=== PATIENT | male | born 1940 | race African-American/Black ===

== ENCOUNTER 2025-03-29 10:08 | Outpatient (CLI) | payer MEDICARE, SELFPAY ==
--- NOTE | 2025-03-29 10:11 | XR_ITS ---
FINAL REPORT CLINICAL HISTORY: Left knee pain FINDINGS: LEFT KNEE Three views were obtained. There is no fracture or dislocation. There are moderate to severe degenerative changes. The bones are osteopenic. No soft tissue abnormality is identified. IMPRESSION: Moderate to severe degenerative changes. Reviewed, Interpreted and Dictated by Kevin Cantor MD Transcribed by Shari Gatica Authenticated and [facility]
== END 2025-03-29 23:59 | disposition home or self-care (01) ==
LOC: RAD 10:09
PROVIDERS: PCP Internal Medicine; Visit Provider Physician Assistant
DX: M17.12 Unilateral primary osteoarthritis, left knee (principal); M85.862 Other specified disorders of bone density and structure, left lower leg
CPT/HCPCS: 73562

== ENCOUNTER 2025-06-08 10:24 | Outpatient (CLI) | payer MEDICARE, SELFPAY ==
--- OUTSIDE RECORDS SUMMARY | 2021-10-30 08:15 | XMS_ITS | Continuity of Care Document ---
Author Organization [facility] Address [address] [facility] [address] [place] [address] Phone Care Team Providers Care Rn Neurosurgical Name Role Phone Jignesh Cowart MD Unavailable [...] Visual Field Gomez No Offic/outpt E&m [facility] 45 Advance Directives Directive Yes / No Effective Date File Name No Information Encounters Encounter Description Practice Location Reason(s) For Visit Diagnoses Date Provider Providers Copied on Encounter [facility], [address], [place], [address] [place] [address] , tel:[phone] [facility] Dermatochalasis of both upper eyelidsDermatoch alasis of left upper eyelid 1 [facility] E[place]. [address], [address] [place] [address], . tel:[phone] Referring Provider: Jignesh Shields, [address], [address] [place] [address]. tel:[phone] [facility], [address] [place] [address], [address] [place] [address] , tel:[phone] [facility] No Information 1 [facility]. [address], [address] [place] [address], . tel:[phone] Referring Provider: Jignesh Shields, [address], [address] [place] [address]. tel:[phone] [facility] [address], [address] [place] [address] , tel:[phone] [facility] No Information 1 [facility]. [address], [address] [place] [address], . tel:[phone] Referring Provider: Jignesh Shields, [address], [place], [address] [place] [address]. tel:[phone] [facility], [address] , [place], [address] [place] [address] , tel:[phone] [facility] No Information 1 Lesly Hernandez. [address] [facility] [address] , [place], [address] [place] [address], . tel:[phone] [facility], [address], [place], [place], [id number] , tel:[phone] [facility] Dermatochalasis of both upper eyelidsDermatoch alasis of left upper eyelid 1 [facility] [place]. [address], [place], [address] [place] [address], . tel:[phone] Referring Provider: Jignesh Shields, [address] [facility], [place], [address] [place] [address]. [phone] [facility], [address] [facility], [place], [address] [place] [address] , tel:[phone] [facility] Dermatochalasis of left upper eyelidDermatocha lasis of both upper eyelids 1 Sup[facility] Egan. [address], [place], [address] [place] [address], . tel:[phone] Referring Provider: Jignesh Shields, [address] [facility] , [place], [address] [place] [address]. tel:[phone] Offic/outpt E&m [place] 45 [facility], [address] , [place], [address] [place] [address] , tel:[phone] [facility] Dermatochalasis of both upper eyelidsDermatoch alasis of left upper eyelid 1 Sup[facility] Egan. [address], [place], [place], [id number], . tel:[phone] Referring Provider: Bernie Mabry , [address] [place] [address], [address]. tel:[phone] Family History Family Member Type Diagnosis Age At Onset No Information Payers Payer name Insurance type Covered constitution party ID Authoriza tisadia(s) [employer] Dual Medicare CI [id number] Social History Type Description Quantity Date Captured [...]
--- OUTSIDE RECORDS SUMMARY | 2025-04-06 04:17 | XMS_ITS | Continuity of Care Document ---
Author Organization [facility] Address [address] [place] [address] Phone Care Team Providers Care Chiropractic Care Name Role Phone Moe MSN, TALENT CONSULTANT, Jessica Unavailable Unavai lable Allergies, Adverse Reactions, Alerts Substance Reaction Status Criticality NO KNOWN ALLERGIES Active No Inform ation Medications Medication Instructions Dosage Effective Dates (start - stop) Status Comments metoprolol succinate ER 50 mg tablet,extended release 24 hr take 1 tablet by oral route every day 50 MG - Active aspirin 81 mg tablet,delayed release take 1 tablet by oral route every day 81 MG - Active vitamin E 670 mg (1,000 unit) capsule take one tablet daily - Active diclofenac 1 % topical gel apply 2 gram by topical route 4 times every day to the affected area(s) 2.00 gram - Active metformin ER 500 mg tablet,extended release 24hr (osmotic) take 1 tablet by oral route 2 times every day with the evening meal 500 MG - Active pantoprazole 20 mg tablet,delayed release take 1 tablet by oral route every day 20 MG - Active valsartan 40 mg tablet take 1 tablet by oral route every day 40 MG - Active Jardiance 10 mg tablet take 1 tablet by oral route every day in the morning 10 MG - Active sertraline 25 mg tablet take 1 tablet by oral route every day 25 MG - Active Advance Directives Directive Yes / No Effective Date File Name No Information Encounters Encounter Description Practice Location Reason(s) For Visit Diagnoses Date Provider [facility], [address] [place], [address], [place] tel:[phone] No Information 5 Rosa Jessica. [address], [place], [id number] , [place]. tel: [phone] [facility], [address] [place] [address], [facility], tel:[phone] [facility] Vitamin B12 deficiency 5 Rosa Jessica. [address], [place], [id number] , [place]. tel: [phone] [facility], [address] [place] [address], [facility], tel:[phone] 72 [facility] [place] b12 # 2 of 6 (chief complaint) Vitamin D deficiencyVitamin B12 deficiency 5 Rosa Jessica. [address], [place], [address] [place] [address] , [place]. tel: [phone] [facility], [address] [place] [address], [facility], tel:[phone] 72 [facility] Follow up on labs (chief complaint) Left Knee Pain (chief complaint) Vitamin B12 deficiencyPain in left kneeType 2 diabetes mellitus without complicationsVitamin D deficiencyBody mass index [BMI] 27.0-27.9, adult Feb- 5 Rosa Jessica. [address], [place], [id number] , [place]. tel: [phone] [facility], [address] [place] [address], [facility], [place] tel:[phone] [facility] No Information 5 Rosa Jessica. [address] [place], [place], [address] [place] [address] , . tel: [phone] [facility], [address] [place] [address], [facility], [place] tel:[phone] [place] new to establish (chief complaint) Depression screening (chief complaint) Prapare (chief complaint) Essential tremorExtreme povertyLess than a high school diplomaEncounter for screening for depressionChronic atrial fibrillation, unspecifiedEssential (primary) hypertensionType 2 diabetes mellitus without complicationsBody mass index [BMI] 28.0-28.9, adultDepressionAnxiety 5 Moe Lopez. [address] [place], [id number] , . tel: [phone] Family History Family Member Type Diagnosis Age At Onset Daughter Problem Alive and well Daughter Problem cause of , complication s from DM Sister Problem Alive and well Daughter Problem Diabetes mellitus Daughter Problem Alive and well Daughter Problem Alive and well Son Problem cause of , complication s of DM Father Problem was shot while in the line o f duty, motorcycle police officer Mother Problem natural causes Son Problem Alive and well Daughter Problem Alive and well Son Problem Diabetes mellitus Son Problem Diabetes mellitus Daughter Problem Diabetes mellitus Payers Payer name Insurance type Covered green party ID Authormarciala berenice(s) [facility] [employer] CI [id number] Social History Type Description Quantity Date Captured Comments Alcohol Use Details Unknown Caffeine Use Details Unknown Tobacco Use Status No Information Smoking Status No Information Sex Male Sexual Orientation Straight or heterosexual Feb Gender Identity Male Chief Complaint And Reason For Visit No Information Plan Of Treatment Date Type Action Status Goal Diabetes screening. Due on A due Goal Vitamin B12. Due on 026 due Goal Hemoglobin A1C. Due on due Goal GFR. Due on due Goal Pneumococcal vaccine. Due on due Goal Foot exam. Due on due Goal Obtain Height, Weight, and B IL. Due on due Goal Tobacco screening. Due on Ap due Goal ECG. Due on due Goal Urine microalbumin. Due on A due Goal CBC. Due on due Goal Generalized Anxi ety Disorder - 7 (MANJINDER-7). Due on due Goal Follow up Plan f or abnormal BMI (Less than 18.5, greater than 25). Due on due Goal Dental exam. Due on due Goal Influenza vaccine. Due on Ma due Goal Depression screening. Due on due Goal CMP. Due on due Goal Lipid panel. Due on due Goal Vitamin D. Due on due Goal Urinalysis due Goal Dilated eye exam. Due on March due Goal Obtain blood Pressure. Due o n due Goal Drug Abuse Scree clotilde Test (DAST-10). Due on due Goal Tobacco Use Screening. Due o n due Goal Unhealthy drug use screening due Goal Tobacco screening. Due on Ap due Goal Follow up Plan f or abnormal BMI (Less than 18.5, greater than 25). Due on due Goal Urinalysis due Goal Generalized Anxi ety Disorder - 7 (MANJINDER-7). Due on due Goal Obtain blood Pressure. Due o n due Goal Lipid panel. Due on due Goal Pneumococcal vaccine. Due on due Goal Vitamin B12. Due on due Goal CMP. Due on due Goal Obtain Height, Weight, and B IL. Due on due Goal Hemoglobin A1C. Due on due Goal Depression screening. Due on due Goal Influenza vaccine. Due on due Goal Tobacco Use Screening. Due o n due Goal Vitamin D. Due on due Goal CBC. Due on due Goal ECG. Due on due Goal GFR. Due on due Goal Diabetes screening. Due on A due Goal Urine microalbumin. Due on A due Goal Dilated eye exam. Due on March due Goal Drug Abuse Scree clotilde Test (DAST-10). Due on due Goal Foot exam. Due on due Goal Unhealthy drug use screening due Goal Dental exam. Due on 025 due Goal Urine microalbumin. Due on A due Goal Follow up Plan f or abnormal BMI (Less than 18.5, greater than 25). Due on due Goal Lipid panel. Due on due Goal CMP. Due on due Goal Tobacco Use Screening. Due o n due Goal Tobacco screening. Due on Ap due Goal ECG. Due on due Goal Drug Abuse Scree clotilde Test (DAST-10). Due on due Goal Generalized Anxi ety Disorder - 7 (MANJINDER-7). Due on due Goal Vitamin D. Due on due Goal Obtain Height, Weight, and B IL. Due on due Goal Influenza vaccine. Due on due Goal Dental exam. Due on due Goal Obtain blood Pressure. Due o n due Goal Foot exam. Due on due Goal CBC. Due on due Goal Vitamin B12. Due on due Goal Dilated eye exam. Due on March due Goal Hemoglobin A1C. Due on due Goal Pneumococcal vaccine. Due on due Goal Unhealthy drug use screening due Goal Urinalysis due Goal GFR. Due on due Goal Depression screening. Due on due Goal Diabetes screening. Due on A due Goal Obtain blood Pressure. Due o n due Goal Obtain Height, Weight, and B IL. Due on due Goal Influenza vaccine. Due on due Goal Vitamin B12. Due on due Goal Follow up Plan f or abnormal BMI (Less than 18.5, greater than 25). Due on due Goal Tobacco Use Screening. Due o n due Goal Generalized Anxi ety Disorder - 7 (MANJINDER-7). Due on due Goal Urinalysis due Goal Vitamin D. Due on due Goal Tobacco screening. Due on due Goal Foot exam. Due on due Goal Dilated eye exam. Due on Feb due Goal Unhealthy drug use screening due Goal Depression screening. Due on due Goal Hemoglobin A1C. Due on due Goal Lipid panel. Due on 026 due Goal Dental exam. Due on 025 due Goal Pneumococcal vaccine. Due on due Goal Drug Abuse Scree clotilde Test (DAST-10). Due on due Goal ECG. Due on due Goal Urine microalbumin. Due on A due Goal Diabetes screening. Due on A due Goal GFR. Due on due Goal CBC. Due on due Goal CMP. Due on due Goal Obtain blood Pressure. Due o n due Goal Diabetes screening. Due on A due Goal Tobacco screening. Due on due Goal Generalized Anxi ety Disorder - 7 (MANJINDER-7). Due on due Goal Vitamin D. Due on due Goal Depression screening. Due on due Goal Dilated eye exam. Due on Feb due Goal Influenza vaccine. Due on due Goal Vitamin B12. Due on due Goal Pneumococcal vaccine. Due on due Goal CMP. Due on due Goal Urinalysis due Goal Drug Abuse Scree clotilde Test (DAST-10). Due on due Goal Unhealthy drug use screening due Goal Tobacco Use Screening. Due o n due Goal Follow up Plan f or abnormal BMI (Less than 18.5, greater than 25). Due on due Goal ECG. Due on due Goal Foot exam. Due on due Goal Dental exam. Due on due Goal CBC. Due on due Goal Obtain Height, Weight, and B IL. Due on due Goal Lipid panel. Due on due Goal Hemoglobin A1C. Due on due Goal GFR. Due on due Goal Urine microalbumin. Due on A due Goal Lifestyle education regardin g diet completed Goal Influenza vaccine. Due on due Goal Dilated eye exam. Due on Feb due Goal GFR. Due on due Goal Obtain blood Pressure. Due o n due Goal Urinalysis due Goal Urine microalbumin. Due on A due Goal Foot exam. Due on due Goal Pneumococcal vaccine. Due on due Goal Diabetes screening. Due on A due Goal Dental exam. Due on due Goal ECG. Due on due Goal Depression screening. Due on due Goal Hemoglobin A1C. Due on due Goal Tobacco Use Screening. Due o n due Goal CMP. Due on due Goal Vitamin B12. Due on due Goal Follow up Plan f or abnormal BMI (Less than 18.5, greater than 25). Due on due Goal Unhealthy drug use screening due Goal Drug Abuse Scree clotilde Test (DAST-10). Due on due Goal Lipid panel. Due on due Goal Vitamin D. Due on due Goal CBC. Due on due Goal Tobacco screening. Due on Ap due Goal Obtain Height, Weight, and B IL. Due on due Goal Generalized Anxi ety Disorder - 7 (MANJINDER-7). Due on due Goal Lifestyle education regardin g diet completed Referral Referred To: [facility] Ordered: Referrals: Cardiology. [facility]. Location: [place]. Evaluate and treat Appointment date/timeframe: 03/16/2025 ordered History Of Present Illness Encounter Date Complaint History Of Prese nt Illness b12 # 2 of 6 Demario is here t kemal for b12 # 2 of 6RTC 1 week for next injection Left Knee Pain It occurs consta ntly and is worsening. Location: left knee. The pain is aching and sharp. Context: there is no injury. The pain is aggravated by movement. Associated symptoms include decreased mobility, joint tenderness, limping and swelling. Pertinent negatives include bruising, crepitus and joint instability. Additional information: long standing osteo arthritis, and joint effusion of left knee. (previously hospitalized in [place] for his knee). Follow up on labs Demario's labs are back today. Provider is going to go over labs with patient.He is a newer pt to us, and today reports he has been out of his medications for months.He recently relocated here from [place] to live with his daughter.Alk Phos is 130LDL 63, trigs 221b12 209B12 injection given today in clinic. Pt to rtc in 1 week for second b12 injection.will do series of 6, then change to monthlyVit D 20.2TSH okBP: 148/96- started on Valsartan 40 mg and was taking 50 mg of metoprolol succhas been out of medications, but has been sent to our pharmacy- and medications have arrivedhe reports is taking now. new to establish Demario is an 84 yo Male here today to establish care. His daughter and are here with him. Daughter is reporting signs of early dementia, possible parkinson disease. She reports he has a tremor when writing or eating. Has Hx of a-fib- sees cardiology monthlyHTN- on medication- does not know what medication at this timeType 2 DM- on ozempic currentlyBIL Knee pain- hx of getting steroid injection in both knees-osteoarthritis.Demario has relocated from [place], [place] to live here with his daughter r/t his health disparities.He is out of some of his medicationsHe does not know what medication he is takingI have called [facility] in [place], [place] [phone] and left message to fax a current list of medication ( pharmacy was closed for lunch)- they did fax over a list of his medication in the past three months, only sertraline 50 mg was on his list.He has been on Metformin, but this causes him too much loose stools. She reports he is on Ozempic as well, however, does not know the dose, or when the last time he had it. He wears a depends r/t incontinence and decreased mobility. He is a falls risk.Per his daughter and his report, he has not had any falls, but walks in a shuffle, with two canes, and has tremors. He would benefit from a walker, and some other DME at his home: potty chair, shower chair, depends. He is currently without insurance at this time and cannot afford these things. She would like him to be evaluated for Parkinson disease, and referral to Neurology.- but again cannot go at this time r/t lack of insurance. She is filing for insurance currently, and would like to wait until it is in place.BP- 145/83 uncontrolled, hx of a-fib. Will start [id number] 9.4- has not had DM eye exam in 2 years- will start Jardiance and Metformin ERnon-fasting labs collected today- will review with results in 1-2 weeks. Dwain Prakash complete d 03/01/25. -mamadou ERICKSON Depression screening Depression screening completed 03/01/25. Pt scored 0, provider aware. -MAMADOU ERICKSON Instructions Date Instruction Additional Infor letty 15 minutes of sun ex posure daily to naturally raise vitamin D levelsstart taking weekly vit D supplement Related to Vitamin D deficiency Patient educated on the importance of improved glycemic control. Counseled on diet, exercise and other lifestyle modifications. Monitor blood glucose and keep a log as instructed by checking fasting glucose in the AM and non fasting before bedtime with any additional checks as instructed. Patient instructed to bring glucose log to all scheduled appointments. Instructed on the importance of taking all medications as prescribed. Patient aware of the importance of diabetic eye exams, dental check ups, foot exams and diabetic foot care. Patient verbalized understanding. Related to Type 2 diabetes mellitus without complications rest, ice, compressi on as instructed to reduce post joint injection(s) pain and swelling Related to Pain in left knee B-12 injection given in office today. Eat foods rich in B-12. Additional oral B12 replacement if indicated. Related to Vitamin B12 deficiency Giving encouragement to exercise Related to Body mass index [BMI] 27.0-27.9, adult Lifestyle education regarding di et Related to Body mass index [BMI] 27.0-27.9, adult Discussed stress red uction techniques. Take medications as prescribed. Limit caffeine and nicotine. Try to follow a set sleep schedule. Get daily moderate exercise if able to tolerate. Related to Anxiety Patient instructed o f the importance of taking medications as prescribed, following a low salt diet as well as getting physical activity as tolerated. Patient advised to keep BP log daily checking each morning and before bed. Patient to call the clinic if systolic blood pressure is greater than 150 and/or diastolic blood pressure is staying greater than 90. Related to Essential (primary) hypertension Patient educated on the importance of maintaining glycemic control. Counseled on diet, exercise and other lifestyle factors that can impact glucose control. Monitor blood glucose and keep a log as instructed by checking fasting glucose in the AM and non fasting before bedtime with any additional checks as instructed. Patient instructed to bring glucose log to all scheduled appointments. Instructed on the importance of taking all medications as prescribed. Patient aware of the importance of diabetic eye exams, dental check ups, foot exams and diabetic foot care. Patient verbalized understanding. Related to Type 2 diabetes mellitus without complications Giving encouragement to exercise Related to Body mass index [BMI] 28.0-28.9, adult Lifestyle education regarding di et Related to Body mass index [BMI] 28.0-28.9, adult Assessments Type Assessment Date No Information
--- OUTSIDE RECORDS SUMMARY | 2025-04-10 21:15 | XMS_ITS ---
Author Organization [employer] Address [address] [place] [address] Care Team Providers Care Bee Breeder Name Role Phone Unique Mckeon Primary Care Provider REASON FOR VISIT Lab Encounters Encounter Location Date Provider Diagnosis [facility] [address] [place], [place] [phone] 04/11/2025 Unique Mckeon Plan Of Treatment No Information Progress Notes * Demario KEVIN SDOB: (85 yo M)Acc No.[id number]:04/11/2025 UNLOCKED PROGRESS NOTE Patient: Cornelius gonzalezDemario quick Provider: Madeleine Mckeon :1940 A ge:84 Y S ex:Male Date:04/11/2025 Address:[address] [place] [address], [address] [place], [place] [id number] Subjective: * Chief Complaints: * L ab [...] Temp:98.0F, Ht:67in, Wt:151.0lbs, BMI:23.65Index, Oxygen Sat:94%, Pain Scale:-10 * 10/10/2024 BP:133/83mm Hg, RR:16/min, P ulse:78/min, Temp:98.2F, Ht:67in, Wt:147.8lbs, BMI:23.15Index, Oxygen Sat:94%, Pain Scale:01-10 * Electronic signature of Murali Mckeon MD on 06/08/2025 at 10:27 AM EDT Sign off status: Pending * Provider: Madeleine Mckeon Date: 0 04/11/2025 Generated for Marii tong/Julian/Maribel on: 0 06/08/2025 10:27 AM EDT
--- OUTSIDE RECORDS SUMMARY | 2025-04-11 09:15 | XMS_ITS ---
Author Organization [employer] Address [address] [place] [address] Care Team Providers Care Medical Clinic Manager Name Role Phone Unique Mckeon Primary Care Provider [phone] REASON FOR VISIT Lab Encounters Encounter Location Date Provider Diagnosis [facility] [address] [place], [place] [phone] 04/11/2025 Unique Mckeon Plan Of Treatment No Information Progress Notes * Demario KEVIN SDOB: (85 yo M)Acc No.[id number]:04/11/2025 UNLOCKED PROGRESS NOTE Patient: Cornelius gonzalezDemario quick Provider: Madeleine Mckeon :1940 A ge:84 Y S ex:Male Date:04/11/2025 Address:[address] [place] [address], [address] [place], [place] [phone] Subjective: * Chief Complaints: * L ab [...] of Murali Mckeon MD on 06/08/2025 at 10:28 AM EDT Sign off status: Pending * Provider: Madeleine Mckeon Date: 0 04/11/2025 Generated for Marii tong/Julian/Maribel on: 0 06/08/2025 10:28 AM EDT
--- OUTSIDE RECORDS SUMMARY | 2025-04-19 10:20 | XMS_ITS ---
Author Organization [employer] Address [address] [place] [address] Care Team Providers Care Laminator Printed Circuit Boards Name Role Phone Unique Mckeon Primary Care Provider REASON FOR VISIT routine visit Encounters Encounter Location Date Provider Diagnosis [facility] [address] [place], [place] [phone] 04/19/2025 Unique Mckeon Plan Of Treatment No Information Progress Notes * Demario KEVIN SDOB: (85 yo M)Acc No.[id number]:04/19/2025 UNLOCKED PROGRESS NOTE Progress Notes Patient: Cornelius villeda Demario [place] Provider: Madeleine Mckeon :1940 A ge:84 Y S ex:Male Date:04/19/2025 Address:[address] [place] [address], [address] [place], [place] [id number] Subjective: * Chief Complaints: * R outine visit Objective: Past Vitals:* 02/08/2025 BP:139/87mm Hg, RR:15/min, [...] Temp:98.2F, Ht:67in, Wt:147.8lbs, BMI:23.15Index, Oxygen Sat:94%, Pain Scale:-10 * Electronic signature of Murali Mckeon MD on 06/08/2025 at 10:28 AM EDT Sign off status: Pending * Provider: Madeleine Mckeon Date: 0 04/19/2025 Generated for Marii tong/Julian/Maribel on: 0 06/08/2025 10:28 AM EDT
--- NOTE | 2025-06-08 10:15 | CA_ITS ---
FINAL REPORT CLINICAL HISTORY: Afib on blood thinners, S/p fall with extensive bruising to posterior leg with pain and edema. FINDINGS: DUPLEX VENOUS SONOGRAPHY OF THE LEFT LOWER EXTREMITY Multiple transverse and longitudinal scans were performed of the femoropopliteal deep venous system, with augmentation and compression maneuvers. FINDINGS: Normal phasic flow was noted in the visualized deep venous system. No intraluminal increased echogenicity is noted to suggest thrombus. There is normal compression and augmentation of the venous structures. No abnormal venous collaterals are seen. IMPRESSION: No evidence of deep venous thrombosis of the left lower extremity. Reviewed, Interpreted and Dictated by Dasha Ly MD Transcribed by Keyonna Terry Authenticated and [facility]
--- OUTSIDE RECORDS SUMMARY | 2025-06-08 10:27 | XMS_ITS | Patient Health Record ---
Author Organization [facility] Address [address] [place] [id number] Care Team Providers Care Business Resiliency Manager Name Role Phone LindaUnique Primary Care Provider Allergies Allergen (clinical drug ingredient) Drug/Non Drug Allergy documented on EMR Reaction Allergy Type Onset Date Status angiotensin-converting enzyme inhibitor (FN) ALFONZO Inhibitors Angioedema Drug Allergy 05/06/2021 Acti ve Results Component Value Reference Range Flag Notes DEPRESSION SCREENING Reviewed date:01/05/2025 12:48:06 PM Interpretation: Performing Lab: Notes/Report: Advance Directive Reviewed date:01/05/2025 12:48:17 PM Interpretation: Performing Lab: Notes/Report: MONITORING/COUNSELING PHYSIC AL ACTIVITY Reviewed date:01/05/2025 12:48:29 PM Interpretation: Performing Lab: Notes/Report: FALL RISK ASSESSMENT Reviewed date:01/05/2025 12:48:39 PM Interpretation: Performing Lab: Notes/Report: A1c w/GlycoMark(R) Reflex Reviewed date:10/10/2024 09:43:11 AM Interpretation: Performing Lab:[facility] [address] [id number], Phone - [phone], Director - Sameer Notes/Report: Hb A1c Diabetic Assessment 13.3 H Note: A reflex test was ordered on this specimen. If A1c results are between a value of 6.0 to 8.0 (including 6.0 and 8.0), GlycoMark testing is performed. GlycoMark reflects post prandial glucose spikes from the past 2 weeks, where as A1c reflects average glycemic control over the past 3 months. Reference Range: Normal: <5.7 Increased risk for diabetes: 5.7 - 6.4 Ongoing Hyperglycemia: >6.4 Glycemic control for adults with diabetes: <7.0 (ADA) Estimated Average Glucose 335 GlycoMark(R)(1,5 AG) TNP Testing Not Indicated GlycoMark(TM) is intended for use with managing glycemic control in diabetic patients. A low result corresponds to high glucose peaks. 1, 5-AG blood levels can be affected by clinical conditions or medications. Please refer to the directory of services or [facility] website test menu for detailed list of limitations. Vitamin B12 and Folate Reviewed date:01/12/2025 07:43:51 AM Interpretation: Performing Lab:[facility] [address] [id number], Phone - [phone], Director - Sameer Notes/Report: Vitamin B12 776 163-7078 pg/mL Folate (Folic Acid), Serum 16.2 >3.0 ng/mL A serum folate concentration of less than 3.1 ng/mL is considered to represent clinical deficiency. Hemoglobin A1C Reviewed date:01/12/2025 07:43:51 AM Interpretation: Performing Lab:[facility] [place], [address] [place] [id number], Phone - [phone], Director - Sameer Notes/Report: Hemoglobin A1c 11.7 4.8-5.6 % H . Prediabetes: 5.7 - 6.4 Diabetes: >6.4 Glycemic control for adults with diabetes: <7.0 Hemoglobin A1C Reviewed date:07/08/2024 08:21:57 AM Interpretation: Performing Lab:[facility] [address] [id number], Phone - [phone], Director - Sameer Notes/Report: Hemoglobin A1c 12.4 4.8-5.6 % H . Prediabetes: 5.7 - 6.4 Diabetes: >6.4 Glycemic control for adults with diabetes: <7.0 Lipid Panel With LDL/HDL Rat io Reviewed date:10/10/2024 09:43:11 AM Interpretation: Performing Lab:[facility] [address] [id number], Phone - [phone], Director - Sameer Notes/Report: Cholesterol, Total 138 100-199 mg/dL Triglycerides 163 0-149 mg/dL H HDL Cholesterol 47 >39 mg/dL VLDL Cholesterol Miguel 28 5-40 mg/dL LDL Chol Calc (RUST) 63 0-99 mg/dL LDL/HDL Ratio 1.3 0.0-3.6 ratio LDL/HDL Ratio Men Women 1/2 Avg.Risk 1.0 1.5 Avg.Risk 3.6 3.2 2X Avg.Risk 6.2 5.0 3X Avg.Risk 8.0 6.1 Comprehensive Metabolic Pane l 14 (CMP) Reviewed date:10/10/2024 09:43:11 AM Interpretation: Performing Lab:[facility] [address] [id number], Phone - [phone], Director - Sameer Notes/Report: Glucose 454 70-99 mg/dL H BUN 13 8-27 mg/dL Creatinine 0.68 0.76-1.27 mg/dL L eGFR 91 >59 mL/min/1.73 BUN/Creatinine Ratio 19 10-24 Sodium 135 134-144 mmol/L Potassium 4.5 3.5-5.2 mmol/L Chloride 100 96-106 mmol/L Carbon Dioxide, Total 22 20-29 mmol/L Calcium 8.7 8.6-10.2 mg/dL Protein, Total 6.4 6.0-8.5 g/dL Albumin 3.9 3.7-4.7 g/dL Globulin, Total 2.5 1.5-4.5 g/dL Bilirubin, Total 0.5 0.0-1.2 mg/dL Alkaline Phosphatase 164 44-121 IU/L H AST (SGOT) 15 0-40 IU/L ALT (SGPT) 13 0-44 IU/L Comprehensive Metabolic Pane l 14 (CMP) Reviewed date:01/12/2025 07:43:52 AM Interpretation: Performing Lab:[facility] [place] [address] [place], [place] [id number], Phone - [phone], Director - Sameer Notes/Report: Glucose 67 70-99 mg/dL L BUN 21 8-27 mg/dL Creatinine 0.82 0.76-1.27 mg/dL eGFR 86 >59 mL/min/1.73 BUN/Creatinine Ratio 26 10-24 H Sodium 137 134-144 mmol/L Potassium 4.4 3.5-5.2 mmol/L Chloride 102 96-106 mmol/L Carbon Dioxide, Total 20 20-29 mmol/L Calcium 9.7 8.6-10.2 mg/dL Protein, Total 7.4 6.0-8.5 g/dL Albumin 4.0 3.7-4.7 g/dL Globulin, Total 3.4 1.5-4.5 g/dL Bilirubin, Total 0.3 0.0-1.2 mg/dL Alkaline Phosphatase 135 44-121 IU/L H AST (SGOT) 22 0-40 IU/L ALT (SGPT) 13 0-44 IU/L Written Authorization Reviewed date:07/08/2024 08:21:57 AM Interpretation: Performing Lab:[facility] [address] [id number], Phone - [phone], Director - Sameer Notes/Report: Written Authorization Written Authorization Received. Authorization received from SIGNATURE ON FILE 06-30-2024 Logged by Freya Candelario FUNCTIONAL STATUS ASSESSMENT Reviewed date:01/05/2025 12:48:52 PM Interpretation: Performing Lab: Notes/Report: MEDICATION REVIEW Reviewed date:01/05/2025 12:49:02 PM Interpretation: Performing Lab: Notes/Report: TOBACCO SCREENING Reviewed date:01/05/2025 12:49:15 PM Interpretation: Performing Lab: Notes/Report: BLADDER CONTROL ASSESSMENT Reviewed date:01/05/2025 12:49:25 PM Interpretation: Performing Lab: Notes/Report: Pain Screening - No Pain Pre sent Reviewed date:01/05/2025 12:49:35 PM Interpretation: Performing Lab: Notes/Report: Lipid Panel Reviewed date:06/27/2024 03:34:00 PM Interpretation: Performing Lab:[facility] [address] [id number], Phone - [phone], Director - Sameer Notes/Report: Cholesterol, Total 156 100-199 mg/dL Triglycerides 180 0-149 mg/dL H HDL Cholesterol 51 >39 mg/dL VLDL Cholesterol Miguel 30 5-40 mg/dL LDL Chol Calc (NIH) 75 0-99 mg/dL Lipid Panel Reviewed date:01/12/2025 07:43:52 AM Interpretation: Performing Lab:[address] [id number], Phone - [phone], Director - Sameer Notes/Report: Cholesterol, Total 123 100-199 mg/dL Triglycerides 55 0-149 mg/dL HDL Cholesterol 65 >39 mg/dL VLDL Cholesterol Miguel 12 5-40 mg/dL LDL Chol Calc (RUST) 46 0-99 mg/dL Elder Abuse Suspicion Index (EASI) Reviewed date:01/05/2025 12:49:51 PM Interpretation: Performing Lab: Notes/Report: TSH reflex to T4 Reviewed date:10/10/2024 09:43:11 AM Interpretation: Performing Lab:[address] [id number], Phone - [phone], Director - Sameer Notes/Report: TSH 2.300 0.450-4.500 uIU/mL Microalb/Creat Ratio, Randm Ur Reviewed date:01/12/2025 07:43:52 AM Interpretation: Performing Lab:[facility] [id number], Phone - [phone], Director - Sameer Notes/Report: Creatinine, Urine 89.2 Not Estab. mg/dL Albumin, Urine 38.8 Not Estab. ug/mL Alb/Creat Ratio 43 0-29 mg/g creat H Normal: 0 - 29 Moderately increased: 30 - 300 Severely increased: >300 Vitamin D, 25-Hydroxy Reviewed date:01/12/2025 07:43:52 AM Interpretation: Performing Lab:[facility] [id number], Phone - [phone], Director - Sameer Notes/Report: Vitamin D, 25-Hydroxy 26.6 30.0-100.0 ng/mL L CBC with Diff, Platelet, NLR Reviewed date:10/10/2024 09:43:11 AM Interpretation: Performing Lab:[address] [id number], Phone - [phone], Director - Sameer Notes/Report: WBC 7.8 3.4-10.8 x10E3/uL Effective October 10, 2024 profile [id number] WBC will be made non-orderable as a stand-alone order code. RBC 4.13 4.14-5.80 x10E6/uL L Hemoglobin 12.8 13.0-17.7 g/dL L Hematocrit 38.1 37.5-51.0 % MCV 92 79-97 fL MCH 31.0 26.6-33.0 pg MCHC 33.6 31.5-35.7 g/dL RDW 13.2 11.6-15.4 % Platelets 190 150-450 x10E3/uL Neutrophils 62 Not Estab. % Lymphs 26 Not Estab. % Monocytes 8 Not Estab. % Eos 2 Not Estab. % Basos 1 Not Estab. % Neutrophils (Absolute) 5.0 1.4-7.0 x10E3/uL Lymphs (Absolute) 2.0 0.7-3.1 x10E3/uL Neut/Lymph Ratio 2.5 0.0-2.9 ratio Published COVID-19 studies suggest: Low likelihood of severe COVID-19 disease progression 0.0-2.9 High likelihood of severe COVID-19 disease progression >4.9 Monocytes(Absolute) 0.6 0.1-0.9 x10E3/uL Eos (Absolute) 0.2 0.0-0.4 x10E3/uL Baso (Absolute) 0.0 0.0-0.2 x10E3/uL Immature Granulocytes 1 Not Estab. % Immature Grans (Abs) 0.0 0.0-0.1 x10E3/uL TSH Reviewed date:06/27/2024 03:34:00 PM Interpretation: Performing Lab:[facility] [place], [address] [place] [id number], Phone - [phone], - Sameer Notes/Report: TSH 2.500 0.450-4.500 uIU/mL TSH Reviewed date:01/12/2025 07:43:52 AM Interpretation: Performing Lab:[facility] [place], [address] [place] [id number], Phone - [phone], - Sameer Notes/Report: TSH 4.650 0.450-4.500 uIU/mL H CMP14 Reviewed date:06/27/2024 03:34:00 PM Interpretation: Performing Lab:[facility] [address] [place] [id number], Phone - [phone], Director - Sameer Notes/Report: Glucose 440 70-99 mg/dL H BUN 15 8-27 mg/dL Creatinine 0.82 0.76-1.27 mg/dL eGFR 86 >59 mL/min/1.73 BUN/Creatinine Ratio 18 10-24 Sodium 136 134-144 mmol/L Potassium 4.6 3.5-5.2 mmol/L Chloride 101 96-106 mmol/L Carbon Dioxide, Total 23 20-29 mmol/L Anion Gap 12.0 10.0-18.0 mmol/L Calcium 9.5 8.6-10.2 mg/dL Protein, Total 6.3 6.0-8.5 g/dL Albumin 4.0 3.7-4.7 g/dL Globulin, Total 2.3 1.5-4.5 g/dL Bilirubin, Total 0.4 0.0-1.2 mg/dL Alkaline Phosphatase 129 44-121 IU/L H AST (SGOT) 15 0-40 IU/L ALT (SGPT) 13 0-44 IU/L CBC/D/Plt Reviewed date:06/27/2024 03:34:01 PM Interpretation: Performing Lab:[facility] [address] [place] [id number], Phone - [phone], Director - Sameer Notes/Report: WBC 6.8 3.4-10.8 x10E3/uL RBC 4.70 4.14-5.80 x10E6/uL Hemoglobin 12.6 13.0-17.7 g/dL L Hematocrit 39.2 37.5-51.0 % MCV 83 79-97 fL MCH 26.8 26.6-33.0 pg MCHC 32.1 31.5-35.7 g/dL RDW 18.7 11.6-15.4 % H Platelets 244 150-450 x10E3/uL Neutrophils 60 Not Estab. % Lymphs 29 Not Estab. % Monocytes 8 Not Estab. % Eos 2 Not Estab. % Basos 0 Not Estab. % Neutrophils (Absolute) 4.1 1.4-7.0 x10E3/uL Lymphs (Absolute) 1.9 0.7-3.1 x10E3/uL Monocytes(Absolute) 0.5 0.1-0.9 x10E3/uL Eos (Absolute) 0.1 0.0-0.4 x10E3/uL Baso (Absolute) 0.0 0.0-0.2 x10E3/uL Immature Granulocytes 1 Not Estab. % Immature Grans (Abs) 0.0 0.0-0.1 x10E3/uL Vitamin B12 490 654-3761 pg/mL Folate (Folic Acid), Serum 10.2 >3.0 ng/mL A serum folate concentration of less than 3.1 ng/mL is considered to represent clinical deficiency. Ferritin 45 30-400 ng/mL Reticulocyte Count 1.8 0.6-2.6 % Iron Bind.Cap.(TIBC) 272 250-450 ug/dL UIBC 224 111-343 ug/dL Iron 48 38-169 ug/dL Iron Saturation 18 15-55 % CBC/D/Plt Reviewed date:01/12/2025 07:43:52 AM Interpretation: Performing Lab:[facility] [place], [address] [place] [address], [place], [place] [id number], Phone - [phone], Director - Sameer Notes/Report: WBC 10.3 3.4-10.8 x10E3/uL RBC 4.78 4.14-5.80 x10E6/uL Hemoglobin 14.4 13.0-17.7 g/dL Hematocrit 44.6 37.5-51.0 % MCV 93 79-97 fL MCH 30.1 26.6-33.0 pg MCHC 32.3 31.5-35.7 g/dL RDW 13.4 11.6-15.4 % Platelets 318 150-450 x10E3/uL Neutrophils 68 Not Estab. % Lymphs 21 Not Estab. % Monocytes 8 Not Estab. % Eos 2 Not Estab. % Basos 1 Not Estab. % Neutrophils (Absolute) 7.0 1.4-7.0 x10E3/uL Lymphs (Absolute) 2.2 0.7-3.1 x10E3/uL Monocytes(Absolute) 0.8 0.1-0.9 x10E3/uL Eos (Absolute) 0.2 0.0-0.4 x10E3/uL Baso (Absolute) 0.1 0.0-0.2 x10E3/uL Immature Granulocytes 0 Not Estab. % Immature Grans (Abs) 0.0 0.0-0.1 x10E3/uL Reason For Referral Reason Follow Up Urology DO S 09/06/24 Diagnosis 1 Phimosis (N47.1) Referral Organization [facility] Referring Provider First Name Uniqeu Referring Provider Last Name Linda Referring Provider Speciality Internal edicine Referred Provider Altaf Jimenez Referred Provider Specialty Urology Procedure 1 Established - Detail ed (69348) Procedure 2 Urinalysis (w/o micr o Auto) (57379) General Notes Taylor Adan 12/16 03:10:12 PM >has not been seen since 03/08/24 Clinical Notes Ana Maria Davis 2023 01:29:15 PM >CM reviewed background information and deems this referral as approved.Linda Anika 09/05/2024 12:50:20 PM >Approved. Referral Priority Routine Referral Appointment Date 09/06/2024 Reason Diabetic pt recently admitted at [facility] for hyperglycemia, all records scanned into chart Diagnosis 1 Type 2 diabetes jarrod itus with hyperglycemia (E11.65) [facility] Referring Provider First Name Unique Referring Provider Last Name Linda [facility] Internal edicine Referred Provider Specialty Health Inter vention, Disease Mgmt General Notes Jessica Monk 01/18 09:00:32 AM >Attempted to contact patient to initiate follow up calls. LVM requesting a return call to [phone]. [place] Nurse will follow up.Lacho Melissa 01/30/2025 09:41:10 AM >Attempted to contact patient to initiate follow up calls. LVM requesting a return call to [phone]. [place] Nurse will follow up.Lacho Melissa 02/03/2025 02:03:45 PM >Attempted to contact patient to initiate follow up calls. LVM requesting a return call to [phone]. UTR sent, please have patient reach out to [place] Team nurse to initiate follow up calls. Referral Priority Routine Reason New Patient Fax [place] Diagnosis 1 Knee pain (M25.569) Referral Organization [facility] Referring Provider First Name Unique Referring Provider Last Name Linda Referring Provider Speciality Internal M edicine Referred Provider Yin Hargrove Referred Provider Specialty Orthopedic S urgery Procedure 1 New Patient - Compre hensive/Moderate (06893) Procedure 2 Depo-Medrol, 1mg (J1 010) Procedure 3 INJ BETAMETHSN ACTAT &SOD PHOSPH-3MG (J0702) Procedure 4 DRAIN/INJECT, JOINT/ BURSA, MAJOR (56201) Procedure 5 X-RAY EXAM, KNEE, 4 OR MORE (14450) General Notes Ana Maria Davis 2024 10:59:48 AM >This is a f/u from hospitalization after having his lindsay cyst drainined. CM reviewed background information and deems this referral as approved., Unique Mckeon 01/06/2025 12:26:09 PM >Approved., Taylor Adan 03/07/2025 09:40:17 AM >faxed request Referral Priority Routine Referral Appointment Date 01/11/2026 Medications Medication SIG (Take, Route, Frequency, Duration) Notes Start Date End Date Status Ozempic (0.25 or 0.5 MG/DOSE) 2 MG/3ML Solution Pen-injector INJECT 1 MG WEEKLY UNDER THE SKIN (stomach, thigh, upper arm; rotate) - STORE IN FRIDGE Subcutaneous OTHER; Duration: 0 days PT GETTING MED THROUGH ASSISTANCE PROGRAM THROUGH [employer] [facility] . CONTACT [facility] PHARMACIST FOR ANY CHANGES. DO NOT SEND TO LOCAL PHARMACY. per .22-25 [facility] admission 03/17/2024 Active Centrum Silver - Tablet TAKE 1 TABLET Daily In The Morning Oral DAILY; Duration: 0 days per .22-25 [facility] admission 11/29/2018 Active metFORMIN HCl 1000 MG Tablet TAKE 1 TABLET BY MOUTH TWICE DAILY (IN THE MORNING AND EVENING); Duration: 28 Active OneTouch Delica Plus [id number] - Miscellaneous ; Duration: 90 days 04/01/2022 Active Pantoprazole Sodium 40 MG Tablet Delayed Release TAKE 1 TABLET BY MOUTH ONCE A DAY HALF AN HOUR BEFORE FOOD IN THE MORNING (FOR BLISTER PACK); Duration: 28 Active Ondansetron 4 MG Tablet Disintegrating DISSOLVE 1 MG BY MOUTH EVERY 8 HOURS NEEDED FOR NAUSEA Oral OTHER; Duration: 5 days per [facility] admission 05/28/2023 Active Multi-Vitamin/Iron - Tablet Oral; Duration: 0 days per [facility] admission 04/04/2022 Active Aspirin 81 MG Tablet Delayed Release TAKE 1 TABLET DAILY IN THE EVENING; Duration: 28 per [facility] admission Active Clotrimazole 1 % Cream APPLY SPARINGLY T O AFFECTED AREA(S) TWICE DAILY External TWICE DAILY; Duration: 0 days per [facility] admission 09/30/2023 Active Iron 325 (65 Fe) MG Tablet TAKE 1 TABLET BY MOUTH ONCE DAILY Oral OTHER; Duration: 0 days per [facility] admission 03/17/2024 Active Capptain Reflect w/Device Kit ; Duration: 1 days 04/01/2022 Active Metoprolol Succinate ER 50 MG Tablet Extended Release 24 Hour TAKE 1 TABLET BY MOUTH EVERY DAY; Duration: 28 Active Sertraline HCl 50 MG Tablet TAKE 1 TABLET BY MOUTH ONCE DAILY; Duration: 90 Active Eye Allergy Itch/Redness Rel 0.1 % Solution INSTILL 1 DROP IN BOTH EYES TWICE DAILY Ophthalmic OTHER; Duration: 25 days per [facility] admission 07/09/2022 Active B-12 1000 MCG Tablet TAKE 1 TABLET BY MOUTH EVERY DAY DIRECTED Oral OTHER; Duration: 0 days per [facility] admission 03/17/2024 Active Lantus 100 UNIT/ML Solution 45 unit(s) Subcutaneous daily per [facility] admission Active Vitamin D3 1.25 MG (98938 UT) Capsule 1 capsule Orally once a week x 12 weeks then take OTC vitamin D 2000 units daily; Duration: 90 day(s) 01/17/2025 Active Acetaminophen 325 MG Tablet 1 tablet as needed Orally every 6 hrs per [facility] admission Active True Metrix Blood Glucose Test - Strip TEST 3 TIMES DAILY. In Vitro 3 TIMES DAILY; Duration: 0 days 03/28/2022 Active Vitamin B-12 6000 MCG Tablet Sublingual Sublingual; Duration: 0 days per 2024. [facility] admission 04/04/2022 Active Tamsulosin HCl 0.4 MG Capsule TAKE 1 CAPSULE BY MOUTH AT BEDTIME (FOR BLISTER PACK) Oral OTHER; Duration: 28 days per 25 [facility] admission 01/06/2019 Active Triamcinolone Acetonide 0.1 % Cream APPLY 2-3 TIMES DAILY TO AFFECTED AREA(S). External 3 TIMES DAILY; Duration: 0 days per [facility] admission 01/16/2020 Active Immunizations Vaccine Route Administration Date Status Comme nts COVID-19 ([employer]), Single Dose IM Intramuscular 01/18/2021 Administered COVID-19 ([employer]), generic/dose unspecified IM Intramuscular 11/07/2021 Administered Fluad Unknown 12/07/2019 Administered Fluad Vaccine, Quadrivalent PFS IM Intramuscular 08/30/2022 Administered Fluarix Vaccine, Quadrivalent IM Intramuscular 08/24/2018 Administered Fluarix Vaccine, Quadrivalent IM Intramuscular 09/04/2021 Administered Flucelvax Vaccine, Quadrivalent PFS IM Intramuscular 08/08/2020 Administered Influenza Vaccine Unknown 08/19/2011 Administered Prevnar 20 (PCV20) IM Intramuscular 08/30/2022 Administere d Social History Social History Elder Abuse Suspicion Index Social Info Question Answer Notes EASI 1. Have you relied o n people for any of the following: bathing, dressing, shopping or meals? No 2. Has anyone prevented you from getting food, clothes, medications, glasses, hearing aids or medical care, or from being with people you wanted to be with? No 3. Have you been upset becau se someone talked to you in a way that made you feel shamed or threatened? No 4. Has anyone tried to force you to sign papers or to use your money against your will? No 5. Has anyone made you afrai d, touched you in ways that you did not want, or hurt you physically? No Bladder Control Assessment Social Info Question Answer Notes Questionnaire 1. In the past six m [facility], have you accidentally leaked urine? No Tobacco Control Assessment Social Info Question Answer Notes Questionnaire 1. Do you currently use any form or forms of tobacco or nicotine? No 2. Have you in the past used any form or forms of tobacco or nicotine? No 3. Have you been/are you cur rently exposed to second hand smoke? No Interpretation: Non-smoker/Never smo ked (less than 100 cigarettes during individual's lifetime) Physical Activity Assessment Social Info Question Answer Notes Physical Activity Assessment 1. How physically active are you? Not at all active Additional Details Category Social Info Options Details Migrated Social History Migrated Social History Former smoker : , Consumes alcohol : , No recent foreign travel : Problems Problem Type SNOMED Code ICD Code Onset Dates Problem Status W/U Status Risk Notes Problem Anemia (058107918) Anemia, unspecified (D64.9) 2018 Active confirmed - VERA Problem Non-thrombocytope toan purpura (883790008) Other nonthrombocytopen ic purpura (D69.2) 2020 Active confirmed Problem Type 2 diabetes mellitus with peripheral angiopathy (942567746) Type 2 diabetes mellitus with diabetic peripheral angiopathy without gangrene (E11.51) 2018 Active confirmed Problem Type 2 diabetes mellitus with other specified complication (E11.69) 2018 Active confirmed DM + HLD Problem Essential tremor (878720287) Essential tremor (G25.0) 2018 Active confirmed Problem Myasthenia gravis without exacerbation (93291514394483) Myasthenia gravis without (acute) exacerbation (G70.00) 2019 Active confirmed -Positive acetylcholine receptor binding antibodies, acetylcholine receptor blocking antibodies, acetylcholine receptor modulating antibodies and antis triation antibodies in July 2020 Problem 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 Problem Stricture of artery (62692714) Stricture of artery (I77.1) 2018 Active confirmed -chest xr done on 07/21/16 Problem History of artificial joint (120516864) Presence of left artificial hip joint (Z96.642) 2020 Active confirmed [id number]/ 10/2021, IMPRESSION: 12/27/2020 By: Unique Mckeon - -Uneventful surgery -Continue aspirin twice daily for DVT prophylaxis -Continue oxycodone until finished -Continue therapy at home -Follow-up scheduled with the orthopedics in 5 days . Problem Vitamin D deficiency (54234754) Vitamin D deficiency (E55.9) Active confirmed Problem Hyperglycemia due to type 2 diabetes mellitus (765232585876285) Type 2 diabetes mellitus with hyperglycemia (E11.65) 2022 Active confirmed Problem Mixed hyperlipidemia (780316410) Mixed hyperlipidemia (E78.2) 2018 Active confirmed Problem Hypertensive heart disease (57671455) Hypertensive heart disease (I11.9) Active confirmed Problem Benign prostatic hypertrophy without outflow obstruction (490634607) Benign prostatic hyperplasia without lower urinary tract symptoms (N40.0) 2018 Active confirmed Problem Anxiety disorder (254295428) Anxiety disorder, unspecified (F41.9) 2023 Active confirmed Problem 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 Problem Supraventricular tachycardia (disorder) (6601249) Supraventricular tachycardia, unspecified (I47.10) 2022 Active confirmed Vital Signs Temperature 98.2 degrees Fahrenheit 02/08/2025 Respiratory Rate 15 /min 02/08/2025 Oximetry 98 % 02/08/2025 Blood pressure diastolic 87 mm Hg 02/08/2025 Height 67 in 02/08/2025 Blood pressure systolic 139 mm Hg 02/08/2025 Weight 148.0 lbs 02/08/2025 BMI 23.18 kg/m2 02/08/2025 Encounters Encounter Location Date Provider Diagnosis [facility] [address] [place], [place] [phone] 06/23/2024 Unique Linda [facility] [address] [place], [place] [id number] 06/23/2024 Unique Linda Essential (primary) hypertension I10 ; Type 2 diabetes mellitus with other specified complication E11.69 and Anemia, unspecified D64.9 [facility] [address] [place], [place] [phone] 06/23/2024 Unique Linda [facility] [address] [place], [place] [phone] 06/24/2024 Unique Linda [facility] [address] [place], [place] [phone] 07/08/2024 Unique Linda [facility] [address] [place], [place] [phone] 07/14/2024 Unique Linda [facility] [place] [facility] [address] [place], [place] [phone] 08/29/2024 Unique Linda [facility] [address] [place], [place] [id number] 10/10/2024 Unique Lidna Essential (primary) hypertension I10 ; Type 2 diabetes mellitus with other specified complication E11.69 and 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 [facility] [address] [place], [place] [id number] 10/03/2024 Unique Linda Myasthenia gravis wi thout (acute) exacerbation G70.00 ; Type 2 diabetes mellitus with other specified complication E11.69 ; Hyperlipidemia, unspecified E78.5 and Essential (primary) hypertension I10 [facility] [address] [place], [place] [id number] 01/10/2025 Unique Linda Type 2 diabetes jarrod itus with other specified complication E11.69 ; Other nonthrombocytopenic purpura D69.2 ; Anemia, unspecified D64.9 ; Myasthenia gravis without (acute) exacerbation G70.00 ; Mixed hyperlipidemia E78.2 ; Type 2 diabetes mellitus with hyperglycemia E11.65 ; Iron deficiency anemia, unspecified iron deficiency anemia type D50.9 and Hypertensive heart disease I11.9 [facility] [address] [place], [place] [id number] 10/12/2024 Unique Linda [facility] [address] [place], [place] [id number] 12/28/2024 Unique Linda [facility] [address] [place], [place] [id number] 01/02/2025 Unique Linda [facility] [address] [place], [place] [id number] 01/04/2025 Unique Linda [facility] [address] [place], [place] [id number] 01/05/2025 Unique Jaimesr Encounter for genera l adult medical examination with abnormal findings Z00.01 ; Hospital discharge follow-up Z09 ; Type 2 diabetes mellitus with other specified complication E11.69 ; 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 ; Other nonthrombocytopenic purpura D69.2 ; Type 2 diabetes mellitus with diabetic peripheral angiopathy without gangrene E11.51 ; Essential tremor G25.0 ; Myasthenia gravis without (acute) exacerbation G70.00 ; Unspecified atherosclerosis of [place] arteries of extremities, right leg I70.201 ; Stricture of artery I77.1 ; Type 2 diabetes mellitus with hyperglycemia E11.65 ; Mixed hyperlipidemia E78.2 ; Supraventricular tachycardia, unspecified I47.10 ; Brain atrophy G31.9 and Hypertensive heart disease I11.9 [facility] [address] [place], [place] [id number] 01/04/2025 Unique Linda [facility] [address] [place], [place] [id number] 01/05/2025 [facility] [address] [place], [place] [id number] 01/06/2025 Unique Linda [facility] [address] [place], [place] [id number] 01/09/2025 Unique Linda Type 2 diabetes jarrod itus with other specified complication E11.69 ; Other nonthrombocytopenic purpura D69.2 ; Anemia, unspecified D64.9 ; Myasthenia gravis without (acute) exacerbation G70.00 ; Mixed hyperlipidemia E78.2 ; Type 2 diabetes mellitus with hyperglycemia E11.65 ; Iron deficiency anemia, unspecified iron deficiency anemia type D50.9 and Hypertensive heart disease I11.9 [facility] [address] [place], [place] [id number] 01/12/2025 Unique Linda [facility] [address] [place], [place] [id number] 01/12/2025 Unique Linda Swelling of right ortega nd M79.89 [facility] [place] [facility] [address] [place], [place] [id number] 01/20/2025 Unique Linda [facility] [address] [place], [place] [id number] 01/13/2025 Unique Linda [facility] [address] [place], [place] [id number] 01/17/2025 Unique Linda Vitamin D deficiency E55.9 ; Encounter for general adult medical examination with abnormal findings Z00.01 ; Hypertensive heart disease I11.9 and Type 2 diabetes mellitus with hyperglycemia E11.65 [facility] [address] [place], [place] [id number] 01/25/2025 Unique Linda [facility] [address] [place], [place] [id number] 02/08/2025 Unique Linda Hypertensive heart d isease I11.9 and Type 2 diabetes mellitus with hyperglycemia E11.65 [facility] [address] [place], [place] [id number] 03/30/2025 Unique Linda Assessments Encounter Date Diagnosis (ICD Code) Assessment Notes Treatment Notes Treatment Clinical Notes Section Notes 01/05/2025 Encounter for genera l adult medical examination with abnormal findings (ICD-10 - Z00.01) -Age and gender appropriate screening/immunizatio ns discussed. -Meds updated and reconciled. 01/05/2025 Hospital discharge follow-up (ICD-10 - Z09) Records reviewed. Meds updated and reconciled. f/u in 1 month. 01/09/2025 Type 2 diabetes mellitus with other specified complication (ICD-10 - E11.69) 06/23/2024 Type 2 diabetes mellitus with other specified complication (ICD-10 - E11.69) check labs today not taking ozempic - further recs based on A1c results pharmacy on board 06/23/2024 Essential (primary) hypertension (ICD-10 - I10) Maintain blood pressure at a goal of <140/90 and monitor blood pressure as directed. Write down these numbers for review during your next appointmen t. Continue with current treatment. Follow a low sodium diet. Exercise as tolerated and avoid stress. 10/03/2024 Type 2 diabetes mellitus with other specified complication (ICD-10 - E11.69) 10/03/2024 Myasthenia gravis without (acute) exacerbation (ICD-10 - G70.00) 01/10/2025 Type 2 diabetes mellitus with other specified complication (ICD-10 - E11.69) 01/10/2025 Other nonthrombocytopenic purpura (ICD-10 - D69.2) 01/12/2025 Swelling of right hand (ICD-10 - M79.89) 01/17/2025 Encounter for genera l adult medical examination with abnormal findings (ICD-10 - Z00.01) 01/17/2025 Vitamin D deficiency (ICD-10 - E55.9) 10/10/2024 Type 2 diabetes mellitus with other specified complication (ICD-10 - E11.69) poorly controlled increase ozempic to 1mg/week with PAP increase glipizide to 10 mg BID (5 mg dose sent to [facility] to add to the 5 mg dose in blister packs) pharmacy on board 10/10/2024 Essential (primary) hypertension (ICD-10 - I10) Maintain blood pressure at a goal of <140/90 and monitor blood pressure as directed. Write down these numbers for review during your next appointmen t. Continue with current treatment. Follow a low sodium diet. Exercise as tolerated and avoid stress. 02/08/2025 Hypertensive heart disease (ICD-10 - I11.9) Maintain blood pressure at a goal of <140/90 and monitor blood pressure as directed. Write down these numbers for review during your next appointment. Continue with current treatment. Follow a low sodium diet. Exercise as tolerated and avoid stress. 02/08/2025 Type 2 diabetes mellitus with hyperglycemia (ICD-10 - E11.65) continue current treatment improved BG readings. 10/10/2024 Immunodeficiency due to conditions classified elsewhere (ICD-10 - D84.81) secondary to poorly controlled DM. continue to monitor 01/10/2025 Anemia, unspecified (ICD-10 - D64.9) 10/03/2024 Hyperlipidemia, unspecified (ICD-10 - E78.5) 06/23/2024 Anemia, unspecified (ICD-10 - D64.9) VERA in the past check labs 01/09/2025 Other nonthrombocytopenic purpura (ICD-10 - D69.2) 01/05/2025 Type 2 diabetes mellitus with other specified complication (ICD-10 - E11.69) poorly controlled increase ozempic to 2 mg/week with PAP continue lantus 45 units qHS needs to maintain a home BG log and bring it to the next [facility] pharmacy team on board 01/05/2025 Immunodeficiency due to conditions classified elsewhere (ICD-10 - D84.81) secondary to poorly controlled DM. continue to monitor 01/09/2025 Anemia, unspecified (ICD-10 - D64.9) 10/03/2024 Essential (primary) hypertension (ICD-10 - I10) 01/10/2025 Myasthenia gravis without (acute) exacerbation (ICD-10 - G70.00) 01/17/2025 Hypertensive heart disease (ICD-10 - I11.9) Maintain blood pressure at a goal of <140/90 and monitor blood pressure as directed. Write down these numbers for review during your next appointment. Continue with current treatment. Follow a low sodium diet. Exercise as tolerated and avoid stress. 01/17/2025 Type 2 diabetes mellitus with hyperglycemia (ICD-10 - E11.65) continue current treatment improved BG readings. 01/10/2025 Mixed hyperlipidemia (ICD-10 - E78.2) 01/09/2025 Myasthenia gravis without (acute) exacerbation (ICD-10 - G70.00) 01/05/2025 Other nonthrombocytopenic purpura (ICD-10 - D69.2) Reassurance. Avoid skin trauma. Prevent falls. Recommend using sunscreen and sun protective hats/clothing when outdoors. 01/05/2025 Type 2 diabetes mellitus with diabetic peripheral angiopathy without gangrene (ICD-10 - E11.51) plan under DM 01/09/2025 Mixed hyperlipidemia (ICD-10 - E78.2) 01/10/2025 Type 2 diabetes mellitus with hyperglycemia (ICD-10 - E11.65) 01/10/2025 Iron deficiency anemia, unspecified iron deficiency anemia type (ICD-10 - D50.9) 01/09/2025 Type 2 diabetes mellitus with hyperglycemia (ICD-10 - E11.65) 01/05/2025 Essential tremor (ICD-10 - G25.0) continue to monitor 01/05/2025 Myasthenia gravis without (acute) exacerbation (ICD-10 - G70.00) -Positive acetylcholine receptor binding antibodies, acetylcholine receptor blocking antibodies, acetylcholine receptor modulating antibodies and antis triation antibodies in July 2020 has been off pyridostigmine on his own doing okay continue to monitor 01/09/2025 Iron deficiency anemia, unspecified iron deficiency anemia type (ICD-10 - D50.9) 01/10/2025 Hypertensive heart disease (ICD-10 - I11.9) 01/09/2025 Hypertensive heart disease (ICD-10 - I11.9) 01/05/2025 Unspecified atherosclerosis of [place] arteries of extremities, right leg (ICD-10 - I70.201) HIP X RAY ON 07/01/16. asymptomatic continue to monitor 01/05/2025 Stricture of artery (ICD-10 - I77.1) -chest xr done on 07/21/16 -risk factors well controlled-continue to monitor 01/05/2025 Type 2 diabetes mellitus with hyperglycemia (ICD-10 - E11.65) plan under DM 01/05/2025 Mixed hyperlipidemia (ICD-10 - E78.2) Lipid panel at goal. Recommend a low fat diet and regular exercise as tolerated. No changes in treatment. Will continue to follow. 01/05/2025 Supraventricular tachycardia, unspecified (ICD-10 - I47.10) Currently asymptomaticContinue to monitorContinue beta-blockers 01/05/2025 Brain atrophy (ICD-1 0 - G31.9) noted in MRI brain Nov 2023 AsymptomaticContinue to monitor 01/05/2025 Hypertensive heart disease (ICD-10 - I11.9) BP elevatedMaintain home BP log and bring it to the next office visit Plan Of Treatment No Information Insurance Providers Payer Name Payer Address Payer Phone Subscriber Number Group Number Insured Name Patient Relationship to Insured Coverage Start Date Coverage End Date [id number] [employer] [address] [address] [place], [place] [id number] Demario Kevin Self - patient is the insured Medications Administered Medication Instructions Date of Administration Dosage Notes 0.9% Sodium Chloride 02/04/2019 500 mL 0.9% Sodium Chloride 02/18/2019 1000 mL 0.9% Sodium Chloride 04/30/2021 1000 mL Cyanocobalamin B12, 1000mcg/1mL 12/10/2023 1 mL Cyanocobalamin B12, 1000mcg/1mL 12/17/2023 1 mL Dexamethasone Sodium Phosphate, 4mg 10/14/2019 4 mg Dexamethasone Sodium Phospha te, 4mg/1mL 01/12/2025 4 mg Ketorolac Tromethamine 10/14/2019 30 mg Ketorolac Tromethamine 05/28/2023 30 mg Ketorolac Tromethamine 12/15/2023 30 mg Lactated Ringers, 1000mL (Hi gh Alert) 01/26/2023 1000 mL Lactated Ringers, 1000mL (Mi gh Alert) 05/28/2023 500 mL Lactated Ringers, 1000mL (Mi gh Alert) 11/25/2023 1000 mL Lactated Ringers, 1000mL (Mi gh Alert) 02/09/2024 1000 mL Methylprednisolone Acetate, 40mg 09/03/2021 40 mg Methylprednisolone Sodium Succinate, up to 125mg 04/29/2021 125 mg Methylprednisolone Sodium Succinate, up to 125mg 07/23/2021 125 mg Methylprednisolone Sodium Succinate, up to 125mg 12/15/2023 125 mg Novolog, per 5 units 02/18/2019 5 units Sodium Chloride Flush 0.9%, 10mL 04/29/2021 100 0 mL Toradol, 30mg/1mL 01/12/2025 30 mg Medical (General) History Medical History History ICD Code Hip pain, History of arthritis, History of sore throat, History of varicella, Thrush, Type 2 diabetes mellitus with other kidn ey complication, Surgical History Surgery Date(Month/Year) Hip surgery
--- OUTSIDE RECORDS SUMMARY | 2025-06-08 10:28 | XMS_ITS | Patient Health Record ---
Author Organization [facility] Address [address] [place] [address] Care Team Providers Care Emergency Department Technician Name Role Phone Unique Mckeon Primary Care Provider Catie Hernadez Unavailable [phone] Allergies Allergen (clinical drug ingredient) Drug/Non Drug Allergy documented on EMR Reaction Allergy Type Onset Date Status angiotensin-converting enzyme inhibitor (FN) ALFONZO Inhibitors Unknown Drug Allergy Acti ve Reason For Referral No Information Medications Medication SIG (Take, Route, Frequency, Duration) Notes Start Date End Date Status Triamcinolone Acetonide 0.1 % 1 application Externally Two times a Week Active Pantoprazole Sodium 40 MG 1 tablet Orall y Once a day; Duration: 90 days 03/13/2022 Active Glimepiride 4 MG 1 tablet with breakf ast or the first main meal of the day Orally Once a day Active Acetaminophen 500 MG 1 tablet as needed Orally every 6 hrs Active Metoprolol ER 25 MG QD Active pyRIDostigmine [place] 60 MG 1 tablet Orally every 4 hrs; Duration: 30 day(s) Active Tamsulosin HCl 0.4 MG 1 capsule Orally O nce a day; Duration: 30 day(s) Active Tresiba FlexTouch 200 UNIT/ML as directed Subcutaneous Act gabriel amLODIPine Besylate 5 MG 1 tablet Orally Once a day; Duration: 30 day(s) Active Aspir-Low 81 MG 1 tablet Orally Once a day; Duration: 30 day(s) Active Januvia 100 MG 1 tablet Orally Once a day; Duration: 30 day(s) Active metFORMIN HCl 1000 MG 1 tablet with a me al Orally twice a day Active Problems Problem Type SNOMED Code ICD Code Onset Dates Problem Status W/U Status Risk Notes Problem Hemorrhage of rectum and anus (024721782) Hemorrhage of anus and rectum (K62.5) Active confirmed Problem Dysphagia (90389267) Dysphagia (R13.10) Active confirmed Problem Gastroesophageal reflux disease (149008681) Gastro esophageal reflux disease (K21.9) Active confirmed Plan Of Treatment No Information Insurance Providers Payer Name Payer Address Payer Phone Subscriber Number Group Number Insured Name Patient Relationship to Insured Coverage Start Date Coverage End Date [facility] [address] [address] [place] [address] [phone] [id number] Demario Kevin Self - patient is the insured MEDICAID [address] [place] [address] [phone] [id number] Demario Kevin Self - patient is the insured Medical (General) History Medical History History ICD Code hyperlipidemia hypertension benign prostatic hyperplasia (BPH) cardiomyopathy Heart Disease SVT type II diabetes Surgical History Surgery Date(Month/Year) hip surgery
--- OUTSIDE RECORDS SUMMARY | 2025-06-08 10:28 | XMS_ITS | Patient Health Record ---
Author Organization [facility] Address [address] [address] Phone [phone] Care Team Providers Care Bariatric Surgeon Name Role Phone Nolberto Cook Primary Care Provider [phone] Allergies Allergen (clinical drug ingredient) Drug/Non Drug Allergy documented on EMR Reaction Allergy Type Onset Date Status metformin Metformin HCl diarrhea Drug Allergy Act gabriel Reason For Referral No Information Medications Medication SIG (Take, Route, Frequency, Duration) Notes Start Date End Date Status Terazosin HCl 5 MG TAKE ONE CAPSULE BY MOUTH EVERY DAY; Duration: 90 Active Calcium + D 315-200 MG-UNIT 1 tablet with meals Orally Twice a day 04/06/2014 Active Clotrimazole-Betamethasone 1-0.05 % 1 application to affected area Externally Twice a day 01/10/2013 Active Meclizine HCl 25 MG 1 tablet as needed O rally Once a day; Duration: 30 day(s) 08/29/2015 Active Gabapentin 100 MG 1 capsule Orally bedtime 010 Active Lovastatin 20 MG 1 tablet with a meal Orally Once a day 01/26/2014 Active Vitamin D3 1000 UNIT 1 tablet Orally Once a day Active Oseni 25-15 MG take 1 tablet by julia th every day Orally Once a day 07/14/2014 Active Aspir-81 81 MG 1 tablet Orally Once a day 01/19/20 12 Active Loratadine 10 MG 1 tablet Orally Once a day 2011 Active Lisinopril 2.5 MG TAKE 1 TABLET BY JULIA TH EVERY DAY 08/15/2011 Active Glimepiride 4 MG TAKE 1 TABLET BY JULIA TH EVERY DAY WITH THE FIRST MAIN MEAL OF THE DAY 08/15/2011 Active Social History Tobacco use other than smoking: Question Answer Notes Are you an other tobacco user? No Section Notes: Quit [id number]. Quit [id number]. Quit [email or web address]. Quit [id number]. Quit [id number]. Quit [id number]. Quit [email or web address]. Quit [id number]. Quit [id number]. Quit [email or web address]. Problems Problem Type SNOMED Code ICD Code Onset Dates Problem Status W/U Status Risk Notes Problem Neurologic disorder associated with type II diabetes mellitus (848527040) Diabetes with neurological manifestations, type II or unspecified type, not stated as uncontrolled (250.60) Active confirmed Problem Neurologic disorder associated with type II diabetes mellitus (947928343) Diabetes with neurological manifestations, type II or unspecified type, uncontrolled (250.62) Active confirmed Problem Diabetic polyneuropathy (98294045) Polyneuropathy in diabetes (357.2) Active confirmed Problem Peripheral vascular disease (801823300) Unspecified peripheral vascular disease (443.9) Active confirmed Problem 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) (19936223) Benign hypertensive heart disease without heart failure (402.10) Active confirmed Problem Atherosclerosis of [place] arteries of the extremities with intermittent claudication (440.21) Active confirmed Problem Venous varices (348299702) Asymptomatic varicose veins (454.9) Active confirmed Problem Synovial popliteal cyst (disorder) (3717627894) Synovial cyst of popliteal space (727.51) Active confirmed Problem Osteopetrosis (9915768) Osteopetrosis (756.52) Active confirmed Problem Insomnia (346173840) Insomnia, u nspecified (780.52) Active confirmed Problem Body mass index 25-2 9 - overweight (526027084) Body Mass Index 26.0-26.9, adult (V85.22) Active confirmed Problem Pure hypercholesterolemia (258293914) Pure hypercholesterolemia (E78.0) Active confirmed Problem Diabetic polyneuropathy (93307742) Polyneuropathy in diabetes (E11.42) Active confirmed Problem Benign paroxysmal positional vertigo (168843275) Benign paroxysmal positional vertigo (H81.10) Active confirmed Problem BMI 25-29 - overweight (984259310) Body mass index 27.0-27.9, adult (Z68.27) Active confirmed Problem Hypertensive retinopathy (6746521) Hypertensive retinopathy of both eyes (362.11) Active confirmed Problem Weakness (06931426) Weakness (R53.1) Active con firmed Problem Diabetic peripheral neuropathy associated with type 2 diabetes mellitus (4425188051302) Type 2 diabetes mellitus with diabetic neuropathy, unspecified (E11.40) Active confirmed Problem Insomnia (919660368) Insomnia, u nspecified (G47.00) Active confirmed Problem Hypertensive retinopathy (1229916) Hypertensive retinopathy, unspecified eye (H35.039) Active confirmed Problem 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 (00343747) Hypertensive heart disease without heart failure (I11.9) Active confirmed Problem Enlarged prostate (073119916) Enlarged prostate without lower urinary tract symptoms (N40.0) Active confirmed Problem Osteopetrosis (7643941) Osteopetrosis (Q78.2) Active confirmed Problem Body mass index 25-2 9 - overweight (987358554) Body mass index (BMI) 26.0-26.9, adult (Z68.26) Active confirmed Plan Of Treatment Pending Test Test Name Order Date Echocardiogram 08/29/2015 Hemoglobin A1c 08/29/2015 Hemoglobin A1c 06/26/2015 CBC, Platelet, No Differential 5 Microalb/Creat Ratio, Randm Urine 2014 Microalb/Creat Ratio, Randm Urine 2014 Lipid Panel 06/26/2015 Lipid Panel 08/29/2015 TSH reflex to T4F 08/29/2015 CMP14+eGFR 06/26/2015 CMP14+eGFR 08/29/2015 EKG 08/29/2015 Medical (General) History Medical History History ICD Code BPH diabetes type 2 chronic insomnia osteopetrosis osteoarthritis shoulder,hip;left knee-se anthony xray 05/25/15 diabetic peripheral neuropathy influenza vaccine 08/2013; 2013 @[facility] pneumovax in hospital 1994;2013 @[facility] Diabetes mellitus without me ntion of complication, type II or unspecified type, not stated as uncontrolled varicose veins legs 06/09/14 u/s Dr. alessia guerrero MD [facility]. surgeon catract; htn retinopathy, dry maculopath y 05/2015 DR. Kevin bravo DO report positional vertigo Surgical History Surgery Date(Month/Year) Right THR 1979 torn armond R knee 1969 colonoscopy: normal 2010
== END 2025-06-08 23:59 | disposition home or self-care (01) ==
PROVIDERS: PCP Internal Medicine; Visit Provider Nurse Practitioner Family
DX: I47.10 Supraventricular tachycardia, unspecified (principal); I48.91 Unspecified atrial fibrillation; M89.8X5 Other specified disorders of bone, thigh; M25.552 Pain in left hip; R22.42 Localized swelling, mass and lump, left lower limb; W19.XXXA Unspecified fall, initial encounter
CPT/HCPCS: 93225; 93227; 93971

== ENCOUNTER 2025-06-12 08:56 | Outpatient (CLI) | payer MEDICARE, SELFPAY ==
--- OUTSIDE RECORDS SUMMARY | 2021-10-30 08:15 | XMS_ITS | Continuity of Care Document ---
Author Organization [facility] Address [address] [facility] [address] [place] [address] Phone Care Team Providers Care Field Traffic Investigator Name Role Phone Jignesh Cowart MD Unavailable Unavaila ble Allergies, Adverse Reactions, Alerts Substance Reaction Status Criticality No Known Allergies Active No Inform ation Medications Medication Instructions Dosage Effective Dates (start - stop) Status Comments pyridostigmine bromide 60 mg tablet take 1 tablet by oral route 3 times every day 60 MG - Active metformin 1,000 mg tablet take 1 tablet by oral route 2 times every day with morning and evening meals 1000 MG - Active tamsulosin 0.4 mg capsule take 1 capsule by oral route every day 1/2 hour following the same meal each day 0.4 MG - Active glimepiride 4 mg tablet take 1 tablet by oral route 2 times every day 4 MG - Active Januvia 100 mg tablet take 1 tablet by o ral route every day 100 MG - Active aspirin 81 mg chewable tablet chew 1 (81MG) by oral route every day 81 MG - Active amlodipine 5 mg tablet take 1 tablet by oral route every day 5 MG - Active meloxicam 15 mg tablet take 1 tablet by oral route every day 15 MG - Active metoprolol succinate ER 25 mg tablet,extended release 24 hr take 0.5 tablet by oral route every day 12.5 MG - Active Tresiba FlexTouch U-200 insulin 200 unit/mL (3 mL) subcutaneous pen inject by subcutaneous route as per insulin protocol 0.00 - Active Procedures Procedure Date No Dec-22-2021 Blepharoplasty Upper Eyelid W Excessive Skin Dec-15-2021 ANESTH, EYELID FACILITY FACILITY Visual Field Gomez Visual Field Gomez No Offic/outpt E&m [facility] 45 Advance Directives Directive Yes / No Effective Date File Name No Information Encounters Encounter Description Practice Location Reason(s) For Visit Diagnoses Date Provider Providers Copied on Encounter [facility], [address], [place], [place], [address] [place] [address] , tel:[phone] [facility] Dermatochalasis of both upper eyelidsDermatoch alasis of left upper eyelid 1 [facility] [place]. [address], [address] [place] [address], . tel:[phone] Referring Provider: Jignesh Shields, [address], [address] [place] [address]. tel:[phone] [facility], [address] [place] [address], [address] [place] [address] , tel:[phone] [facility] No Information 1 [facility]. [address], [address] [place] [address], . tel:[phone] Referring Provider: Jignesh Shields, [address], [address] [place] [address]. tel:[phone] [facility] [address], [address] [place] [address] , tel:[phone] [facility] No Information 1 [facility]. [address], [address] [place] [address], . tel:[phone] Referring Provider: Jignesh Shields, [address], [place], [address] [place] [address]. tel:[phone] [facility], [address] , [place], [address] [place] [address] , tel:[phone] [facility] No Information 1 Lesly Hernandez. [address] [facility] [address] , [place], [address] [place] [address], . tel:[phone] [facility], [address], [place], [id number] , tel:[phone] [facility] Dermatochalasis of both upper eyelidsDermatoch alasis of left upper eyelid 1 [place]. [address], [place], [address] [place] [address], . tel:[phone] Referring Provider: Jignesh Shields, [address] [facility], [place], [address] [place] [address]. [phone] [facility], [address] [facility], [place], [address] [place] [address] , tel:[phone] [facility] Dermatochalasis of left upper eyelidDermatocha lasis of both upper eyelids 1 [facility] [place]. [address], [place], [address] [place] [address], . tel:[phone] Referring Provider: Jignesh Shields, [address] [facility] , [place], [address] [place] [address]. tel:[phone] Offic/outpt E&m [place] 45 [facility], [address] , [place], [address] [place] [address] , tel:[phone] [facility] Dermatochalasis of both upper eyelidsDermatoch alasis of left upper eyelid 1 [facility] [place]. [address], [place], [place], [id number], . tel:[phone] Referring Provider: Bernie Mabry , [address] [place] [address], [address]. tel:[phone] Family History Family Member Type Diagnosis Age At Onset No Information Payers Payer name Insurance type Covered libertarian ID Authoriza tisadia(s) [employer] Dual Medicare CI [id number] Social History Type Description Quantity Date Captured Comments Sex Male Smoking Status No Information Chief Complaint And Reason For Visit No Information Reason For Referral Reason For Referral No Information History Of Present Illness Encounter Date Complaint History Of Prese nt Illness No Information Functional Status Date Functional Assessmen t No Information Instructions Date Instruction Additional Infor mation No Information Assessments Type Assessment Date assessment Dermatochalasis of both upper ey elids assessment Dermatochalasis of left upper ey elid Patient Care Teams Name Effective Dates (start - stop) Status Members No Information
--- OUTSIDE RECORDS SUMMARY | 2025-04-10 21:15 | XMS_ITS ---
Author Organization [employer] Address [address] [place] [address] Care Team Providers Care Wheel Polisher Name Role Phone Unique Mckeon Primary Care Provider REASON FOR VISIT Lab Encounters Encounter Location Date Provider Diagnosis [facility] [address] [place], [place] [phone] 04/11/2025 Unique Mckeon Plan Of Treatment No Information Progress Notes * Demario KEVIN SDOB: (85 yo M)Acc No.[id number]:04/11/2025 UNLOCKED PROGRESS NOTE Patient: Cornelius gonzalezDemario quick Provider: Madeleine Mckeon :1940 A ge:84 Y S ex:Male Date:04/11/2025 Address:[address] [place] [address], [address] [place], [place] [id number] Subjective: * Chief Complaints: * L ab [...] Electronic signature of Murali Mckeon MD on 06/12/2025 at 09:02 AM EDT Sign off status: Pending * Provider: Madeleine Mckeon Date: 04/11/2025 Generated for Marii tong/Julian/Maribel on: 06/12/2025 09:02 AM EDT
--- OUTSIDE RECORDS SUMMARY | 2025-04-11 09:15 | XMS_ITS ---
Author Organization [employer] Address [address] [place] [address] Care Team Providers Care Supervisor Turkey Farm Name Role Phone Unique Mckeon Primary Care Provider REASON FOR VISIT Lab Encounters Encounter Location Date Provider Diagnosis [facility] [address] [place], [place] [phone] 04/11/2025 Unique Mckeon Plan Of Treatment No Information Progress Notes * Demario KEVIN SDOB: (85 yo M)Acc No.[id number]:04/11/2025 UNLOCKED PROGRESS NOTE Patient: Cornelius gonzalezDemario quick Provider: Madeleine Mckeon :1940 A ge:84 Y S ex:Male Date:04/11/2025 Address:[address] [place] [address], [address] [place], [place] [id number] Subjective: * Chief Complaints: * L ab [...] of Murali Mckeon MD on 06/12/2025 at 09:03 AM EDT Sign off status: Pending * Provider: Madeleine Mckeon Date: 04/11/2025 Generated for Marii tong/Julian/Maribel on: 06/12/2025 09:03 AM EDT
--- OUTSIDE RECORDS SUMMARY | 2025-04-19 10:20 | XMS_ITS ---
Author Organization [employer] Address [address] [place] [address] Care Team Providers Care News Copy Editor Name Role Phone Unique Mckeon Primary Care Provider [phone] REASON FOR VISIT routine visit Encounters Encounter Location Date Provider Diagnosis [facility] [address] [place], [place] [phone] 04/19/2025 Unique Mckeon Plan Of Treatment No Information Progress Notes * Demario KEVIN SDOB: (85 yo M)Acc No.[id number]:04/19/2025 UNLOCKED PROGRESS NOTE Progress Notes Patient: Cornelius villeda Demario [place] Provider: Madeleine Mckeon :1940 A ge:84 Y S ex:Male Date:04/19/2025 Address:[address] [place] [address], [address] [place], [place] [id number] Subjective: * Chief Complaints: * R outine [...] 0 04/19/2025 Generated for Marii tong/Julian/Maribel on: 06/12/2025 09:03 AM EDT
--- OUTSIDE RECORDS SUMMARY | 2025-06-12 09:02 | XMS_ITS | Patient Health Record ---
Author Organization [email or web address] Address [address] [place] [address] Care Team Providers Care Cage Clerk Name Role Phone Linda Unique Primary Care Provider Allergies Allergen (clinical drug ingredient) Drug/Non Drug Allergy documented on EMR Reaction Allergy Type Onset Date Status angiotensin-converting enzyme inhibitor (FN) ALFONZO Inhibitors Angioedema Drug Allergy 05/06/2021 Acti ve Results Component Value Reference Range Flag Notes Vitamin D, 25-Hydroxy Reviewed date:01/12/2025 07:43:52 AM Interpretation: Performing Lab:[facility], [address] [place] [id number], Phone - [phone], Director - Sameer Notes/Report: Vitamin D, 25-Hydroxy 26.6 30.0-100.0 ng/mL L Vitamin B12 and Folate Reviewed date:01/12/2025 07:43:51 AM Interpretation: Performing Lab:[facility], [facility] [place] [id number], Phone - [phone], Director - Sameer Notes/Report: Vitamin B12 767 276-1409 pg/mL Folate (Folic Acid), Serum 16.2 >3.0 ng/mL considered to represent clinical deficiency. A serum folate concentration of less than 3.1 ng/mL is TSH Reviewed date:01/12/2025 07:43:52 AM Interpretation: Performing Lab:[facility] [place], [facility] [place] [id number], Phone - [phone], Director - Sameer Notes/Report: TSH 4.650 0.450-4.500 uIU/mL H Microalb/Creat Ratio, Randm Ur Reviewed date:01/12/2025 07:43:52 AM Interpretation: Performing Lab:[address] [id number], Phone - [phone], Director - MDFarrier Notes/Report: Creatinine, Urine 89.2 Not Estab. mg/dL Albumin, Urine 38.8 Not Estab. ug/mL Alb/Creat Ratio 43 0-29 mg/g creat H Severely increased: >300 Normal: 0 - 29 Moderately increased: 30 - 300 Lipid Panel Reviewed date:01/12/2025 07:43:52 AM Interpretation: Performing Lab:[address] [id number], Phone - [phone], Director - MDFarrier Notes/Report: Cholesterol, Total 123 100-199 mg/dL Triglycerides 55 0-149 mg/dL HDL Cholesterol 65 >39 mg/dL VLDL Cholesterol Miguel 12 5-40 mg/dL LDL Chol Calc ([facility]) 46 0-99 mg/dL Hemoglobin A1C Reviewed date:01/12/2025 07:43:51 AM Interpretation: Performing Lab:[address] [id number], Phone - [phone], Director - MDFarrier Notes/Report: Hemoglobin A1c 11.7 4.8-5.6 % H . Prediabetes: 5.7 - 6.4 Diabetes: >6.4 Glycemic control for adults with diabetes: <7.0 Comprehensive Metabolic Pane l 14 ([facility]) Reviewed date:01/12/2025 07:43:52 AM Interpretation: Performing Lab:[address] [id number], Phone - [phone], Director - MDFarrier Notes/Report: Glucose 67 70-99 mg/dL L BUN [...] 0-40 IU/L ALT (SGPT) 13 0-44 IU/L Elder Abuse Suspicion Index (EASI) Reviewed date:01/05/2025 12:49:51 PM Interpretation: Performing Lab: Notes/Report: DEPRESSION SCREENING Reviewed date:01/05/2025 12:48:06 PM Interpretation: Performing Lab: Notes/Report: MEDICATION REVIEW Reviewed date:01/05/2025 12:49:02 PM Interpretation: Performing Lab: Notes/Report: Advance Directive Reviewed date:01/05/2025 12:48:17 PM Interpretation: Performing Lab: Notes/Report: BLADDER CONTROL ASSESSMENT Reviewed date:01/05/2025 12:49:25 PM Interpretation: Performing Lab: Notes/Report: MONITORING/COUNSELING PHYSIC AL ACTIVITY Reviewed date:01/05/2025 12:48:29 PM Interpretation: Performing Lab: Notes/Report: FALL RISK ASSESSMENT Reviewed date:01/05/2025 12:48:39 PM Interpretation: Performing Lab: Notes/Report: Pain Screening - No Pain Pre sent Reviewed date:01/05/2025 12:49:35 PM Interpretation: Performing Lab: Notes/Report: TOBACCO SCREENING Reviewed date:01/05/2025 12:49:15 PM Interpretation: Performing Lab: Notes/Report: FUNCTIONAL STATUS ASSESSMENT Reviewed date:01/05/2025 12:48:52 PM Interpretation: Performing Lab: Notes/Report: CBC/D/Plt Reviewed date:01/12/2025 07:43:52 AM Interpretation: Performing Lab:[facility] [address] [id number], Phone - [phone], Director - Sameer Notes/Report: WBC 10.3 3.4-10.8 [...] Immature Grans (Abs) 0.0 0.0-0.1 x10E3/uL TSH reflex to T4 Reviewed date:10/10/2024 09:43:11 AM Interpretation: Performing Lab:[facility], [address] [place] [id number], Phone - [phone], Director - Sameer Notes/Report: TSH 2.300 0.450-4.500 uIU/mL Lipid Panel With LDL/HDL Rat io Reviewed date:10/10/2024 09:43:11 AM Interpretation: Performing Lab:[facility] [address] [id number], Phone - [phone], Director - Sameer Notes/Report: Cholesterol, Total 138 100-199 mg/dL Triglycerides 163 0-149 mg/dL H HDL Cholesterol 47 >39 mg/dL VLDL Cholesterol Miguel 28 5-40 mg/dL LDL Chol Calc ([facility]) 63 0-99 mg/dL LDL/HDL Ratio 1.3 0.0-3.6 ratio Avg.Risk 3.6 3.2 LDL/HDL Ratio 2X Avg.Risk 6.2 5.0 1/2 Avg.Risk 1.0 1.5 Men Women 3X Avg.Risk 8.0 6.1 Comprehensive Metabolic Pane l 14 (CMP) Reviewed date:10/10/2024 09:43:11 AM Interpretation: Performing Lab:[facility] [address] [id number], Phone - [phone], Director - Sameer Notes/Report: Glucose 454 70-99 [...] 0-40 IU/L ALT (SGPT) 13 0-44 IU/L CBC with Diff, Platelet, NLR Reviewed date:10/10/2024 09:43:11 AM Interpretation: Performing Lab:[facility] [address] [id number], Phone - [phone], Director - Sameer Notes/Report: WBC 7.8 3.4-10.8 x10E3/uL Effective October 10, 2024 profile [id number] WBC will be made non-orderable as a [...] 0.7-3.1 x10E3/uL Neut/Lymph Ratio 2.5 0.0-2.9 ratio Low likelihood of severe COVID-19 High likelihood of severe COVID-19 disease progression >4.9 disease progression 0.0-2.9 Published COVID-19 studies suggest: Monocytes(Absolute) 0.6 0.1-0.9 x10E3/uL Eos (Absolute) 0.2 0.0-0.4 x10E3/uL Baso (Absolute) 0.0 0.0-0.2 x10E3/uL Immature Granulocytes 1 Not Estab. % Immature Grans (Abs) 0.0 0.0-0.1 x10E3/uL Written Authorization Reviewed date:07/08/2024 08:21:57 AM Interpretation: Performing Lab:[facility] [id number], Phone - [phone], Director - Sameer Notes/Report: Written Authorization Logged by Freya Candelario Authorization received from [employer] 06-30-2024 Written Authorization Received. Hemoglobin A1C Reviewed date:07/08/2024 08:21:57 AM Interpretation: Performing Lab:[employer] [address] [id number], Phone - [phone], - Sameer Notes/Report: Hemoglobin A1c 12.4 4.8-5.6 % H . Diabetes: >6.4 Glycemic control for adults with diabetes: <7.0 Prediabetes: 5.7 - 6.4 TSH Reviewed date:06/27/2024 03:34:00 PM Interpretation: Performing Lab:[employer] [address] [id number], Phone - [phone], Director - Sameer Notes/Report: TSH 2.500 0.450-4.500 uIU/mL Lipid Panel Reviewed date:06/27/2024 03:34:00 PM Interpretation: Performing Lab:[facility] [address] [id number], Phone - [phone], Director - Sameer Notes/Report: Cholesterol, Total 156 100-199 mg/dL Triglycerides 180 0-149 mg/dL H HDL Cholesterol 51 >39 mg/dL VLDL Cholesterol Miguel 30 5-40 mg/dL LDL Chol Calc ([facility]) 75 0-99 mg/dL CMP14 Reviewed date:06/27/2024 03:34:00 PM Interpretation: Performing Lab:[facility] [id number], Phone - [phone], Director - MDMatheus Notes/Report: Glucose 440 70-99 mg/dL H BUN [...] CBC/D/Plt Reviewed date:06/27/2024 03:34:01 PM Interpretation: Performing Lab:[facility] [id number], Phone - [phone], Director - MDMatheus Notes/Report: WBC 6.8 3.4-10.8 x10E3/uL RBC 4.70 [...] Grans (Abs) 0.0 0.0-0.1 x10E3/uL Vitamin B12 661 624-7208 pg/mL Folate (Folic Acid), Serum 10.2 >3.0 ng/mL A serum folate concentration of less than 3.1 ng/mL is considered to represent clinical deficiency. Ferritin 45 30-400 ng/mL Reticulocyte Count 1.8 0.6-2.6 % Iron Bind.Cap.(TIBC) 272 250-450 ug/dL UIBC 224 111-343 ug/dL Iron 48 38-169 ug/dL Iron Saturation 18 15-55 % A1c w/GlycoMark(R) Reflex Reviewed date:10/10/2024 09:43:11 AM Interpretation: Performing [facility], [address] [place] [id number], Phone - [phone], Director - Sameer Notes/Report: Hb A1c Diabetic Assessment 13.3 H Increased risk for diabetes: Note: A reflex test was ordered on this specimen. If A1c results are between a value of 6.0 to 8.0 (including 6.0 and post prandial glucose spikes from the past 2 weeks, where as Ongoing Hyperglycemia: >6.4 A1c reflects average glycemic control over the past 3 Glycemic control for adults with diabetes: <7.0 (ADA) 5.7 - 6.4 months. Reference Range: 8.0), GlycoMark testing is performed. GlycoMark reflects Normal: <5.7 Estimated Average Glucose 335 GlycoMark(R)(1,5 AG) TNP Testing Not Indicated GlycoMark(TM) is intended for use with managing glycemic high glucose peaks. 1, 5-AG blood levels can be affected by clinical conditions [facility] website test menu for detailed list of limitations. or medications. Please refer to the directory of services or control in diabetic patients. A low result corresponds to Reason For Referral Reason Follow Up Urology DO S 09/06/24 Diagnosis 1 Phimosis (N47.1) [facility]erring [facility] First Name Unique Referring Provider Last Name Linda Referring Provider Speciality Internal edicine Referred Provider Altaf Jimenez Referred Provider Specialty Urology Procedure 1 Established - Detail ed (99365) Procedure 2 Urinalysis (w/o micr o Auto) (15050) General Notes Taylor Adan 12/16 03:10:12 PM >has not been seen since 03/08/24 Clinical Notes Ana Maria Davis 2023 01:29:15 PM >CM reviewed background information and deems this referral as approved.Linda Anika 09/05/2024 12:50:20 PM >Approved. Referral Priority Routine Referral Appointment Date 09/06/2024 Reason Diabetic pt recently admitted at [facility] for hyperglycemia, all records scanned into chart Diagnosis 1 Type 2 diabetes jarrod itus with hyperglycemia (E11.65) [facility] Referring Provider First Name Unique Referring Provider Last Name Linda Referring Provider Speciality Internal edicine Referred Provider Specialty Health Inter vention, Disease Mgmt General Notes Jessica Monk 01/18 09:00:32 AM >Attempted to contact patient to initiate follow up calls. LVM requesting a return call to [phone]. [place] Nurse will follow up.Lacho Melissa 01/30/2025 09:41:10 AM >Attempted to contact patient to initiate follow up calls. LVM requesting a return call to [phone]. [place] Nurse will follow up.Lacho Melissa 02/03/2025 02:03:45 PM >Attempted to contact patient to initiate follow up calls. LVM requesting a return call to [phone]. UTR sent, please have patient reach out to [place] Team nurse to initiate follow up calls. Referral Priority Routine Reason New Patient Fax [place] Diagnosis 1 Knee pain (M25.569) Referral Organization [facility] Referring Provider First Name Unique Referring Provider Last Name Linda Referring Provider Speciality Internal M edicine Referred Provider Yin Hargrove Referred Provider Specialty Orthopedic S urgery Procedure 1 New Patient - Compre hensive/Moderate (86586) Procedure 2 Depo-Medrol, 1mg (J1 010) Procedure 3 INJ BETAMETHSN ACTAT &SOD PHOSPH-3MG (J0702) Procedure 4 DRAIN/INJECT, JOINT/ BURSA, MAJOR (59872) Procedure 5 X-RAY EXAM, KNEE, 4 OR MORE (11862) General Notes Ana Maria Davis 2024 10:59:48 [...] PT GETTING MED THROUGH ASSISTANCE PROGRAM THROUGH [employer] [facility] . CONTACT [facility] PHARMACIST FOR ANY CHANGES. DO NOT SEND TO LOCAL PHARMACY. per .22-25 [facility] admission 03/17/2024 Active Centrum Silver - Tablet TAKE 1 TABLET Daily In The Morning Oral DAILY; Duration: 0 days per .22-25 [facility] admission 11/29/2018 Active metFORMIN HCl 1000 MG Tablet TAKE 1 TABLET BY MOUTH TWICE DAILY (IN THE MORNING AND EVENING); Duration: 28 Active OneTouch Delica Plus [id number] - Miscellaneous ; Duration: 90 days 04/01/2022 Active Pantoprazole Sodium 40 MG Tablet Delayed Release TAKE 1 TABLET BY MOUTH ONCE A DAY HALF AN HOUR BEFORE FOOD IN THE MORNING (FOR BLISTER PACK); Duration: 28 Active Ondansetron 4 MG Tablet Disintegrating DISSOLVE 1 MG BY MOUTH EVERY 8 HOURS NEEDED FOR NAUSEA Oral OTHER; Duration: 5 days per [facility] admission 05/28/2023 Active Multi-Vitamin/Iron - Tablet Oral; Duration: 0 days per [facility] admission 04/04/2022 Active Aspirin 81 MG Tablet Delayed Release TAKE 1 TABLET DAILY IN THE EVENING; Duration: 28 per [facility] admission Active Clotrimazole 1 % Cream APPLY SPARINGLY T O AFFECTED AREA(S) TWICE DAILY External TWICE DAILY; Duration: 0 days per [facility] admission 09/30/2023 Active Iron 325 (65 Fe) MG Tablet TAKE 1 TABLET BY MOUTH ONCE DAILY Oral OTHER; Duration: 0 days per [facility] admission 03/17/2024 Active Bagel Nash Reflect w/Device Kit ; Duration: 1 days [...] DAILY Ophthalmic OTHER; Duration: 25 days per [facility] admission 07/09/2022 Active B-12 1000 MCG Tablet TAKE 1 TABLET BY MOUTH EVERY DAY DIRECTED Oral OTHER; Duration: 0 days per [facility] admission 03/17/2024 Active Lantus 100 UNIT/ML Solution 45 unit(s) Subcutaneous daily per [facility] admission Active Vitamin D3 1.25 MG (59514 UT) Capsule 1 capsule Orally once a week x 12 weeks then take OTC vitamin D 2000 units daily; Duration: 90 day(s) 01/17/2025 Active Acetaminophen 325 MG Tablet 1 tablet as needed Orally every 6 hrs per [facility] admission Active True Metrix Blood Glucose Test [...] Route Administration Date Status Comme nts COVID-19 (CubeTree), Single Dose IM Intramuscular 01/18/2021 Administered COVID-19 (Pristones), generic/dose unspecified IM Intramuscular 11/07/2021 Administered Fluad [...] Questionnaire 1. In the past six [facility], have you accidentally leaked urine? No Tobacco [...] Status W/U Status Risk Notes Problem Anemia (462032224) Anemia, unspecified (D64.9) 2018 Active confirmed - VERA Problem Non-thrombocytope toan purpura (825453459) Other nonthrombocytopen ic purpura (D69.2) 2020 Active confirmed Problem Type 2 diabetes mellitus with peripheral angiopathy (791487865) Type 2 diabetes mellitus with diabetic peripheral angiopathy without gangrene (E11.51) 2018 Active confirmed Problem Type 2 diabetes mellitus with other specified complication (E11.69) 2018 Active confirmed DM + HLD Problem Essential tremor (775720291) Essential tremor (G25.0) 2018 Active confirmed Problem Myasthenia gravis without exacerbation (00161163476782) Myasthenia gravis without (acute) exacerbation (G70.00) 2019 Active confirmed -Positive acetylcholine receptor binding antibodies, acetylcholine receptor blocking antibodies, acetylcholine receptor modulating antibodies and antis triation antibodies in July 2020 Problem 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 Problem Stricture of artery (63680025) Stricture of artery (I77.1) 2018 Active confirmed -chest xr done on 07/21/16 Problem History of artificial joint (443927552) Presence of left artificial hip joint (Z96.642) 2020 Active confirmed [id number]/ 10/2021, IMPRESSION: 12/27/2020 By: Unique Mckeon - -Uneventful surgery -Continue aspirin twice daily for DVT prophylaxis -Continue oxycodone until finished -Continue therapy at home -Follow-up scheduled with the orthopedics in 5 days . Problem Vitamin D deficiency (83130936) Vitamin D deficiency (E55.9) Active confirmed Problem Hyperglycemia due to type 2 diabetes mellitus (736704087497407) Type 2 diabetes mellitus with hyperglycemia (E11.65) 2022 Active confirmed Problem Mixed hyperlipidemia (041753620) Mixed hyperlipidemia (E78.2) 2018 Active confirmed Problem Hypertensive heart disease (72995287) Hypertensive heart disease (I11.9) Active confirmed Problem Benign prostatic hypertrophy without outflow obstruction (414633364) Benign prostatic hyperplasia without lower urinary tract symptoms (N40.0) 2018 Active confirmed Problem Anxiety disorder (668604522) Anxiety disorder, unspecified (F41.9) 2023 Active confirmed Problem 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 Problem Supraventricular tachycardia (disorder) (0440693) Supraventricular tachycardia, unspecified (I47.10) 2022 Active confirmed Vital Signs Temperature 98.2 degrees Fahrenheit 02/08/2025 Respiratory Rate 15 /min 02/08/2025 Oximetry 98 % 02/08/2025 Blood pressure diastolic 87 mm Hg 02/08/2025 Height 67 in 02/08/2025 Blood pressure systolic 139 mm Hg 02/08/2025 Weight 148.0 lbs 02/08/2025 BMI 23.18 kg/m2 02/08/2025 Encounters Encounter Location Date Provider Diagnosis [facility] [address] [place] [id number] 06/23/2024 Unique Linda [facility] [address] [place], [place] [id number] 06/23/2024 Unique Linda [facility] [address] [place], [place] [id number] 07/08/2024 Unique Linda [facility] [address] [place], [place] [id number] 07/14/2024 Unique Linda [facility] [place] [facility] [address] [place], [place] [id number] 08/29/2024 Unique Linda [facility] [place] [facility] [address] [place] [id number] 10/12/2024 Unique Linda [facility] [address] [place] [id number] 12/28/2024 Unique Linda [facility] [address] [place] [id number] 01/02/2025 Unique Linda [facility] [address] [place] [id number] 01/04/2025 Unique Linda [facility] [address] [place] [id number] 01/04/2025 Unique Linda [facility] [address] [place] [id number] 01/05/2025 Unique Linda [facility] [place] [facility] [address] [place], [place] [id number] 01/06/2025 Unique Linda [facility] [address] [place] [id number] 01/09/2025 Unique Linda Type 2 diabetes jarrod itus with other specified complication E11.69 ; Other nonthrombocytopenic purpura D69.2 ; Anemia, unspecified D64.9 ; Myasthenia gravis without (acute) exacerbation G70.00 ; Mixed hyperlipidemia E78.2 ; Type 2 diabetes mellitus with hyperglycemia E11.65 ; Iron deficiency anemia, unspecified iron deficiency anemia type D50.9 and Hypertensive heart disease I11.9 [facility] [address] [place] [id number] 01/12/2025 Unique Linda [facility] [address] [place] [id number] 01/13/2025 Unique Linda [facility] [address] [place] [id number] 01/25/2025 Unique Linda [facility] [address] [place] [id number] 03/30/2025 Unique Linda [facility] [address] [place] [id number] 06/23/2024 Unique Linda Essential (primary) hypertension I10 ; Type 2 diabetes mellitus with other specified complication E11.69 and Anemia, unspecified D64.9 [facility] [address] [place], [place] [id number] 10/03/2024 Unique Linda Myasthenia gravis wi thout (acute) exacerbation G70.00 ; Type 2 diabetes mellitus with other specified complication E11.69 ; Hyperlipidemia, unspecified E78.5 and Essential (primary) hypertension I10 [facility] [address] [place] [id number] 01/10/2025 Unique Linda Other nonthrombocyto penic purpura D69.2 ; Type 2 diabetes mellitus with other specified complication E11.69 ; Anemia, unspecified D64.9 ; Myasthenia gravis without (acute) exacerbation G70.00 ; Mixed hyperlipidemia E78.2 ; Type 2 diabetes mellitus with hyperglycemia E11.65 ; Iron deficiency anemia, unspecified iron deficiency anemia type D50.9 and Hypertensive heart disease I11.9 [facility] [address] [place] [id number] 01/12/2025 Unique Linda Swelling of right ortega nd M79.89 [facility] [address] [place] [id number] 01/05/2025 Unique Linda Encounter for genera l adult medical examination [...] (acute) exacerbation G70.00 ; Unspecified atherosclerosis of [place] arteries of extremities, right leg I70.201 ; Stricture of artery I77.1 ; Type 2 diabetes mellitus with hyperglycemia E11.65 ; Mixed hyperlipidemia E78.2 ; Supraventricular tachycardia, unspecified I47.10 ; Brain atrophy G31.9 and Hypertensive heart disease I11.9 [facility] [address] [place] [id number] 02/08/2025 Unique Linda Hypertensive heart d isease I11.9 and Type 2 diabetes mellitus with hyperglycemia E11.65 [facility] [address] [place] [id number] 01/17/2025 Unique Linda Vitamin D deficiency E55.9 ; Encounter for general adult medical examination with abnormal findings Z00.01 ; Hypertensive heart disease I11.9 and Type 2 diabetes mellitus with hyperglycemia E11.65 [facility] [address] [place] [id number] 10/10/2024 Unique Linda Essential (primary) hypertension I10 ; Type 2 diabetes mellitus with other specified complication E11.69 and 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 [facility] [address] [place], [place] [id number] 06/24/2024 [facility] [address] [place], [place] [id number] 01/20/2025 Unique Linda Assessments Encounter Date Diagnosis (ICD [...] mg BID (5 mg dose sent to [facility] to add to the 5 mg dose [...] log and bring it to the next pharmacy team on board 01/05/2025 Immunodeficiency due [...] (ICD-10 - I11.9) 01/05/2025 Unspecified atherosclerosis of [place] arteries of extremities, right leg (ICD-10 - [...] Insured Coverage Start Date Coverage End Date [id number] [employer] [address] [address] [place], [place] [id number] Demario Kevin Self - patient is [...] Alert) 01/26/2023 1000 mL Lactated Ringers, 1000mL (Or gh Alert) 05/28/2023 500 mL Lactated Ringers, 1000mL (Or gh Alert) 11/25/2023 1000 mL Lactated Ringers, 1000mL (Or gh Alert) 02/09/2024 1000 mL Methylprednisolone Acetate, [...]
--- OUTSIDE RECORDS SUMMARY | 2025-06-12 09:03 | XMS_ITS | Patient Health Record ---
Author Organization [facility] Address [address] [place] [address] Care Team Providers Care Controls Design Engineer Name Role Phone Unique Mckeon Primary Care Provider Catie Hernadez Unavailable [phone] Allergies Allergen (clinical drug ingredient) Drug/Non Drug [...] Metoprolol ER 25 MG QD Active pyRIDostigmine [place] 60 MG 1 tablet Orally every 4 [...] Notes Problem Hemorrhage of rectum and anus (128363551) Hemorrhage of anus and rectum (K62.5) Active confirmed Problem Dysphagia (67892178) Dysphagia (R13.10) Active confirmed Problem Gastroesophageal reflux disease (833567233) Gastro esophageal reflux disease (K21.9) Active confirmed Plan Of Treatment No Information Insurance Providers Payer Name Payer Address Payer Phone Subscriber Number Group Number Insured Name Patient Relationship to Insured Coverage Start Date Coverage End Date [facility] D[facility] SNP [address] [address] [place] [phone] [id number] Demario Kevin Self - patient is the insured MEDICAID [address] [place] [address] [phone] [id number] Demario Kevin Self - patient is the insured Medical (General) History Medical History History ICD Code hyperlipidemia hypertension benign prostatic hyperplasia (BPH) cardiomyopathy Heart Disease SVT type II diabetes Surgical History Surgery Date(Month/Year) hip surgery
--- OUTSIDE RECORDS SUMMARY | 2025-06-12 09:03 | XMS_ITS | Patient Health Record ---
Author Organization [facility] Address [address] [address] Phone [phone] Care Team Providers Care Community Program Assistant Name Role Phone Nolberto Cook Primary Care Provider [phone] Allergies Allergen (clinical drug ingredient) Drug/Non Drug [...] other tobacco user? No Section Notes: Quit [id number]. Quit [id number]. Quit [id number]. Quit [id number]. Quit [id number]. Quit [id number]. Quit [id number]. Quit [id number]. Quit [id number]. Quit [id number]. Problems Problem Type SNOMED Code ICD Code Onset Dates Problem Status W/U Status Risk Notes Problem Neurologic disorder associated with type II diabetes mellitus (723290305) Diabetes with neurological manifestations, type II or unspecified type, not stated as uncontrolled (250.60) Active confirmed Problem Neurologic disorder associated with type II diabetes mellitus (074852749) Diabetes with neurological manifestations, type II or unspecified type, uncontrolled (250.62) Active confirmed Problem Diabetic polyneuropathy (18921461) Polyneuropathy in diabetes (357.2) Active confirmed Problem Peripheral vascular disease (312441469) Unspecified peripheral vascular disease (443.9) Active confirmed Problem 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) (54493813) Benign hypertensive heart disease without heart failure (402.10) Active confirmed Problem 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) Active confirmed Problem Venous varices (489828286) Asymptomatic varicose veins (454.9) Active confirmed Problem Synovial popliteal cyst (disorder) (9610498002) Synovial cyst of popliteal space (727.51) Active confirmed Problem Osteopetrosis (6129116) Osteopetrosis (756.52) Active confirmed Problem Insomnia (081914829) Insomnia, u nspecified (780.52) Active confirmed Problem Body mass index 25-2 9 - overweight (430778825) Body Mass Index 26.0-26.9, adult (V85.22) Active confirmed Problem Pure hypercholesterolemia (665855997) Pure hypercholesterolemia (E78.0) Active confirmed Problem Diabetic polyneuropathy (15949723) Polyneuropathy in diabetes (E11.42) Active confirmed Problem Benign paroxysmal positional vertigo (907138816) Benign paroxysmal positional vertigo (H81.10) Active confirmed Problem BMI 25-29 - overweight (778919853) Body mass index 27.0-27.9, adult (Z68.27) Active confirmed Problem Hypertensive retinopathy (9942741) Hypertensive retinopathy of both eyes (362.11) Active confirmed Problem Weakness (09498956) Weakness (R53.1) Active con firmed Problem Diabetic peripheral neuropathy associated with type 2 diabetes mellitus (7275931525803) Type 2 diabetes mellitus with diabetic neuropathy, unspecified (E11.40) Active confirmed Problem Insomnia (030673424) Insomnia, u nspecified (G47.00) Active confirmed Problem Hypertensive retinopathy (5420241) Hypertensive retinopathy, unspecified eye (H35.039) Active confirmed Problem 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 (00489630) Hypertensive heart disease without heart failure (I11.9) Active confirmed Problem Enlarged prostate (175662864) Enlarged prostate without lower urinary tract symptoms (N40.0) Active confirmed Problem Osteopetrosis (7202987) Osteopetrosis (Q78.2) Active confirmed Problem Body mass index 25-2 9 - overweight (881871276) Body mass index (BMI) 26.0-26.9, adult (Z68.26) [...] diabetic peripheral neuropathy influenza vaccine 08/2013; 2013 @[facility] pneumovax in hospital 1994;2013 @[facility] Diabetes mellitus without me ntion of complication, type II or unspecified type, not stated as uncontrolled varicose veins legs 06/09/14 u/s Dr. alessia guerrero MD [facility]. surgeon catract; htn retinopathy, dry maculopath y 05/2015 DR. Kevin bravo DO report positional vertigo Surgical History Surgery Date(Month/Year) Right THR 1979 torn armond R knee 1969 colonoscopy: normal 2010
== END 2025-06-12 23:59 | disposition home or self-care (01) ==
LOC: RT 08:56
PROVIDERS: PCP Internal Medicine; Visit Provider Physician Assistant
DX: I47.19 Other supraventricular tachycardia (principal); I47.29 Other ventricular tachycardia; I49.1 Atrial premature depolarization; I49.3 Ventricular premature depolarization; I48.19 Other persistent atrial fibrillation
CPT/HCPCS: 93270

== ENCOUNTER 2025-07-25 09:49 | Outpatient (CLI) | payer MEDICARE, SELFPAY ==
--- OUTSIDE RECORDS SUMMARY | 2021-10-30 08:15 | XMS_ITS | Continuity of Care Document ---
Author Organization [facility] Address [address] [facility] [address] [place] [address] Phone Care Team Providers Care Cryptologic Linguist Name Role Phone Jignesh Cowart MD Unavailable Unavaila ble Allergies, Adverse Reactions, Alerts Substance Reaction Status Criticality No Known Allergies Active No Inform ation Medications Medication Instructions Dosage Effective Dates (start - stop) Status Comments aspirin 81 mg chewable tablet chew 1 (81MG) by oral route every day 81 MG - Active Januvia 100 mg tablet take 1 tablet by o ral route every day 100 MG - Active glimepiride 4 mg tablet take 1 tablet by oral route 2 times every day 4 MG - Active tamsulosin 0.4 mg capsule take 1 capsule by oral route every day 1/2 hour following the same meal each day 0.4 MG - Active metformin 1,000 mg tablet take 1 tablet by oral route 2 times every day with morning and evening meals 1000 MG - Active pyridostigmine bromide 60 mg tablet take 1 tablet by oral route 3 times every day 60 MG - Active amlodipine 5 mg tablet [...] Visual Field Gomez No Offic/outpt E&m [facility] 45 Advance Directives Directive Yes / No Effective Date File Name No Information Encounters Encounter Description Practice Location Reason(s) For Visit Diagnoses Date Provider Providers Copied on Encounter [facility], [address], [place], [place], [address] [place] [address] , tel:[phone] [facility] Dermatochalasis of both upper eyelidsDermatoch alasis of left upper eyelid 1 [place]. [address], [address] [place] [address], . tel:[phone] Referring Provider: Jignesh Shields, [address], [address] [place] [address]. tel:[phone] [facility], [address] [place] [address], [address] [place] [address] , tel:[phone] [facility] No Information 1 [facility]. [address], [address] [place] [address], . tel:[phone] Referring Provider: Jignesh Shields, [address], [address] [place] [address]. tel:[phone] [facility] Facility [address], [address] [place] [address] , tel:[phone] [facility] No Information 1 [facility]. [address], [address] [place] [address], . tel:[phone] Referring Provider: Jignesh Shields, [address], [place], [address] [place] [address]. tel:[phone] [facility], [address] , [place], [address] [place] [address] , tel:[phone] [facility] No Information 1 Lesly Hernandez. [address] [facility] [address] , [place], [address] [place] [address], . tel:[phone] [facility], [address], [place], [place], [id number] , tel:[phone] [facility] Dermatochalasis of both upper eyelidsDermatoch alasis of left upper eyelid 1 [facility] [place]. [address], [place], [address] [place] [address], . tel:[phone] Referring Provider: Jignesh Shields, [address] [facility], [place], [address] [place] [address]. [phone] [facility], [address] [facility], [place], [address] [place] [address] , tel:[phone] [facility] Dermatochalasis of left upper eyelidDermatocha lasis of both upper eyelids 1 [facility] [place]. [address], [place], [address] [place] [address], . tel:[phone] Referring Provider: Jignesh Shields, [address] [facility] , [place], [address] [place] [address]. tel:[phone] Offic/outpt E&m [place] 45 [facility], [address] , [place], [address] [place] [address] , tel:[phone] [facility] Dermatochalasis of both upper eyelidsDermatoch alasis of left upper eyelid 1 [facility] [place]. [address], [place], [place], [id number], . tel:[phone] Referring Provider: Bernie Mabry , [address] [place] [address], [address]. tel:[phone] Family History Family Member Type Diagnosis Age At Onset No Information Payers Payer name Insurance type Covered libertarian ID Authoriza tisadia(s) [employer] Dual Medicare CI [id number] Social History Type Description Quantity Date Captured [...]
--- OUTSIDE RECORDS SUMMARY | 2025-02-24 10:00 | XMS_ITS ---
Author Organization [facility] Address [address] [place] [address] Care Team Providers Care Data Warehousing Architect Name Role Phone Unique Mckeon Primary Care Provider REASON FOR VISIT Pharm DM f/u - call rcahel Encounters Encounter Location Date Provider Diagnosis [facility] [place] [facility] [address] [facility] [address] [place], [place] [id number] 02/24/2025 Unique Mckeon Plan Of Treatment No Information Progress Notes * Demario KEVIN SDOB: (85 yo M)Acc No.[id number]:02/24/2025 UNLOCKED PROGRESS NOTE Patient: Cornelius villeda Demario [place] Provider: Madeleine Mckeon :1940 A ge:84 Y S ex:Male Date:02/24/2025 Address:[address] [place] [address], [address] [place], [place] [id number] Subjective: * Chief Complaints: * P harm DM f/u - call rachel Objective: Past Vitals:* 02/08/2025 BP:139/87mm Hg, RR:15/min, P ulse:65/min, Temp:98.2F, Ht:67in, Wt:148.0lbs, BMI:23.18Index, Oxygen Sat:98%, Pain Scale:01-10 * 01/17/2025 BP:132/74mm Hg, RR:16/min, P ulse:92/min, Temp:98.0F, Ht:67in, Wt:145.4lbs, BMI:22.77Index, Oxygen Sat:92%, Pain Scale:01-10 * 01/12/2025 BP:sittin/78mm Hg, RR:1 6/min, Pulse:sittin/min, Temp:oral:97.9F, Wt:145.6lbs, Oxygen Sat:Room Air:96%, Pain Scale:21-10 * 01/05/2025 BP: 162/69 mm Hg,repeat:175/ 79mm Hg, RR:16/min, Pulse:74/min, Temp:98.0F, Ht:67in, Wt:151.0lbs, BMI:23.65Index, Oxygen Sat:94%, Pain Scale:01-10 * 10/10/2024 BP:133/83mm Hg, RR:16/min, P ulse:78/min, Temp:98.2F, Ht:67in, Wt:147.8lbs, BMI:23.15Index, Oxygen Sat:94%, Pain Scale:01-10 * Electronic signature of Murali Mckeon MD on 07/25/2025 at 10:19 AM EDT Sign off status: Pending * Provider: Madeleine Mckeon Date: 0 02/24/2025 Generated for Marii tong/Julian/Maribel on: 0 07/25/2025 10:19 AM EDT
--- OUTSIDE RECORDS SUMMARY | 2025-04-06 04:17 | XMS_ITS | Continuity of Care Document ---
Author Organization [facility] Address [address] [place] [address] Phone Care Team Providers Care Pneumatic System Conveyor Operator Name Role Phone Moe MSN, GRANTS ADMINISTRATOR, Jessica Unavailable Unavai lable Allergies, Adverse Reactions, [...] Location Reason(s) For Visit Diagnoses Date Provider [facility], [address] [place], [address], [place] tel:[phone] No Information 5 Rosa Jessica. [address] [place], [place], [id number] , [place]. tel: [phone] [facility], [address] [place] [address], [facility], tel:[phone] Vitamin B12 deficiency 5 Rosa Jessica. [address] [place], [place], [id number] , [place]. tel: [phone] [facility], [address] [place] [address], [facility], tel:[phone] b12 # 2 of 6 (chief complaint) Vitamin D deficiencyVitamin B12 deficiency 5 Rosa Jessica. [address] [place], [place], [address] [place] [address] , [place]. tel: [phone] [facility], [address] [place] [address], [facility], tel:[phone] [facility] Follow up on labs (chief complaint) Left Knee Pain (chief complaint) Vitamin B12 deficiencyPain in left kneeType 2 diabetes mellitus without complicationsVitamin D deficiencyBody mass index [BMI] 27.0-27.9, adult Feb- 5 Rosa Jessica. [address] [place], [place], [id number] , [place]. tel: [phone] [facility], [address] [place] [address], [facility], [place] tel:[phone] No Information 5 Rosa Jessica. [address] [place], [place], [address] [place] [address] , . tel: [phone] [facility], [address] [place] [address], [facility], [place] tel:[phone] new to establish (chief complaint) Depression screening (chief complaint) Prapare (chief complaint) Essential tremorExtreme povertyLess than a high school diplomaEncounter for screening for depressionChronic atrial fibrillation, unspecifiedEssential (primary) hypertensionType 2 diabetes mellitus without complicationsBody mass index [BMI] 28.0-28.9, adultDepressionAnxiety Moe Lopez. [address] [place], [id number] , . tel: [phone] Family History Family Member Type Diagnosis Age At Onset Daughter Problem Alive and well Daughter Problem cause of , complication s from DM Sister Problem Alive and well Daughter Problem Diabetes mellitus Daughter Problem Alive and well Daughter Problem Alive and well Son Problem cause of , complication s of DM Father Problem was shot while in the line o f duty, police worker Mother Problem natural causes Son Problem Alive and well Daughter Problem Alive and well Son Problem Diabetes mellitus Son Problem Diabetes mellitus Daughter Problem Diabetes mellitus Payers Payer name Insurance type Covered alliance party ID Authormarciala berenice(s) [facility] Adv [employer] CI [id number] Social History Type Description Quantity Date Captured Comments Alcohol Use Details Unknown Caffeine Use Details Unknown Tobacco Use Status No Information Smoking Status No Information Sex Male Sexual Orientation Straight or heterosexual Feb Gender Identity Male Chief Complaint And Reason For Visit No Information Plan Of Treatment Date Type Action Status Goal Obtain blood Pressure. Due o n due Goal Dilated eye exam. Due on March due Goal Lipid panel. Due on 026 due Goal Dental exam. Due on 025 due Goal Influenza vaccine. Due on due Goal Urine microalbumin. Due on A due Goal Foot exam. Due on due Goal GFR. Due on due Goal Hemoglobin A1C. Due on due Goal Pneumococcal vaccine. Due on due Goal Unhealthy drug use screening due Goal Tobacco Use Screening. Due o n due Goal Drug Abuse Scree clotilde Test (DAST-10). Due on due Goal Vitamin D. Due on due Goal CMP. Due on due Goal Follow up Plan f or abnormal BMI (Less than 18.5, greater than 25). Due on due Goal Generalized Anxi ety Disorder - 7 (MANJINDER-7). Due on due Goal CBC. Due on due Goal Tobacco screening. Due on Ap due Goal Obtain Height, Weight, and B OR. Due on due Goal Vitamin B12. Due on due Goal Depression screening. Due on due Goal Urinalysis due Goal ECG. Due on due Goal Diabetes screening. Due on A due Goal Depression screening. Due on due Goal Lipid panel. Due on due Goal Hemoglobin A1C. Due on due Goal GFR. Due on due Goal Urine microalbumin. Due on A due Goal Dilated eye exam. Due on March due Goal Foot exam. Due on due Goal Influenza vaccine. Due on Ma due Goal Urinalysis due Goal Dental exam. Due on due Goal Tobacco screening. Due on Ap due Goal Follow up Plan f or abnormal BMI (Less than 18.5, greater than 25). Due on due Goal Generalized Anxi ety Disorder - 7 (MANJINDER-7). Due on due Goal Vitamin B12. Due on due Goal CMP. Due on due Goal Obtain Height, Weight, and B OR. Due on due Goal Tobacco Use Screening. Due o n due Goal Vitamin D. Due on due Goal CBC. Due on due Goal Drug Abuse Scree clotilde Test (DAST-10). Due on due Goal Unhealthy drug use screening due Goal Pneumococcal vaccine. Due on due Goal Obtain blood Pressure. Due o n due Goal ECG. Due on due Goal Diabetes screening. Due on A due Goal Urine microalbumin. Due on A due Goal Lipid panel. Due on due Goal ECG. Due on due Goal Pneumococcal vaccine. Due on due Goal Dental exam. Due on due Goal Foot exam. Due on due Goal Dilated eye exam. Due on March due Goal Hemoglobin A1C. Due on due Goal GFR. Due on due Goal Follow up Plan f or abnormal BMI (Less than 18.5, greater than 25). Due on due Goal CMP. Due on due Goal Tobacco Use Screening. Due o n due Goal Tobacco screening. Due on Ap due Goal Drug Abuse Scree clotilde Test (DAST-10). Due on due Goal Generalized Anxi ety Disorder - 7 (MANJINDER-7). Due on due Goal Vitamin D. Due on due Goal Obtain Height, Weight, and B OR. Due on due Goal CBC. Due on due Goal Vitamin B12. Due on due Goal Unhealthy drug use screening due Goal Influenza vaccine. Due on due Goal Depression screening. Due on due Goal Obtain blood Pressure. Due o n due Goal Urinalysis due Goal Diabetes screening. Due on A due Goal Foot exam. Due on due Goal Dilated eye exam. Due on Feb due Goal Hemoglobin A1C. Due on due Goal Lipid panel. Due on 026 due Goal Dental exam. Due on 025 due Goal Urine microalbumin. Due on A due Goal GFR. Due on due Goal Vitamin D. Due on due Goal Tobacco screening. Due on due Goal Unhealthy drug use screening due Goal Drug Abuse Scree clotilde Test (DAST-10). Due on due Goal Depression screening. Due on due Goal Pneumococcal vaccine. Due on due Goal Obtain blood Pressure. Due o n due Goal Urinalysis due Goal ECG. Due on due Goal Diabetes screening. Due on A due Goal Obtain Height, Weight, and B OR. Due on due Goal CMP. Due on due Goal Vitamin B12. Due on due Goal Follow up Plan f or abnormal BMI (Less than 18.5, greater than 25). Due on due Goal Tobacco Use Screening. Due o n due Goal Generalized Anxi ety Disorder - 7 (MANJINDER-7). Due on due Goal CBC. Due on due Goal Influenza vaccine. Due on due Goal Dilated eye exam. Due on Feb due Goal Foot exam. Due on due Goal Dental exam. Due on due Goal Lipid panel. Due on due Goal Hemoglobin A1C. Due on due Goal GFR. Due on due Goal Tobacco screening. Due on due Goal Generalized Anxi ety Disorder - 7 (MANJINDER-7). Due on due Goal Vitamin D. Due on due Goal Vitamin B12. Due on due Goal CMP. Due on due Goal Drug Abuse Scree clotilde Test (DAST-10). Due on due Goal Urine microalbumin. Due on A due Goal Unhealthy drug use screening due Goal Tobacco Use Screening. Due o n due Goal Follow up Plan f or abnormal BMI (Less than 18.5, greater than 25). Due on due Goal CBC. Due on due Goal Obtain Height, Weight, and B OR. Due on due Goal Depression screening. Due on due Goal Influenza vaccine. Due on due Goal Pneumococcal vaccine. Due on due Goal Obtain blood Pressure. Due o n due Goal Urinalysis due Goal ECG. Due on due Goal Diabetes screening. Due on A due Goal Lifestyle education regardin g diet completed Goal Foot exam. Due on due Goal Urine microalbumin. Due on A due Goal Hemoglobin A1C. Due on due Goal Dental exam. Due on due Goal GFR. Due on due Goal Dilated eye exam. Due on Feb due Goal Pneumococcal vaccine. Due on due Goal Influenza vaccine. Due on Ap due Goal Depression screening. Due on due Goal Urinalysis due Goal ECG. Due on due Goal Obtain blood Pressure. Due o n due Goal Diabetes screening. Due on A due Goal Tobacco screening. Due on due Goal Lipid panel. Due on due Goal Drug Abuse Scree clotilde Test (DAST-10). Due on due Goal Obtain Height, Weight, and B OR. Due on due Goal Vitamin D. Due on due Goal Unhealthy drug use screening due Goal Tobacco Use Screening. Due o n due Goal Vitamin B12. Due on due Goal Generalized Anxi ety Disorder - 7 (MANJINDER-7). Due on due Goal CMP. Due on due Goal CBC. Due on due Goal Follow up Plan f or abnormal BMI (Less than 18.5, greater than 25). Due on due Goal Lifestyle education regardin g diet completed Referral Referred To: [facility] Ordered: Referrals: Cardiology. [facility]. Location: [place]. Evaluate and treat Appointment date/timeframe: 03/16/2025 ordered History Of Present Illness Encounter Date Complaint History Of Prese nt Illness b12 # 2 of 6 Demario is here t kemal for b12 # 2 of 6RTC 1 week for next injection Follow up on labs Demario's labs are back today. Provider is going to go over labs with patient.He is a newer pt to us, and today reports he has been out of his medications for months.He recently relocated here from [place] to live with his daughter.Alk Phos is [...] medications have arrivedhe reports is taking now. Left Knee Pain It occurs consta ntly and is worsening. Location: left knee. The pain is aching and sharp. Context: there is no injury. The pain is aggravated by movement. Associated symptoms include decreased mobility, joint tenderness, limping and swelling. Pertinent negatives include bruising, crepitus and joint instability. Additional information: long standing osteo arthritis, and joint effusion of left knee. (previously hospitalized in [place] for his knee). new to establish Demario is an 84 [...] injection in both knees-osteoarthritis.Demario has relocated from [place], [place] to live here with his daughter r/t his health disparities.He is out of some of his medicationsHe does not know what medication he is takingI have called [facility] in [place], [place] [phone] and left message to fax a current [...] 145/83 uncontrolled, hx of a-fib. Will start [id number] 9.4- has not had DM eye exam in 2 years- will start Jardiance and Metformin ERnon-fasting labs collected today- will review with results in 1-2 weeks. Depression screening Depression screening completed 03/01/25. Pt scored 0, provider aware. -CLAY ERICKSON Prapare Prapare complete d 03/01/25. -clay ERICKSON Instructions Date Instruction Additional Infor letty [...]
--- OUTSIDE RECORDS SUMMARY | 2025-04-10 21:15 | XMS_ITS ---
Author Organization [employer] Address [address] [place] [address] Care Team Providers Care Learning Engineer Name Role Phone Unique Mckeon Primary Care Provider [phone] REASON FOR VISIT Lab Encounters Encounter Location Date Provider Diagnosis [facility] [address] [place], [place] [id number] 04/11/2025 Unique Mckeon Plan Of Treatment No Information Progress Notes * Demario KEVIN SDOB: (85 yo M)Acc No.[id number]:04/11/2025 UNLOCKED PROGRESS NOTE Patient: Cornelius gonzalezDemario quick Provider: Madeleine Mckeon :1940 A ge:84 Y S ex:Male Date:04/11/2025 Address:[address] [place] [address], [address] [place], [place] [id number] Subjective: * Chief Complaints: * L ab Objective: Past Vitals:* 02/08/2025 BP:139/87mm Hg, RR:15/min, [...] Pending * Provider: Madeleine Mckeon Date: 0 04/11/2025 Generated for Marii tong/Julian/Maribel on: 0 07/25/2025 10:19 AM EDT
--- OUTSIDE RECORDS SUMMARY | 2025-04-11 09:15 | XMS_ITS ---
Author Organization [employer] Address [address] [place] [address] Care Team Providers Care Vice President Of Talent Acquisition Name Role Phone Unique Mckeon Primary Care Provider REASON FOR VISIT Lab Encounters Encounter Location Date Provider Diagnosis [facility] [address] [place], [place] [phone] 04/11/2025 Unique Mckeon Plan Of Treatment No Information Progress Notes * Demario KEVIN SDOB: (85 yo M)Acc No.[id number]:04/11/2025 UNLOCKED PROGRESS NOTE Patient: Cornelius gonzalezDemario quick Provider: Madeleine Mckeon :1940 A ge:84 Y S ex:Male Date:04/11/2025 Address:[address] [place] [address], [address] [place], [place] [id number] Subjective: * Chief Complaints: * L ab [...]
--- OUTSIDE RECORDS SUMMARY | 2025-04-19 10:20 | XMS_ITS ---
Author Organization [employer] Address [address] [place] [address] Care Team Providers Care Pest Control Operator Name Role Phone Unique Mckeon Primary Care Provider REASON FOR VISIT routine visit Encounters Encounter Location Date Provider Diagnosis [facility] [address] [place], [place] [phone] 04/19/2025 Unique Mckeon Plan Of Treatment No Information Progress Notes * Demario KEVIN SDOB: (85 yo M)Acc No.[id number]:04/19/2025 UNLOCKED PROGRESS NOTE Progress Notes Patient: Cornelius villeda Demario [place] Provider: Madeleine Mckeon :1940 A ge:84 Y S ex:Male Date:04/19/2025 Address:[address] [place] [address], [address] [place], [place] [id number] Subjective: * Chief Complaints: * R outine [...] of Murali Mckeon MD on 07/25/2025 at 10:20 AM EDT Sign off status: Pending * Provider: Madeleine Mckeon Date: 0 04/19/2025 Generated for Marii tong/Julian/Maribel on: 0 07/25/2025 10:20 AM EDT
--- NOTE | 2025-07-25 09:52 | XR_ITS ---
FINAL REPORT CLINICAL HISTORY: Knee pain FINDINGS: RIGHT KNEE 2 views of the right knee were obtained. There is no acute fracture or dislocation. Bones are osteopenic. There are moderate tricompartmental degenerative changes. A density is seen in the mid femoral nodular bone which could represent methylmethacrylate from prior arthroplasty. However, if there is no history of prior surgery recommend femoral x-ray for further evaluation. The joint spaces are intact. There is no soft tissue abnormality. IMPRESSION: No acute fracture Reviewed, Interpreted and Dictated by Kevin Cantor MD Transcribed by Leonarda Lawton Authenticated and [facility]
--- OUTSIDE RECORDS SUMMARY | 2025-07-25 10:19 | XMS_ITS | Patient Health Record ---
Author Organization [employer] Address [address] [address] Care Team Providers Care Clinical Case Manager Name Role Phone Unique Mckeon Primary Care Provider Allergies Allergen (clinical drug ingredient) Drug/Non Drug Allergy documented on EMR Reaction Allergy Type Onset Date Status angiotensin-converting enzyme inhibitor (FN) ALFONZO Inhibitors Angioedema Drug Allergy 05/06/2021 Acti ve Results Component Value Reference Range Flag Notes TSH reflex to T4 Reviewed date:10/10/2024 09:43:11 AM Interpretation: Performing Lab:[facility] [address] [id number], Phone - [phone], Director - Sameer Notes/Report: TSH 2.300 0.450-4.500 uIU/mL Lipid Panel With LDL/HDL Rat io Reviewed date:10/10/2024 09:43:11 AM Interpretation: Performing Lab:[facility] [address] [id number], Phone - [phone], Director - Sameer Notes/Report: Cholesterol, Total 138 100-199 mg/dL Triglycerides 163 0-149 mg/dL H HDL Cholesterol 47 >39 mg/dL VLDL Cholesterol Miguel 28 5-40 mg/dL LDL Chol Calc (NIH) 63 0-99 mg/dL LDL/HDL Ratio 1.3 0.0-3.6 ratio Avg.Risk 3.6 3.2 2X Avg.Risk 6.2 5.0 LDL/HDL Ratio 1/2 Avg.Risk 1.0 1.5 Men Women 3X Avg.Risk 8.0 6.1 Comprehensive Metabolic Pane l 14 (CMP) Reviewed date:10/10/2024 09:43:11 AM Interpretation: Performing Lab:[facility] [id number], Phone - [phone], Director - Sameer Notes/Report: Glucose 454 70-99 [...] 0-40 IU/L ALT (SGPT) 13 0-44 IU/L Neutrophil to Lymphocyte Rat io (NLR), Complete Blood Count With Differential (CBC) Reviewed date:10/10/2024 09:43:11 AM Interpretation: [facility] [address] [place] [id number], Phone - [phone], Director - Sameer Notes/Report: WBC 7.8 3.4-10.8 x10E3/uL Effective October 10, 2024 profile [id number] WBC will be made non-orderable as a [...] 0.7-3.1 x10E3/uL Neut/Lymph Ratio 2.5 0.0-2.9 ratio High likelihood of severe COVID-19 disease progression 0.0-2.9 Published COVID-19 studies suggest: disease progression >4.9 Low likelihood of severe COVID-19 Monocytes(Absolute) 0.6 0.1-0.9 x10E3/uL Eos (Absolute) 0.2 0.0-0.4 x10E3/uL Baso (Absolute) 0.0 0.0-0.2 x10E3/uL Immature Granulocytes 1 Not Estab. % Immature Grans (Abs) 0.0 0.0-0.1 x10E3/uL Hemoglobin A1c with GlycoMar k(R) Reflex Reviewed date:10/10/2024 09:43:11 AM Interpretation: Performing Lab:[facility] [address] [id number], Phone - [phone], Director - Sameer Notes/Report: Hb A1c Diabetic Assessment 13.3 H Increased risk for diabetes: Note: A reflex test was ordered on this specimen. If A1c results are between a value of 6.0 to 8.0 (including 6.0 and post prandial glucose spikes from the past 2 weeks, where as Ongoing Hyperglycemia: >6.4 Reference Range: Normal: <5.7 Glycemic control for adults with diabetes: <7.0 (ADA) A1c reflects average glycemic control over the past 3 5.7 - 6.4 months. 8.0), GlycoMark testing is performed. GlycoMark reflects Estimated Average Glucose 335 GlycoMark(R)(1,5 AG) TNP Testing Not Indicated GlycoMark(TM) is intended for use with managing glycemic 1, 5-AG blood levels can be affected by clinical conditions high glucose peaks. control in diabetic patients. A low result corresponds to or medications. Please refer to the directory of services or [facility] website test menu for detailed list of limitations. Vitamin D, 25-Hydroxy Reviewed date:01/12/2025 07:43:52 AM Interpretation: Performing Lab:[address] [id number], Phone - [phone], Director - Sameer Notes/Report: Vitamin D, 25-Hydroxy 26.6 30.0-100.0 ng/mL L Vitamin B12 and Folate Reviewed date:01/12/2025 07:43:51 AM Interpretation: Performing Lab:[address] [id number], Phone - [phone], Director - Sameer Notes/Report: Vitamin B12 978 432-3979 pg/mL Folate (Folic Acid), Serum 16.2 >3.0 ng/mL considered to represent clinical deficiency. A serum folate concentration of less than 3.1 ng/mL is TSH Reviewed date:01/12/2025 07:43:52 AM Interpretation: Performing Lab:[address] [id number], Phone - [phone], Director - Sameer Notes/Report: TSH 4.650 0.450-4.500 uIU/mL H Microalb/Creat Ratio, Randm Ur Reviewed date:01/12/2025 07:43:52 AM Interpretation: Performing Lab:[address] [id number], Phone - [phone], Director - Sameer Notes/Report: Creatinine, Urine 89.2 Not Estab. mg/dL Albumin, Urine 38.8 Not Estab. ug/mL Alb/Creat Ratio 43 0-29 mg/g creat H Severely increased: >300 Normal: 0 - 29 Moderately increased: 30 - 300 Lipid Panel Reviewed date:01/12/2025 07:43:52 AM Interpretation: Performing Lab:[address] [id number], Phone - [phone], Director - Sameer Notes/Report: Cholesterol, Total 123 100-199 mg/dL Triglycerides 55 0-149 mg/dL HDL Cholesterol 65 >39 mg/dL VLDL Cholesterol Miguel 12 5-40 mg/dL LDL Chol Calc (NIH) 46 0-99 mg/dL Hemoglobin A1C Reviewed date:01/12/2025 07:43:51 AM Interpretation: Performing Lab:[facility] [address] [place] [id number], Phone - [phone], Director - Sameer Notes/Report: Hemoglobin A1c 11.7 4.8-5.6 % H . Prediabetes: 5.7 - 6.4 Diabetes: >6.4 Glycemic control for adults with diabetes: <7.0 Comprehensive Metabolic Pane l 14 (CMP) Reviewed date:01/12/2025 07:43:52 AM Interpretation: Performing Lab:[facility] [address] [place] [id number], Phone - [phone], Director - Sameer Notes/Report: Glucose 67 70-99 [...] ALT (SGPT) 13 0-44 IU/L CBC/D/Plt Reviewed date:01/12/2025 07:43:52 AM Interpretation: Performing Lab:[facility] [address] [place] [id number], Phone - [phone], Director - Sameer Notes/Report: WBC 10.3 3.4-10.8 [...] % Immature Grans (Abs) 0.0 0.0-0.1 x10E3/uL Elder Abuse Suspicion Index (EASI) Reviewed date:01/05/2025 [...] date:01/05/2025 12:48:52 PM Interpretation: Performing Lab: Notes/Report: Reason For Referral Reason Follow Up Urology DO S 09/06/24 Diagnosis 1 Phimosis (N47.1) Referral Organization [facility] Referring Provider First Name Unique Referring Provider Last Name Linda Referring Provider Speciality Internal edicine Referred Provider Altaf Jimenez Referred Provider Specialty Urology Procedure 1 Established - Detail ed (09918) Procedure 2 Urinalysis (w/o micr o Auto) (02456) General Notes Loco Taylor 12/16 03:10:12 PM >has not been seen since 03/08/24 Clinical Notes Ana Maria Davis 2023 01:29:15 PM >CM reviewed background information and deems this referral as approved., Unique Mckeon 09/05/2024 12:50:20 PM >Approved. Referral Priority Routine Referral Appointment Date 09/06/2024 Reason Diabetic pt recently admitted at [facility] for hyperglycemia, all records scanned into chart Diagnosis 1 Type 2 diabetes jarrod itus with hyperglycemia (E11.65) Referral Organization [facility] Referring Provider First Name Unique Referring Provider Last Name Linda Referring Provider Speciality Internal edicine Referred Provider Specialty Health Inter vention, Disease Mgmt General Notes Jessica Monk 01/18 09:00:32 AM >Attempted to contact patient to initiate follow up calls. LVM requesting a return call to [phone]. [place] Nurse will follow up.Lacho Melissa 01/30/2025 09:41:10 AM >Attempted to contact patient to initiate follow up calls. LVM requesting a return call to [phone]. [place] Nurse will follow up.Lacho Melissa 02/03/2025 02:03:45 PM >Attempted to contact patient to initiate follow up calls. LVM requesting a return call to [phone]. UTR sent, please have patient reach out to [place] Team nurse to initiate follow up calls. Referral Priority Routine Reason New Patient Fax [place] Diagnosis 1 Knee pain (M25.569) Referral Organization [facility] Referring Provider First Name Unique Referring Provider Last Name Linda Referring Provider Speciality Internal edicine Referred Provider Yin Hargrove Referred Provider Specialty Orthopedic S urgery Procedure 1 New Patient - Compre hensive/Moderate (63782) Procedure 2 Depo-Medrol, 1mg (J1 010) Procedure 3 INJ BETAMETHSN ACTAT &SOD PHOSPH-3MG (J0702) Procedure 4 DRAIN/INJECT, JOINT/ BURSA, MAJOR (20047) Procedure 5 X-RAY EXAM, KNEE, 4 OR MORE (75496) General Notes Ryan, Ana Maria 2024 10:59:48 AM >This is a f/u [...] PT GETTING MED THROUGH [facility]GRAM THROUGH [employer] P[facility] . CONTACT [facility] PHARMACIST FOR ANY CHANGES. DO NOT SEND TO LOCAL PHARMACY. per -25 [facility] admission 03/17/2024 Active Centrum Silver - Tablet TAKE 1 TABLET Daily In The Morning Oral DAILY; Duration: 0 days per 25 [facility] admission 11/29/2018 Active metFORMIN HCl 1000 MG Tablet TAKE 1 TABLET BY MOUTH TWICE DAILY (IN THE MORNING AND EVENING); Duration: 28 Active OneTouch Delica Plus [id number] - Miscellaneous ; Duration: 90 days 04/01/2022 Active Pantoprazole Sodium 40 MG Tablet Delayed Release TAKE 1 TABLET BY MOUTH ONCE A DAY HALF AN HOUR BEFORE FOOD IN THE MORNING (FOR BLISTER PACK); Duration: 28 Active Ondansetron 4 MG Tablet Disintegrating DISSOLVE 1 MG BY MOUTH EVERY 8 HOURS NEEDED FOR NAUSEA Oral OTHER; Duration: 5 days per -25 [facility] admission 05/28/2023 Active Multi-Vitamin/Iron - Tablet Oral; Duration: 0 days per 22-25 [facility] admission 04/04/2022 Active Aspirin 81 MG Tablet Delayed Release TAKE 1 TABLET DAILY IN THE EVENING; Duration: 28 per [facility] admission Active Clotrimazole 1 % Cream APPLY SPARINGLY T O AFFECTED AREA(S) TWICE DAILY External TWICE DAILY; Duration: 0 days per [facility] admission 09/30/2023 Active Iron 325 (65 Fe) MG Tablet TAKE 1 TABLET BY MOUTH ONCE DAILY Oral OTHER; Duration: 0 days per [facility] admission 03/17/2024 Active Comenta TVTouch Verio Reflect w/Device Kit ; Duration: 1 days [...] DAILY Ophthalmic OTHER; Duration: 25 days per [facility] admission 07/09/2022 Active B-12 1000 MCG Tablet TAKE 1 TABLET BY MOUTH EVERY DAY DIRECTED Oral OTHER; Duration: 0 days per [facility] admission 03/17/2024 Active Lantus 100 UNIT/ML Solution 45 unit(s) Subcutaneous daily per [facility] admission Active Vitamin D3 1.25 MG (41745 UT) Capsule 1 capsule Orally once a week x 12 weeks then take OTC vitamin D 2000 units daily; Duration: 90 day(s) 01/17/2025 Active Acetaminophen 325 MG Tablet 1 tablet as needed Orally every 6 hrs per [facility] admission Active True Metrix Blood Glucose Test - Strip TEST 3 TIMES DAILY. In Vitro 3 TIMES DAILY; Duration: 0 days 03/28/2022 Active Vitamin B-12 6000 MCG Tablet Sublingual Sublingual; Duration: 0 days per [facility] admission 04/04/2022 Active Tamsulosin HCl 0.4 MG Capsule TAKE 1 CAPSULE BY MOUTH AT BEDTIME (FOR BLISTER PACK) Oral OTHER; Duration: 28 days per [facility] admission 01/06/2019 Active Triamcinolone Acetonide 0.1 % Cream APPLY 2-3 TIMES DAILY TO AFFECTED AREA(S). External 3 TIMES DAILY; Duration: 0 days per 2024.02.22-25 [facility] admission 01/16/2020 Active Immunizations Vaccine Route Administration Date Status Comme nts COVID-19 (Hanna), Single Dose IM Intramuscular 01/18/2021 Administered COVID-19 (Pfizer), generic/dose unspecified IM Intramuscular 11/07/2021 Administered Fluad Unknown 12/07/2019 Administered Fluad Vaccine, Quadrivalent PFS IM Intramuscular 08/30/2022 Administered Fluarix Vaccine, Quadrivalent IM Intramuscular 08/24/2018 Administered Fluarix Vaccine, Quadrivalent IM Intramuscular 09/04/2021 Administered Flucelvax Vaccine, Quadrivalent PFS IM Intramuscular 08/08/2020 Administered Influenza Vaccine Unknown 08/19/2011 Administered Pneumococcal Vaccine (PCV20) (Prevnar 20) IM Intramuscular 08/30/2022 Administered Social History Social History Elder Abuse Suspicion [...] Questionnaire 1. In the past six [facility], have you accidentally leaked urine? No [...] Status W/U Status Risk Notes Problem Anemia (170343034) Anemia, unspecified (D64.9) 2018 Active confirmed - VERA Problem Non-thrombocytope toan purpura (623896887) Other nonthrombocytopen ic purpura (D69.2) 2020 Active confirmed Problem Type 2 diabetes mellitus with peripheral angiopathy (070402455) Type 2 diabetes mellitus with diabetic peripheral angiopathy without gangrene (E11.51) 2018 Active confirmed Problem Type 2 diabetes mellitus with other specified complication (E11.69) 2018 Active confirmed DM + HLD Problem Essential tremor (637719662) Essential tremor (G25.0) 2018 Active confirmed Problem Myasthenia gravis without exacerbation (02371702946774) Myasthenia gravis without (acute) exacerbation (G70.00) 2019 Active confirmed -Positive acetylcholine receptor binding antibodies, acetylcholine receptor blocking antibodies, acetylcholine receptor modulating antibodies and antis triation antibodies in July 2020 Problem 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 Problem Stricture of artery (28041225) Stricture of artery (I77.1) 2018 Active confirmed -chest xr done on 07/21/16 Problem History of artificial joint (830447250) Presence of left artificial hip joint (Z96.642) 2020 Active confirmed [id number]/ 10/2021, IMPRESSION: 12/27/2020 By: Unique Mckeon - -Uneventful surgery -Continue aspirin twice daily for DVT prophylaxis -Continue oxycodone until finished -Continue therapy at home -Follow-up scheduled with the orthopedics in 5 days . Problem Vitamin D deficiency (41462743) Vitamin D deficiency (E55.9) Active confirmed Problem Hyperglycemia due to type 2 diabetes mellitus (857427421894837) Type 2 diabetes mellitus with hyperglycemia (E11.65) 2022 Active confirmed Problem Mixed hyperlipidemia (121529343) Mixed hyperlipidemia (E78.2) 2018 Active confirmed Problem Hypertensive heart disease (72395902) Hypertensive heart disease (I11.9) Active confirmed Problem Benign prostatic hypertrophy without outflow obstruction (135610083) Benign prostatic hyperplasia without lower urinary tract symptoms (N40.0) 2018 Active confirmed Problem Anxiety disorder (391324040) Anxiety disorder, unspecified (F41.9) 2023 Active confirmed Problem 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 Problem Supraventricular tachycardia (disorder) (9703032) Supraventricular tachycardia, unspecified (I47.10) 2022 Active confirmed Vital Signs Temperature 98.2 degrees Fahrenheit 02/08/2025 Respiratory Rate 15 /min 02/08/2025 Blood pressure diastolic 87 mm Hg 02/08/2025 Oximetry 98 % 02/08/2025 Height 67 in 02/08/2025 Blood pressure systolic 139 mm Hg 02/08/2025 Weight 148.0 lbs 02/08/2025 BMI 23.18 kg/m2 02/08/2025 Encounters Encounter Location Date Provider Diagnosis [facility] [address] [place], [place] [id number] 08/29/2024 Unique Linda [facility] [address] [employer] [place] [id number] 10/10/2024 Unique Linda Type 2 diabetes jarrod itus with other specified complication E11.69 ; Essential (primary) hypertension I10 and 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 [facility] [address] [place], [place] [id number] 10/03/2024 Unique Linda Type 2 diabetes jarrod itus with other specified complication E11.69 ; Myasthenia gravis without (acute) exacerbation G70.00 ; Hyperlipidemia, unspecified E78.5 and Essential (primary) hypertension I10 [facility] [address] [place], [place] [id number] 01/10/2025 Unique Linda Other nonthrombocyto penic purpura D69.2 ; Type 2 diabetes mellitus with other specified complication E11.69 ; Anemia, unspecified D64.9 ; Myasthenia gravis without (acute) exacerbation G70.00 ; Mixed hyperlipidemia E78.2 ; Type 2 diabetes mellitus with hyperglycemia E11.65 ; Iron deficiency anemia, unspecified iron deficiency anemia type D50.9 and Hypertensive heart disease I11.9 [facility] [address] [place], [place] [id number] 10/12/2024 Unique Linda [facility] [address] [place] [id number] 12/28/2024 Unique Linda [facility] [address] [place], [place] [id number] 01/02/2025 Unique Linda [facility] [address] [place], [place] [id number] 01/04/2025 Unique Linda [facility] [address] [place], [place] [id number] 01/05/2025 Unique Linda Encounter for genera l [...] (acute) exacerbation G70.00 ; Unspecified atherosclerosis of [place] arteries of extremities, right leg I70.201 ; Stricture of artery I77.1 ; Type 2 diabetes mellitus with hyperglycemia E11.65 ; Mixed hyperlipidemia E78.2 ; Supraventricular tachycardia, unspecified I47.10 ; Brain atrophy G31.9 and Hypertensive heart disease I11.9 [facility] [address] [place], [place] [id number] 01/04/2025 Unique Linda [facility] [address] [place], [place] [id number] 01/05/2025 Unique Linda [facility] [address] [place], [place] [id number] 01/06/2025 Unique Linda [facility] [address] [place], [place] [id number] 01/09/2025 Unique Linda Type 2 diabetes jarrod itus with other specified complication E11.69 ; Other nonthrombocytopenic purpura D69.2 ; Anemia, unspecified D64.9 ; Myasthenia gravis without (acute) exacerbation G70.00 ; Mixed hyperlipidemia E78.2 ; Type 2 diabetes mellitus with hyperglycemia E11.65 ; Iron deficiency anemia, unspecified iron deficiency anemia type D50.9 and Hypertensive heart disease I11.9 [facility] [address] [place], [place] [id number] 01/12/2025 Unique Linda [facility] [address] [place], [place] [id number] 01/12/2025 Unique Linda Swelling of right ortega nd M79.89 [facility] [address] [place], [place] [id number] 01/20/2025 Unique Linda [facility] [address] [place], [place] [id number] 01/13/2025 Unique Linda [facility] [address] [place], [place] [id number] 01/17/2025 Unique Linda Encounter for genera l adult medical examination with abnormal findings Z00.01 ; Vitamin D deficiency E55.9 ; Hypertensive heart disease I11.9 and Type 2 diabetes mellitus with hyperglycemia E11.65 [facility] [address] [place] [id number] 01/25/2025 Uniqeu Linda [facility] [address] [place], [place] [id number] 02/08/2025 Unique Linda Hypertensive heart d isease I11.9 and Type 2 diabetes mellitus with hyperglycemia E11.65 [facility] [address] [place], [place] [id number] 03/30/2025 Unique Linda Assessments Encounter Date Diagnosis (ICD Code) Assessment Notes Treatment Notes Treatment Clinical Notes Section Notes 01/05/2025 Encounter for genera l adult medical examination with abnormal findings (ICD-10 - Z00.01) -Age and gender appropriate screening/immunizatio ns discussed. -Meds updated and reconciled. 01/05/2025 Hospital discharge follow-up (ICD-10 - Z09) Records reviewed. Meds updated and reconciled. f/u in 1 month. 01/10/2025 Other nonthrombocytopenic purpura (ICD-10 - D69.2) 01/10/2025 Type 2 diabetes mellitus with other specified complication (ICD-10 - E11.69) 10/10/2024 Type 2 diabetes mellitus with other specified complication (ICD-10 - E11.69) poorly controlled increase ozempic to 1mg/week with PAP increase glipizide to 10 mg BID (5 mg dose sent to [facility] to add to the 5 mg dose [...] gravis without (acute) exacerbation (ICD-10 - G70.00) 01/12/2025 Swelling of right hand (ICD-10 - M79.89) 01/17/2025 Encounter for genera l adult medical examination with abnormal findings (ICD-10 - Z00.01) 01/17/2025 Vitamin D deficiency (ICD-10 - E55.9) 02/08/2025 Hypertensive heart disease (ICD-10 - I11.9) Maintain blood pressure at a goal of <140/90 and monitor blood pressure as directed. Write down these numbers for review during your next appointment. Continue with current treatment. Follow a low sodium diet. Exercise as tolerated and avoid stress. 01/09/2025 Type 2 diabetes mellitus with other specified complication (ICD-10 - E11.69) 01/09/2025 Other nonthrombocytopenic purpura (ICD-10 - D69.2) 02/08/2025 Type 2 diabetes mellitus with hyperglycemia (ICD-10 - E11.65) continue current treatment improved BG readings. 10/03/2024 Hyperlipidemia, unspecified (ICD-10 - E78.5) 10/10/2024 Immunodeficiency due to conditions classified elsewhere (ICD-10 - D84.81) secondary to poorly controlled DM. continue to monitor 01/10/2025 Anemia, unspecified (ICD-10 - D64.9) 01/05/2025 Type 2 diabetes mellitus with other specified complication (ICD-10 - E11.69) poorly controlled increase ozempic to 2 mg/week with PAP continue lantus 45 units qHS needs to maintain a home BG log and bring it to the next pharmacy team on board 01/10/2025 Myasthenia gravis without (acute) exacerbation (ICD-10 - G70.00) 10/03/2024 Essential (primary) hypertension (ICD-10 - I10) 01/17/2025 Hypertensive heart disease (ICD-10 - I11.9) Maintain blood pressure at a goal of <140/90 and monitor blood pressure as directed. Write down these numbers for review during your next appointment. Continue with current treatment. Follow a low sodium diet. Exercise as tolerated and avoid stress. 01/05/2025 Immunodeficiency due to conditions classified elsewhere (ICD-10 - D84.81) secondary to poorly controlled DM. continue to monitor 01/09/2025 Anemia, unspecified (ICD-10 - D64.9) 01/17/2025 Type 2 diabetes mellitus with hyperglycemia (ICD-10 - E11.65) continue current treatment improved BG readings. 01/05/2025 Other nonthrombocytopenic purpura (ICD-10 - D69.2) Reassurance. Avoid skin trauma. Prevent falls. Recommend using sunscreen and sun protective hats/clothing when outdoors. 01/09/2025 Myasthenia gravis without (acute) exacerbation (ICD-10 - G70.00) 01/10/2025 Mixed hyperlipidemia (ICD-10 - E78.2) 01/10/2025 Type 2 diabetes mellitus with hyperglycemia (ICD-10 - E11.65) 01/09/2025 Mixed hyperlipidemia (ICD-10 - E78.2) 01/05/2025 Type 2 diabetes mellitus with diabetic peripheral angiopathy without gangrene (ICD-10 - E11.51) plan under DM 01/10/2025 Iron deficiency anemia, unspecified iron deficiency [...] his own doing okay continue to monitor 01/10/2025 Hypertensive heart disease (ICD-10 - I11.9) 01/09/2025 Iron deficiency anemia, unspecified iron deficiency anemia type (ICD-10 - D50.9) 01/09/2025 Hypertensive heart disease (ICD-10 - I11.9) 01/05/2025 Unspecified atherosclerosis of [place] arteries of extremities, right leg (ICD-10 - [...] Insured Coverage Start Date Coverage End Date [id number] [employer] [address] [address] [place], [place] [phone] [id number] Demario Kevin Self - patient is the insured Medications Administered Medication Instructions Date of Administration Dosage Notes 0.9% Sodium Chloride 02/04/2019 500 mL 0.9% Sodium Chloride 02/18/2019 1000 mL 0.9% Sodium Chloride 04/30/2021 1000 mL Cyanocobalamin B12, 1000mcg/mL 12/10/2023 1 mL Cyanocobalamin B12, 1000mcg/mL 12/17/2023 1 mL Dexamethasone Sodium Phosphate, 4mg 10/14/2019 4 mg Dexamethasone Sodium Phospha te, 4mg/mL 01/12/2025 4 mg Ketorolac Tromethamine 10/14/2019 30 mg Ketorolac Tromethamine 05/28/2023 30 mg Ketorolac Tromethamine 12/15/2023 30 mg Lactated Ringers, 1000mL (Hi gh Alert) 01/26/2023 1000 mL Lactated Ringers, 1000mL (Mo gh Alert) 05/28/2023 500 mL Lactated Ringers, 1000mL (Mo gh Alert) 11/25/2023 1000 mL Lactated Ringers, 1000mL (Mo gh Alert) 02/09/2024 1000 mL Methylprednisolone Acetate, [...]
--- OUTSIDE RECORDS SUMMARY | 2025-07-25 10:19 | XMS_ITS | Patient Health Record ---
Author Organization [facility] Address [address] [place] [address] Care Team Providers Care Gizzard Skin Remover Name Role Phone Unique Mckeon Primary Care Provider Catie Hernadez Unavailable [phone] Allergies Allergen (clinical drug ingredient) Drug/Non Drug Allergy documented on EMR Reaction Allergy Type Onset Date Status angiotensin-converting enzyme inhibitor (FN) ALFONZO Inhibitors Unknown Drug Allergy Acti ve Reason For Referral No Information Medications Medication SIG (Take, Route, Frequency, Duration) Notes Start Date End Date Status Triamcinolone Acetonide 0.1 % Cream 1 application Externally Two times a Week Active Pantoprazole Sodium 40 MG Tablet Delayed Release 1 tablet Orally Once a day; Duration: 90 days 03/13/2022 Active Glimepiride 4 MG Tablet 1 tablet with br eakfast or the first main meal of the day Orally Once a day Active Acetaminophen 500 MG Tablet 1 tablet as needed Orally every 6 hrs Active Metoprolol ER 25 MG QD Active pyRIDostigmine Bud 60 MG Tablet 1 tablet Orally every 4 hrs; Duration: 30 day(s) Active Tamsulosin HCl 0.4 MG Capsule 1 capsule Orally Once a day; Duration: 30 day(s) Active Tresiba FlexTouch 200 UNIT/ML Solution Pen-injector as directed Subcutaneous Act gabriel amLODIPine Besylate 5 MG Tablet 1 tablet Orally Once a day; Duration: 30 day(s) Active Aspir-Low 81 MG Tablet Delayed Release 1 tablet Orally Once a day; Duration: 30 day(s) Active Januvia 100 MG Tablet 1 tablet Orally On ce a day; Duration: 30 day(s) Active metFORMIN HCl 1000 MG Tablet 1 tablet with a meal Orally twice a day Active Problems Problem Type SNOMED Code ICD Code Onset Dates Problem Status W/U Status Risk Notes Problem Hemorrhage of rectum and anus (421235180) Hemorrhage of anus and rectum (K62.5) Active confirmed Problem Dysphagia (74941747) Dysphagia (R13.10) Active confirmed Problem Gastroesophageal reflux disease (518599669) Gastro esophageal reflux disease (K21.9) Active confirmed Plan Of Treatment No Information Insurance Providers Payer Name Payer Address Payer Phone Subscriber Number Group Number Insured Name Patient Relationship to Insured Coverage Start Date Coverage End Date [facility] [employer] [address] [address] [place] [phone] [id number] Demario Kevin Self - patient is the insured MEDICAID [address] [place] [address] [id number] Demario Kevin Self - patient is the insured Medical (General) History Medical History History ICD Code hyperlipidemia hypertension benign prostatic hyperplasia (BPH) cardiomyopathy Heart Disease SVT type II diabetes Surgical History Surgery Date(Month/Year) hip surgery
--- OUTSIDE RECORDS SUMMARY | 2025-07-25 10:19 | XMS_ITS | Patient Health Record ---
Author Organization [facility] Address [address] [address] Phone [phone] Care Team Providers Care Mathematics Instructor Name Role Phone Nolberto Cook Primary Care Provider Allergies Allergen (clinical drug [...] other tobacco user? No Section Notes: Quit [id number]. Quit [id number]. Quit [id number]. Quit [id number]. Quit [id number]. Quit [id number]. Quit [id number]. Quit [id number]. Quit [id number]. Quit [id number]. Problems Problem Type SNOMED Code ICD Code Onset Dates Problem Status W/U Status Risk Notes Problem Neurologic disorder associated with type II diabetes mellitus (493623103) Diabetes with neurological manifestations, type II or unspecified type, not stated as uncontrolled (250.60) Active confirmed Problem Neurologic disorder associated with type II diabetes mellitus (810231681) Diabetes with neurological manifestations, type II or unspecified type, uncontrolled (250.62) Active confirmed Problem Diabetic polyneuropathy (20904092) Polyneuropathy in diabetes (357.2) Active confirmed Problem Peripheral vascular disease (030861765) Unspecified peripheral vascular disease (443.9) Active confirmed Problem 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) (89514667) Benign hypertensive heart disease without heart failure (402.10) Active confirmed Problem 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.21) Active confirmed Problem Venous varices (607801456) Asymptomatic varicose veins (454.9) Active confirmed Problem Synovial popliteal cyst (disorder) (0878768174) Synovial cyst of popliteal space (727.51) Active confirmed Problem Osteopetrosis (6740280) Osteopetrosis (756.52) Active confirmed Problem Insomnia (963912941) Insomnia, u nspecified (780.52) Active confirmed Problem Body mass index 25-2 9 - overweight (337848938) Body Mass Index 26.0-26.9, adult (V85.22) Active confirmed Problem Pure hypercholesterolemia (294877923) Pure hypercholesterolemia (E78.0) Active confirmed Problem Diabetic polyneuropathy (00648675) Polyneuropathy in diabetes (E11.42) Active confirmed Problem Benign paroxysmal positional vertigo (098131395) Benign paroxysmal positional vertigo (H81.10) Active confirmed Problem BMI 25-29 - overweight (956431373) Body mass index 27.0-27.9, adult (Z68.27) Active confirmed Problem Hypertensive retinopathy (8451640) Hypertensive retinopathy of both eyes (362.11) Active confirmed Problem Weakness (02726005) Weakness (R53.1) Active con firmed Problem Diabetic peripheral neuropathy associated with type 2 diabetes mellitus (0518588277411) Type 2 diabetes mellitus with diabetic neuropathy, unspecified (E11.40) Active confirmed Problem Insomnia (691296468) Insomnia, u nspecified (G47.00) Active confirmed Problem Hypertensive retinopathy (5371275) Hypertensive retinopathy, unspecified eye (H35.039) Active confirmed Problem 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 (35278796) Hypertensive heart disease without heart failure (I11.9) Active confirmed Problem Enlarged prostate (566704377) Enlarged prostate without lower urinary tract symptoms (N40.0) Active confirmed Problem Osteopetrosis (5818469) Osteopetrosis (Q78.2) Active confirmed Problem Body mass index 25-2 9 - overweight (647984945) Body mass index (BMI) 26.0-26.9, adult (Z68.26) [...] 2 chronic insomnia osteopetrosis osteoarthritis shoulder,hip;left knee-se anthoyn xray 05/25/15 diabetic peripheral neuropathy influenza vaccine 08/2013; 2013 @[facility] pneumovax in hospital 1994;2013 @[facility] Diabetes mellitus without me ntion of complication, type II or unspecified type, not stated as uncontrolled varicose veins legs 06/09/14 u/s Dr. alessia guerrero MD [facility]. surgeon catract; htn retinopathy, dry maculopath y 05/2015 DR. Kevin bravo DO report positional vertigo Surgical History Surgery Date(Month/Year) Right THR 1979 torn armond R knee 1969 colonoscopy: normal 2010
[2025-07-25 13:51] LABS: Hemoglobin A1C 6.1 % (4.0-6.0)
[2025-07-25 14:17] LABS: Alanine Aminotransferase 30 U/L (12-78); Albumin Level 4.2 g/dl (3.5-5.0); Albumin/Globulin Ratio 1.3 (1.1-1.8); Alkaline Phosphatase 182 U/L (38-126); Anion Gap 14.0 mEq/L (5-15); Aspartate Amino Transferase 33 U/L (17-59); Bilirubin,Total 0.7 mg/dl (0.2-1.3); Blood Urea Nitrogen 15 mg/dl (9-20); Calcium 9.1 mg/dl (8.4-10.2); Carbon Dioxide 26 mmol/L (22.0-30.0); Chloride 106 mmol/L (98-107); Creatinine,Serum 0.80 mg/dl (0.66-1.25); Estimated Glomerular Filt Rate 92 ml/min (>60); GFR (African American) 111 ML/MIN (>60); Globulin 3.2 g/dL (1.3-3.2); Glucose 139 mg/dl (74-100); Potassium 5.0 mmoL/L (3.5-5.1); Sodium 141 mmol/L (136-145); Total Protein,Serum 7.4 g/dl (6.3-8.2)
== END 2025-07-25 23:59 | disposition home or self-care (01) ==
LOC: RAD 09:50
PROVIDERS: PCP Internal Medicine; Visit Provider Internal Medicine
DX: M25.569 Pain in unspecified knee (principal); E11.9 Type 2 diabetes mellitus without complications; Z79.4 Long term (current) use of insulin; Z79.899 Other long term (current) drug therapy
CPT/HCPCS: 73560; 80053; 82043; 82570; 83036

== ENCOUNTER 2025-08-14 10:11 | Emergency (ER) | payer MEDICARE, SELFPAY ==
[2025-08-14] VITALS (38 sets, daily range): BP systolic 107–163; BP diastolic 64–108; PULSE 59–180; RESP 11–18; TEMP 36.6; O2SAT 95–98; BMI 24.7
--- NOTE | 2025-08-14 10:19 | ECG_ITS ---
APPROVED REPORT Exam: Resting ECG HR:181 bpm ECG Measurements Heart Rate 181 AXES QRSd 106 QRS 2 QT 240 T 8 QTc 335 Conclusion Supraventricular tachycardia Electronically signed by : Curtis Austin, 08/14/2025 15:45:50
[2025-08-14] MEDS: METOPROLOL TARTRATE 5MG/5ML VIAL 5 MG IV (10:25)
--- NOTE | 2025-08-14 10:31 | ECG_ITS ---
APPROVED REPORT Exam: Resting ECG HR:88 bpm ECG Measurements Heart Rate 88 AXES [place] 263 P 38 QRSd 93 QRS -7 QT 342 T 2 QTc 387 Conclusion Sinus rhythm with marked first-degree AV block and PACs with sinus pause Electronically signed by : Curtis Austin, 08/14/2025 15:47:02
--- NOTE | 2025-08-14 10:32 | ECG_ITS ---
APPROVED REPORT Exam: Resting ECG HR:91 bpm ECG Measurements Heart Rate 91 AXES QRSd 89 QRS -5 QT 321 T 7 QTc 370 Conclusion Sinus rhythm with marked first-degree AV block Electronically signed by : Curtis Austin, 08/14/2025 15:46:36
[2025-08-14 10:33] LABS: Hematocrit 44.0 % (42.0-52.0); Hemoglobin 14.7 g/dL (14.1-18.0); Immature Granulocytes % 0.5 %; Mean Corpuscular HGB Conc 33.4 g/dL (31.8-35.4); Mean Corpuscular Hemoglobin 29.9 pg (27.0-31.2); Mean Corpuscular Volume 89.6 fl (80-94); Nucleated Red Blood Cells % 0 %; Platelet Count 239 K/mm3 (142-424); Red Blood Count 4.91 M/mm3 (4.60-6.20); Red Cell Distribution Width-SD 44.9 fL; White Blood Count 9.6 K/mm3 (4.8-10.8)
[2025-08-14 10:37] LABS: Albumin Level 3.7 g/dl (3.5-5.0); Chloride 107 mmol/L (98-107); Potassium 3.9 mmoL/L (3.5-5.1); Sodium 140 mmol/L (136-145)
[2025-08-14 10:39] LABS: INR 1.00 (0.9-1.1); Prothrombin Time 11.1 seconds (10.1-12.5)
[2025-08-14 10:40] LABS: Alanine Aminotransferase 30 U/L (12-78); Albumin/Globulin Ratio 1.0 (1.1-1.8); Alkaline Phosphatase 268 U/L (38-126); Anion Gap 10.9 mEq/L (5-15); Aspartate Amino Transferase 28 U/L (17-59); Bilirubin,Total 0.5 mg/dl (0.2-1.3); Blood Urea Nitrogen 24 mg/dl (9-20); Calcium 9.3 mg/dl (8.4-10.2); Carbon Dioxide 26 mmol/L (22.0-30.0); Creatinine,Serum 1.00 mg/dl (0.66-1.25); Estimated Glomerular Filt Rate 71 ml/min (>60); GFR (African American) 86 ML/MIN (>60); Globulin 3.6 g/dL (1.3-3.2); Glucose 153 mg/dl (74-100); Lipase 80 U/L (23-300); Total Protein,Serum 7.3 g/dl (6.3-8.2)
[2025-08-14] MEDS: METOPROLOL SUCCINATE XL 100MG TABLET 100 MG PO (10:45)
--- NOTE | 2025-08-14 10:50 | CT_ITS ---
FINAL REPORT TECHNIQUE: Thin section axial images were obtained through the lumbar spine without contrast. Sagittal and coronal reconstruction images were obtained from the axial data. Exam was performed using dose reduction techniques. CLINICAL HISTORY: Midline lumbar spine pain, injury FINDINGS: Bones are osteopenic which limits exam sensitivity. There is a superior endplate compression fracture of L4 which may be acute. There is less than 25% loss of vertebral body height. No other fracture is seen of the lumbar spine. However, there are bilateral sacral ala fractures which are likely insufficiency fractures and probably subacute. There is multilevel degenerative disc disease, most pronounced at L1-2 and L5-S1. IMPRESSION: L4 superior endplate compression fracture which may be acute. Consider MRI for further evaluation. Bilateral sacral ala fractures which are age-indeterminate, possibly subacute. Reviewed, Interpreted and Dictated by Dasha Ly MD Transcribed by Leonarda Lawton Authenticated and [facility]
--- NOTE | 2025-08-14 10:50 | CT_ITS ---
FINAL REPORT TECHNIQUE: Axial CT images of the thoracic spine were obtained without contrast. Sagittal and coronal reformatted images were also obtained. This study was performed with techniques to keep radiation doses as low as reasonably achievable (ALARA). Individualized dose reduction techniques using automated exposure control or adjustment of mA and/or kV according to the patient''s size were employed. CLINICAL HISTORY: Lower T-spine tenderness FINDINGS: There are multiple thoracic compression deformities including T7, T8, T9 and T12 which are age-indeterminate. Bones are osteopenic. There is multilevel degenerative disc disease. IMPRESSION: Multiple age-indeterminate thoracic compression fractures. Consider MRI if indicated. Reviewed, Interpreted and Dictated by Dasha Ly MD Transcribed by Leonarda Lawton Authenticated and [facility]
--- NOTE | 2025-08-14 10:50 | CT_ITS ---
FINAL REPORT TECHNIQUE: Postcontrast axial images of the chest were performed in a CTA protocol. This study was performed with techniques to keep radiation doses as low as reasonably achievable, (ALARA). Individualized dose reduction technique using automated exposure control or adjustment of mA and/or kV according to the patient's size were employed. CLINICAL HISTORY: Chest pain, back pain, SVT FINDINGS: The heart is mildly enlarged. No adenopathy is identified. No pleural or pericardial effusion is identified. Exam is limited for dissection due to contrast bolus timing. There is no evidence of aneurysm. There is no filling defect to suggest pulmonary embolism. There is a mosaic attenuation pattern to the lungs bilaterally which is nonspecific but can be seen with small vessel or small airways disease. There is no focal consolidation. Limited imaging of the upper abdomen demonstrates a possible tiny focus of air in the incompletely imaged gallbladder. IMPRESSION: No evidence for PE on this exam. Exam limited for evaluation of dissection. Mild cardiomegaly. Mosaic attenuation pattern of the lungs which can be seen with small airways or small vessel disease. Reviewed, Interpreted and Dictated by Dasha Ly MD Transcribed by Leonarda Lawton Authenticated and [facility]
[2025-08-14] MEDS: LACTATED RINGERS 1000ML 1,000 ML 999 ML IV (10:59)
[2025-08-14 11:02] LABS: Troponin I < 0.01 ng/ml (0.00-0.034)
[2025-08-14 11:10] LABS: Thyroid Stimulating Hormone 2.60 uIU/mL (0.465-4.68)
--- NOTE | 2025-08-14 11:18 | PC.NURSE ---
PT TO CT
[2025-08-14] MEDS: IOPAMIDOL-370 (76%);100ML BOTTLE 80 ML IV (11:28)
[2025-08-14] MEDS: 0.9 % SODIUM CHLORIDE 50 ML VIAL IV (11:28)
[2025-08-14] MEDS: SODIUM CHLORIDE 0.9% 10ML SYR (RAD ONLY) 10 ML IV (11:28)
--- NOTE | 2025-08-14 11:33 | HMH.EDGENADL ---
Discharge Plan Disposition Patient Disposition: Home, Self-Care Condition: Good Prescriptions Prescriptions: New metoprolol succinate 50 mg tablet extended release 24 hr 100 mg PO BID Qty: 60 0RF methocarbamol 500 mg tablet 500 mg PO Q8H Qty: 90 0RF No Action pantoprazole 20 mg tablet,delayed release (DR/EC) 20 mg PO DAILY cholecalciferol (vitamin D3) 1,250 mcg (50,000 unit) capsule 1,250 mcg PO WEEKLY sertraline 50 mg tablet 50 mg PO DAILY Patient Comments: TAKE 1 TABLET BY MOUTH DAILY lisinopril 20 mg tablet 20 mg PO DAILY glipizide 10 mg tablet 10 mg PO BID Patient Comments: TAKE 1 TABLET 30 MINUTES BEFORE BREAKFAST ORALLY TWICE A DAY (DME) blood-glucose meter [Accu-Chek Guide Glucose Meter] Misc See Rx Instructions .ROUTE .MEDSUPPLY Qty: 1 Patient Comments: USE DIRECTED Rx Instructions: As directed (DME) lancets [OneTouch Delica Plus Lancet] 33 gauge misc See Rx Instructions .ROUTE .MEDSUPPLY Qty: 100 Patient Comments: CHECK BLOOD SUGAR FOUR TIMES A DAY WITH MEALS AND AT BEDTIME Rx Instructions: As directed (DME) UltiGuard SafePack-Pen Needle 32 gauge x 1/4 needle See Rx Instructions .ROUTE .MEDSUPPLY Qty: 100 Patient Comments: USE TO INJECT INSULIN ONE TIME DAILY Rx Instructions: As directed celecoxib [Celebrex] 100 mg capsule 100 mg PO BID Qty: 60 2RF vitamin E (dl, acetate) 450 mg (1,000 unit) capsule 450 mg PO DAILY (DME) lancets Misc See Rx Instructions .Route Qty: 200 3RF Rx Instructions: As directed (DME) blood sugar diagnostic Strip See Rx Instructions .Route Qty: 100 4RF Rx Instructions: As directed (DME) blood-glucose meter Kit See Rx Instructions .Route Qty: 1 0RF Rx Instructions: As directed insulin lispro [Humalog KwikPen Insulin] 100 unit/mL insulin pen 1 sliding scale dose SQ USEASDIRECTD MDD 30 Qty: 15 2RF (DME) Diabetic Shoes (DME) Misc See Rx Instructions .ROUTE .MEDSUPPLY Qty: 1 0RF Rx Instructions: [facility] Please dispense one (1) pair of Diabetic shoes with inserts insulin glargine 100 unit/mL (3 mL) insulin pen 25 unit SQ HS Qty: 9 3RF valsartan 40 mg tablet 40 mg PO DAILY Qty: 90 1RF Glyxambi 25-5 mg tablet See Rx Instructions .ROUTE .COMPLEX Qty: 90 6RF Dose Instruction: Take 1 tablet by mouth once daily Rx Instructions: Take 1 tablet by mouth once daily metoprolol succinate 50 mg tablet extended release 24 hr 100 mg PO BID Qty: 180 3RF Referrals Follow up/Referrals: Yuan Krause DO [Primary Care Provider, Family Practice] - See instructions Clinical Impressions Clinical Impression: Supraventricular tachycardia, Medication refill Closed compression fracture of thoracic vertebra Qualifiers: Encounter type: initial encounter Qualified Code(s): S22.000A - Wedge compression fracture of unspecified thoracic vertebra, initial encounter for closed fracture Closed compression fracture of L4 vertebra Qualifiers: Encounter type: initial encounter Qualified Code(s): S32.040A - Wedge compression fracture of fourth lumbar vertebra, initial encounter for closed fracture Print Language Print Language: Maori Discharge ED Provider: Curtis Austin Adult HPI General Chief complaint: Arrhythmia/Palpitations Stated complaint: Sent per Kevin Leung/High Heart Rate/High Glucose Time Seen by Provider: 08/14/25 10:15 Mode of Arrival: Ambulatory Source of Information: Patient Description of Symptoms (Recalled from ER Triage Doc. by RN): PT SENT FROM PCP FOR SVT. PT PRESENTED FOR BACK PAIN AFTER LIFTING HEAVY GEORGE FROM OVEN LAST WEEK. PT DENIES CHEST PAIN OR SHORTNESS OF BREATH. History of Present Illness HPI narrative: This is an 85-year-old male patient, with past medical history of hypertension, hyperlipidemia, diabetes, and recurrent SVT, who is presenting to the emergency department today from his primary care provider's office for an abnormal EKG. The patient actually presented to his primary care physician's office today for evaluation of back pain. He states that he was cooking in his kitchen the other day and as he bent over to lift something out of the oven he felt a sharp pain in his back that has persisted since that time. The patient was going to his primary care office today for evaluation of this persistent back pain and they obtained an EKG which showed that he was experiencing supraventricular tachycardia. He was referred here for further management. On arrival to the emergency department he states that he feels well and has not had any chest pain or shortness of breath. He denies lower extremity erythema or edema. He states that he does not feel palpitations usually when he goes into SVT. On prior chart review it seems that he has seen cardiology for this in the past and they have been managing him with 100 mg of metoprolol taken twice daily. The patient tells me that he ran out of his metoprolol and has not been taking this medication for the last 24 hours secondary to this Related Data Home Medications ?Medication ?Instructions ?Recorded ?Confirmed cholecalciferol (vitamin D3) 1,250 1,250 mcg PO WEEKLY 03/16/25 08/14/25 mcg (50,000 unit) capsule pantoprazole 20 mg tablet,delayed 20 mg PO DAILY 03/16/25 08/14/25 release vitamin E (dl, acetate) 450 mg 450 mg PO DAILY 03/21/25 08/14/25 (1,000 unit) capsule glipizide 10 mg tablet 10 mg PO BID 06/07/25 08/14/25 lisinopril 20 mg tablet 20 mg PO DAILY 06/07/25 08/14/25 sertraline 50 mg tablet 50 mg PO DAILY 06/07/25 08/14/25 blood-glucose meter (Accu-Chek #1 ea 06/08/25 08/14/25 Guide Glucose Meter) lancets 33 gauge (OneTouch Delica #100 ea 06/08/25 08/14/25 Plus Lancet) pen needle,diabetic, disp unit 32 #100 ea 06/08/25 08/14/25 gauge x 1/4 , remover and disposal unit (UltiGuard SafePack-Pen Needle) Previous Rx's ?Medication ?Instructions ?Recorded blood sugar diagnostic #100 ea 04/04/25 blood-glucose meter #1 ea 04/04/25 insulin lispro 100 unit/mL 1 sliding scale dose SQ 04/04/25 subcutaneous pen (Humalog KwikPen USEASDIRECTD #15 mL (U-100) Insulin) lancets #200 ea 04/04/25 insulin glargine 100 unit/mL (3 25 unit (0.25 mL) SQ HS #9 mL 04/25/25 mL) subcutaneous pen valsartan 40 mg tablet 40 mg PO DAILY #90 tabs 06/13/25 empagliflozin 25 mg-linagliptin 5 See Rx Instructions .Route 07/06/25 mg tablet (Glyxambi) .COMPLEX #90 tabs celecoxib 100 mg capsule (Celebrex) 100 mg PO BID #60 caps 07/25/25 Diabetic Shoes (DME) #1 ea 07/27/25 methocarbamol 500 mg tablet 500 mg PO Q8H #90 tabs 08/14/25 metoprolol succinate 50 mg 100 mg (2 x 50 mg) PO BID #180 tabs 08/14/25 tablet,extended release 24 hr metoprolol succinate 50 mg 100 mg (2 x 50 mg) PO BID #60 tabs 08/14/25 tablet,extended release 24 hr Allergies Allergy/AdvReac Type Severity Reaction Status Date / Time No Known Allergies Allergy Verified 08/14/25 09:23 [facility] Disclaimer: The information contained in this section may have been updated after the patient was seen, as this information can be updated by other users. Medical History GERD (gastroesophageal reflux disease) Hypertension Tachycardia Type 2 diabetes mellitus, with long-term current use of insulin Surgical History History of bilateral hip replacements H/O knee surgery History of hip replacement, total Social History Smoking Status: Former smoker alcohol intake: never current occupational status: retired Travel in the last 8 weeks?: Inside the [place] Have you lived/traveled outside US in past 30 days?: No Contact w/someone who lives/traveled outside US past 30 days?: No Exposure to someone with infectious disease in past 14 days?: No Do you have a fever (greater than 100.4 F or 38 C)?: No Have you tested positive for COVID-19?: No Exposed to someone with COVID-19 in past 14 days?: No Do you have a sore throat?: No Do you have a cough?: No Do you have any weakness?: No Do you have any diarrhea?: No Are you experiencing any unusual bleeding?: No Do you have any muscle aches/pain?: No Do you have any abdominal pain?: No Are you experiencing loss of taste or smell?: No Other Medical History Have you received the Pneumonia Vaccine: No ROS Obtained: Yes Systems reviewed as appropriate & no additional complaints except as documented Physical Exam General General appearance: other (See MDM) Respiratory Respiratory exam: Present other (See MDM) Cardiovascular Cardiovascular exam: Present other (See MDM) Neurological Exam Neurological exam: Present other (See MDM) Medical Decision Making Medical Records Medical records reviewed: Yes I reviewed the patient's medical records. Screening: Per USPSTF and CDC recommendations, given the prevalence of disease in our region, it is our hospital?s policy to screen for HIV and viral Hepatitis for all patients aged 18 and over and those with ongoing risk factors. Josafat Inquiry Pt receiving controlled substance: No Josafat was queried for this patient: No Vital Signs: 08/14/25 10:13 08/14/25 10:28 08/14/25 10:31 Temperature 97.9 F Temperature Source Oral Pulse Rate 152 H 97 H Pulse Rate [Apical] 180 H Respiratory Rate 18 18 17 Blood Pressure 107/86 L 147/92 H Blood Pressure [Right Arm] 107/86 L Blood Pressure Mean Blood Pressure Mean [Right Arm] 93 Blood Pressure Source [Right Arm] Automatic Cuff Blood Pressure Position [Right Arm] Sitting 02 Sat by Pulse Oximetry 98 95 97 Oxygen Delivery Method Room Air 08/14/25 10:33 08/14/25 11:00 08/14/25 11:03 Temperature Temperature Source Pulse Rate 94 H 78 78 Pulse Rate [Apical] Respiratory Rate 15 15 16 Blood Pressure 137/88 120/72 130/68 Blood Pressure [Right Arm] Blood Pressure Mean Blood Pressure Mean [Right Arm] Blood Pressure Source [Right Arm] Blood Pressure Position [Right Arm] 02 Sat by Pulse Oximetry 95 96 97 Oxygen Delivery Method 08/14/25 11:06 08/14/25 11:10 08/14/25 11:13 Temperature Temperature Source Pulse Rate 79 78 74 Pulse Rate [Apical] Respiratory Rate 16 17 13 Blood Pressure 114/68 130/75 146/72 H Blood Pressure [Right Arm] Blood Pressure Mean Blood Pressure Mean [Right Arm] Blood Pressure Source [Right Arm] Blood Pressure Position [Right Arm] 02 Sat by Pulse Oximetry 95 96 95 Oxygen Delivery Method 08/14/25 11:36 08/14/25 11:39 08/14/25 11:42 Temperature Temperature Source Pulse Rate 71 61 Pulse Rate [Apical] Respiratory Rate 12 13 13 Blood Pressure 160/72 H 155/75 H 145/69 H Blood Pressure [Right Arm] Blood Pressure Mean Blood Pressure Mean [Right Arm] Blood Pressure Source [Right Arm] Blood Pressure Position [Right Arm] 02 Sat by Pulse Oximetry 97 95 Oxygen Delivery Method 08/14/25 11:45 08/14/25 11:48 08/14/25 11:51 Temperature Temperature Source Pulse Rate 67 70 69 Pulse Rate [Apical] Respiratory Rate 13 13 12 Blood Pressure 138/72 152/72 H 152/73 H Blood Pressure [Right Arm] Blood Pressure Mean Blood Pressure Mean [Right Arm] Blood Pressure Source [Right Arm] Blood Pressure Position [Right Arm] 02 Sat by Pulse Oximetry 96 95 96 Oxygen Delivery Method 08/14/25 11:54 08/14/25 11:57 08/14/25 12:00 Temperature Temperature Source Pulse Rate 69 66 Pulse Rate [Apical] Respiratory Rate 15 13 12 Blood Pressure 141/68 H 150/69 H 147/71 H Blood Pressure [Right Arm] Blood Pressure Mean Blood Pressure Mean [Right Arm] Blood Pressure Source [Right Arm] Blood Pressure Position [Right Arm] 02 Sat by Pulse Oximetry 96 95 Oxygen Delivery Method 08/14/25 12:03 08/14/25 12:06 08/14/25 12:09 Temperature Temperature Source Pulse Rate 62 61 65 Pulse Rate [Apical] Respiratory Rate 12 12 14 Blood Pressure 163/69 H 155/68 H 150/67 H Blood Pressure [Right Arm] Blood Pressure Mean Blood Pressure Mean [Right Arm] Blood Pressure Source [Right Arm] Blood Pressure Position [Right Arm] 02 Sat by Pulse Oximetry 96 96 98 Oxygen Delivery Method 08/14/25 12:12 08/14/25 12:15 08/14/25 12:18 Temperature Temperature Source Pulse Rate 65 66 63 Pulse Rate [Apical] Respiratory Rate 15 14 14 Blood Pressure 151/70 H 154/71 H 150/73 H Blood Pressure [Right Arm] Blood Pressure Mean Blood Pressure Mean [Right Arm] Blood Pressure Source [Right Arm] Blood Pressure Position [Right Arm] 02 Sat by Pulse Oximetry 95 96 95 Oxygen Delivery Method 08/14/25 12:21 08/14/25 12:24 08/14/25 12:27 Temperature Temperature Source Pulse Rate 70 63 64 Pulse Rate [Apical] Respiratory Rate 14 14 15 Blood Pressure 153/71 H 150/64 H 154/68 H Blood Pressure [Right Arm] Blood Pressure Mean Blood Pressure Mean [Right Arm] Blood Pressure Source [Right Arm] Blood Pressure Position [Right Arm] 02 Sat by Pulse Oximetry 95 95 95 Oxygen Delivery Method 08/14/25 12:30 08/14/25 12:33 08/14/25 12:40 Temperature Temperature Source Pulse Rate 63 63 64 Pulse Rate [Apical] Respiratory Rate 14 14 14 Blood Pressure 145/70 H 148/66 H 150/66 H Blood Pressure [Right Arm] Blood Pressure Mean Blood Pressure Mean [Right Arm] Blood Pressure Source [Right Arm] Blood Pressure Position [Right Arm] 02 Sat by Pulse Oximetry 95 97 96 Oxygen Delivery Method 08/14/25 13:20 08/14/25 13:30 08/14/25 13:40 Temperature Temperature Source Pulse Rate 64 62 59 L Pulse Rate [Apical] Respiratory Rate 15 14 11 L Blood Pressure 144/68 H 157/73 H 131/108 H Blood Pressure [Right Arm] Blood Pressure Mean 113 Blood Pressure Mean [Right Arm] Blood Pressure Source [Right Arm] Blood Pressure Position [Right Arm] 02 Sat by Pulse Oximetry 96 98 96 Oxygen Delivery Method 08/14/25 13:51 08/14/25 14:00 08/14/25 14:21 Temperature Temperature Source Pulse Rate 62 59 L 61 Pulse Rate [Apical] Respiratory Rate 14 15 17 Blood Pressure 134/71 156/65 H 156/72 H Blood Pressure [Right Arm] Blood Pressure Mean 92 82 100 Blood Pressure Mean [Right Arm] Blood Pressure Source [Right Arm] Blood Pressure Position [Right Arm] 02 Sat by Pulse Oximetry 97 97 96 Oxygen Delivery Method 08/14/25 14:30 Temperature Temperature Source Pulse Rate 61 Pulse Rate [Apical] Respiratory Rate 17 Blood Pressure 149/72 H Blood Pressure [Right Arm] Blood Pressure Mean 97 Blood Pressure Mean [Right Arm] Blood Pressure Source [Right Arm] Blood Pressure Position [Right Arm] 02 Sat by Pulse Oximetry 96 Oxygen Delivery Method Lab Data Lab Results 08/14/25 10:22: WBC 9.6, RBC 4.91, Hgb 14.7, Hct 44.0, MCV 89.6, MCH 29.9, MCHC 33.4, RDW 13.6, Plt Count 239, MPV 11.5 H, Neut % (Auto) 63.1, Lymph % (Auto) 26.0, Saline % (Auto) 7.2, Eos % (Auto) 2.8, Baso % (Auto) 0.4, Neut # (Auto) 6.0, Lymph # (Auto) 2.5, Saline # (Auto) 0.7, Eos # (Auto) 0.3, Baso # (Auto) 0.0, PT 11.1, INR 1.00, Sodium 140, Potassium 3.9, Chloride 107, Carbon Dioxide 26, Anion Gap 10.9, BUN 24 H, Creatinine 1.00, Estimated GFR 71, Est GFR ( Amer) 86, Glucose 153 H, Calcium 9.3, Total Bilirubin 0.5, AST 28, ALT 30, Alkaline Phosphatase 268 H, Troponin I < 0.01, Total Protein 7.3, Albumin 3.7, Globulin 3.6 H, Albumin/Globulin Ratio 1.0 L, Lipase 80, TSH 2.60, Free T4 1.09 08/14/25 13:29: Troponin I < 0.01 08/14/25 10:22 08/14/25 10:22 Orders (Tests/Meds): ED MEDICATIONS Generic Name Dose Route Start Last Admin Trade Name Freq PRN Reason Stop Dose Admin Metoprolol Succinate 100 mg 08/14/25 10:45 08/14/25 10:45 Metoprolol Succinate Xl 100mg Tablet PO 09/13/25 10:44 100 mg DAILY ZAIDA Administration Discontinued Medications Generic Name Dose Route Start Last Admin Trade Name Freq PRN Reason Stop Dose Admin Lactated Ringer's 1,000 mls @ 999 mls/hr 08/14/25 10:50 08/14/25 10:59 Lactated Ringer's 1000 Ml Bag IV 08/14/25 11:50 999 mls/hr .Q1H1M ONE Administration Iopamidol 80 ml 08/14/25 11:27 08/14/25 11:28 Iopamidol-370 (76%);100ml Bottle IV 08/14/25 11:28 80 ml ONCE ONE Administration Methocarbamol 500 mg 08/14/25 14:10 Methocarbamol 500mg Tablet PO 08/14/25 14:11 ONCE ONE Metoprolol Tartrate 5 mg 08/14/25 10:25 08/14/25 10:25 Metoprolol Tartrate 5mg/5ml Vial IV 08/14/25 10:26 5 mg ONCE ONE Administration Sodium Chloride 50 ml 08/14/25 11:27 08/14/25 11:28 0.9 % Sodium Chloride 50 Ml Vial IV 08/14/25 11:28 50 ml ONCE ONE Administration Sodium Chloride 10 ml 08/14/25 11:27 08/14/25 11:28 Sodium Chloride 0.9% 10ml Syr (Rad Only) IV 08/14/25 11:28 10 ml ONCE ONE Administration ORDERS Category Date Time Status CT angio chest PE protocol Stat Cat Scan 08/14/25 10:[address] lumbar spine wo con Stat Cat Scan 08/14/25 10:[address] thoracic spine wo con Stat Cat Scan 08/14/25 10:50 Completed CBC w/Auto Diff [Complete Blood Count Auto Diff] Stat Lab 08/14/25 10:22 Completed CMP [Comprehensive Metabolic Panel] Stat Lab 08/14/25 10:22 Completed Free T4 (Free Thyroxine) Stat Lab 08/14/25 10:22 Completed HIV Combo Stat Lab 08/14/25 10:49 Ordered Hepatitis C Ab Qual. W/ RFX Stat Lab 08/14/25 10:49 Ordered Lipase Stat Lab 08/14/25 10:22 Completed PT INR [Prothrombin Time INR] Stat Lab 08/14/25 10:22 Completed TSH [Thyroid Stimulating Hormone] Stat Lab 08/14/25 10:22 Completed Troponin I Q3H Lab 08/14/25 13:29 Completed Troponin I Q3H Lab 08/14/25 16:30 Ordered Troponin I Stat Lab 08/14/25 10:22 Completed ECG Data Tracing #1: I reviewed this ECG and interpreted as documented below: EKG personally interpreted by me demonstrates supraventricular tachycardia with a rate of 181 bpm, normal axis, no overt ST elevation or depression. No QTc prolongation Tracing #2: I reviewed this ECG and interpreted as documented below: EKG personally interpreted by me demonstrates normal sinus rhythm with a rate of 91 bpm, left axis, NH prolongation consistent with first-degree AV block, narrow QRS, no QTc prolongation. No ST ovation or depression. No overt signs of ischemia. Isolated T wave inversion in lead III. Tracing #3: I reviewed this ECG and interpreted as documented below: EKG personally interpreted by me demonstrates normal sinus rhythm at a rate of 88 bpm, left axis, NH prolongation consistent with first degree AV block, no QTc prolongation. No ST elevation or depression. There is an isolated T wave inversion in lead III. No evidence of STEMI. Medical Decision Narrative: In summary, this is an 85-year-old male patient who is presenting to the emergency department today as a direct transfer from his primary care provider's office for evaluation of supraventricular tachycardia. In addition to this complaint the patient states that he has been having back pain after lifting something up out of his oven the other day. Patient is currently asymptomatic from a cardiac standpoint and is not having chest pain, shortness of breath, and does not subjectively experiencing palpitations despite his active supraventricular tachycardia. On arrival to the emergency department [facility]. His initial heart rate was in the 180s and appeared to be consistent with a narrow complex tachycardia. 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 He is hemodynamically stable, saturating well room air, and neurologically intact. He is appropriately alert and oriented with a GCS of 15. On auscultation of his chest he has normal breath sounds and does not tachypneic. No increased work of breathing. His lung sounds are normal bilaterally but his heart rate is fast. He has good capillary refill. Regarding his back pain, he does have midline thoracolumbar spine tenderness. He has full and intact motor and sensation in his bilateral lower extremities. He has not been experiencing any saddle anesthesia. He does not report any difficulty with urination Differential diagnosis includes supraventricular tachycardia, AVRT/AVNRT, electrolyte derangement, acute kidney injury, ACS/DC, pulmonary embolism, among others. Regarding his back pain differential includes rib fractures, thoracic spinal fractures, lumbar spine fractures, among others Following my examination of the patient we proceeded with an EKG which was fully interpreted above. This EKG was consistent with a narrow complex supraventricular tachycardia at a rate of 180 bpm. Given that the patient is on metoprolol at baseline and has not been taking his metoprolol for the last 24 hours I decided to treat him initially with 5 mg of IV metoprolol. Within seconds his tachyarrhythmia resolved and he converted to normal sinus rhythm. We repeated 2 consecutive EKGs which confirmed that he was in normal sinus rhythm. Given that he has not taken his metoprolol we decided to treat the patient with his home dose of metoprolol 100 mg orally We proceeded with a laboratory and imaging workup consisting of hematologic labs, CT of the thoracic spine, CT of the lumbar spine, and a CT pulmonary embolism study. Labs were personally interpreted by me and demonstrate no leukocytosis or anemia. Coagulation studies are normal. The patient has no significant electrolyte derangements or evidence of acute kidney injury. His troponin and delta troponin are both less than 0.01. TSH and free T4 are normal. CT PE was personally interpreted by me and demonstrates no evidence of saddle pulmonary embolus. Official radiology read is in agreement and states that there is no evidence for pulmonary embolus on this exam. CT scan of the thoracic spine was personally interpreted by me and demonstrates a marked T12 compression fracture which I feel is likely acute given that he is tender in this region on exam. He additionally has age-indeterminate compression fractures noted by radiology at the level of T7, T8, T9. CT of the lumbar spine was personally interpreted by me and demonstrates no bony malalignment, radiology further comments that there is an L4 superior endplate compression fracture which may be acute. I have had an interactive discussion with the orthopedic spine surgeon at the [facility], Dr. Porter, who stated that this patient did not necessitate any acute neurosurgical intervention given that he is neurologically intact. He does not recommend bracing unless the patient feels passionately about this. His office will plan to call the patient and schedule him a follow-up appointment in their clinic for 4 to 6 weeks from now. The patient has been monitored on continuous telemetry for 4 hours. He has not experienced any recurrence of SVT. I have relayed this plan to the patient and he acknowledges understanding and agreement We have treated him with 500 mg of Robaxin here in the emergency department for pain control. We will have him continue to take low-dose Robaxin and Tylenol at home for pain. I have also sent a prescription for his metoprolol to the pharmacy. We will have the patient return if he develops recurrence of tachycardia or intractable pain in his back, urinary incontinence, or neurologic symptoms at this time all questions have been answered and all parties are agreeable with the decision to discharge home. Critical Care Critical Care Time Critical Care Time: Yes Attestation: On 08/14/25, the high probability of a clinically significant, sudden or life threatening deterioration of the following system(s) required my full and direct attention, intervention and personal management. The time I documented below is in addition to time spent performing reported procedures but includes the following listed in this critical care notation. Total Time Total Critical Care Time: 40
[2025-08-14 12:00] LABS: Free T4 (Free Thyroxine) 1.09 ng/dl (0.78-2.19)
--- NOTE | 2025-08-14 12:03 | PC.NURSE ---
Called [facility] per Dr Austin to speak with them for a spinal consult for this pt with a thoracic fracture. Images were powershared and [facility] would call back.
--- NOTE | 2025-08-14 12:40 | PC.NURSE ---
DR WAGGONER SPEAKING WITH [facility]
[2025-08-14 14:12] LABS: Troponin I < 0.01 ng/ml (0.00-0.034)
[2025-08-14] MEDS: METHOCARBAMOL 500MG TABLET 500 MG PO (14:40)
[2025-08-14 18:39] LABS: Hepatitis C Ab Qual. W/ RFX NEGATIVE (Negative)
== END 2025-08-14 15:06 | disposition home or self-care (01) ==
PROVIDERS: Emergency Provider Student in an Organized Health Care Education/Training Program; PCP Internal Medicine
DX: I47.10 Supraventricular tachycardia, unspecified (principal); I44.0 Atrioventricular block, first degree; S22.080A Wedge compression fracture of T11-T12 vertebra, initial encounter for closed fracture; S22.070A Wedge compression fracture of T9-T10 vertebra, initial encounter for closed fracture; S22.060A Wedge compression fracture of T7-T8 vertebra, initial encounter for closed fracture; S32.040A Wedge compression fracture of fourth lumbar vertebra, initial encounter for closed fracture; E11.9 Type 2 diabetes mellitus without complications; I10 Essential (primary) hypertension; Z87.891 Personal history of nicotine dependence; X58.XXXA Exposure to other specified factors, initial encounter
CPT/HCPCS: 71275; 72128; 72131; 80053; 83690; 84439; 84443; 84484; 85025; 85610; 86803; 87389; 93005; 96361; 96374; 99285; J7120; Q9967

== ENCOUNTER 2025-09-25 08:57 | Outpatient (CLI) | payer MEDICARE, SELFPAY ==
--- NOTE | 2025-09-25 09:15 | XR_ITS ---
FINAL REPORT CLINICAL HISTORY: Osteopenia, muliple fractures METAL IN BOTH HIPS COMPARISON: None FINDINGS: Using L1-4, the bone mineral density of the spine is 0.899 g/cm2, corresponding to T-score of -1.7. Using the left forearm, the bone mineral density of the mid is 0.433 g/cm2, corresponding to a T-score of -5.1. NOTE: T-score: Standard deviation compared with peak bone mass of young adult mean. *Following the recommendations of the International Society of Bone densitometry, classification of hip BMD is based on the lower of two T-scores; total hip or femoral neck. IMPRESSION: Diminished bone mineral density of the lumbar spine consistent with osteopenia. Diminished bone mineral density of the left forearm, consistent with osteoporosis. Reviewed, Interpreted and Dictated by Talon Dai MD Transcribed by Geovanna Randhawa Authenticated and [facility]
== END 2025-09-25 23:59 | disposition home or self-care (01) ==
LOC: RAD 08:58
PROVIDERS: PCP Internal Medicine; Visit Provider Internal Medicine
DX: M81.0 Age-related osteoporosis without current pathological fracture; S32.040A Wedge compression fracture of fourth lumbar vertebra, initial encounter for closed fracture
CPT/HCPCS: 77080